=== PATIENT | male | born 1965 | race African-American/Black ===

== ENCOUNTER 2016-10-16 22:40 | Emergency (ER) | payer MEDICAID ==
[~2016-10-16] VITALS: Ht 188 cm; Wt 78.0 kg
[~2016-10-16 22:40] MED LIST: AZITHROMYCIN250 MG ORAL; CHLORPHENIRAMINE4 MG ORAL; CIPRO500 MG PO; IBUPROFEN600 MG ORAL; PHENERGAN6.25 MG/5 ORAL; PRILOSEC20 MG ORAL; TRAMADOL HCL50 MG ORAL
[2016-10-16] MEDS ORDERED: IBUPROFEN600 MG ORAL (23:11)
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
[2016-10-16 23:36] VITALS: BP 139/90
--- NOTE | 2016-10-17 09:22 | Diagnostic Imaging Report ---
Indications: Right knee pain Technique: 2 views right knee. Findings: Comparison: None Patella appears high in position on AP and oblique views but not lateral view. No fracture, additional dislocation, joint space widening or effusion, lytic destruction, periosteal reaction , surrounding soft tissue swelling/foreign body/gas, or other acute changes are identified. No chronic changes demonstrated. IMPRESSION: Apparent patella salomón on 2 of 3 views, likely projectional. Correlate clinically. Otherwise negative right knee series.
== END 2016-10-16 23:37 | disposition home or self-care (01) ==
LOC: EMR 23:15
DX: S80.01XA Contusion of right knee, initial encounter (principal); I10 Essential (primary) hypertension; E11.9 Type 2 diabetes mellitus without complications; G89.29 Other chronic pain; E78.00 Pure hypercholesterolemia, unspecified; Z88.0 Allergy status to penicillin; V03.90XA Pedestrian on foot injured in collision with car, pick-up truck or van, unspecified whether traffic or nontraffic accident, initial encounter; Y92.481 Parking lot as the place of occurrence of the external cause
CPT/HCPCS: 99283

== ENCOUNTER 2017-03-07 23:26 | Emergency (ER) | payer MEDICAID ==
[~2017-03-07] VITALS: Ht 188 cm; Wt 75.7 kg
[2017-03-07] MEDS ORDERED: GLYBURIDE1.25 MG PO (23:35)
[2017-03-07] MEDS ORDERED: SIMVASTATIN40 MG ORAL (23:35)
[2017-03-07] MEDS ORDERED: ASPIR-LOW81 MG ORAL (23:35)
[2017-03-07] MEDS ORDERED: ATENOLOL25 MG ORAL (23:35)
[2017-03-08] MEDS ORDERED: Morphine Sulfate 4mg/ml Inj IVP ONE
[2017-03-08 00:22] LABS: BASOPHILS % (AUTO) 1.1 % (0.0-2.0); LYMPHOCYTES % (AUTO) 45.7 % (20.0-45.0); MEAN CORPUSCULAR HEMOGLOBIN 28.4 PG (27.0-31.0); MEAN CORPUSCULAR HGB CONC 32.8 G/DL (32.0-36.0); MEAN CORPUSCULAR VOLUME 86 FL (80-99); MONOCYTES % (AUTO) 7.3 % (1.0-10.0); NEUTROPHILS % (AUTO) 42.9 % (45.0-75.0); PLATELET COUNT 327 K/UL (150-450); RED BLOOD COUNT 4.85 M/UL (4.70-6.10); RED CELL DISTRIBUTION WIDTH 12.9 % (11.6-14.8); WHITE BLOOD COUNT 8.1 K/UL (4.8-10.8)
[2017-03-08 00:23] VITALS: BP 122/82
[2017-03-08 01:07] LABS: ANION GAP 6 mmol/L (5-15); CALCIUM 9.3 MG/DL (8.5-10.1); CARBON DIOXIDE 30 MMOL/L (21-32); CHLORIDE 104 MMOL/L (98-107); CREATININE 1.2 MG/DL (0.55-1.30); GLOMERULAR FILTRATION RATE > 60 mL/min (>60); POTASSIUM 4.2 MMOL/L (3.5-5.1); SODIUM 140 MMOL/L (136-145)
[2017-03-08 01:12] LABS: ALANINE AMINOTRANSFERASE 17 U/L (12-78); ASPARTATE AMINO TRANSFERASE 9 U/L (15-37); LIPASE 199 U/L (73-393); TOTAL PROTEIN 7.3 G/DL (6.4-8.2)
[2017-03-08] MEDS ORDERED: IBUPROFEN600 MG ORAL (02:17)
[2017-03-08] MEDS ORDERED: ACETAMINOPHEN-1 EAC1 ORAL (02:17)
[2017-03-08] MEDS ORDERED: ZOFRAN ODT4 MG ORAL (02:17)
[2017-03-08 02:30] VITALS: BP 124/89
--- NOTE | 2017-03-08 04:11 | Emergency Room Report ---
History of Present Illness General Chief Complaint: Abdominal Pain Source: Patient Present Illness HPI Patient presents with complaints of headache Left-sided On-and-off for the past several days Patient saw his physician previously and was given neurology referral however that will not happen for another 10 days Patient also complains of the pain involving the left arm and left leg Patient complains of pain to the left side of the abdomen He has been nauseated denies any diarrhea denies any chest pain or shortness of breath Denies any focal weakness at this time Allergies: Coded Allergies: PENICILLINS (Unverified Allergy, Unknown, 04/01/14) Patient History Past Medical History: see triage record Pertinent Family History: none Reviewed Nursing Documentation: PMH: Agreed, PSxH: Agreed Nursing Documentation-PMH Hx Cardiac Problems: Yes - High Cholesterol Hx Hypertension: Yes - high cholesterol Hx Diabetes: Yes Hx Neurological Problems: Yes - Chronic Pain Review of Systems All Other Systems: negative except mentioned in HPI Physical Exam Vital Signs Date Time Temp Pulse Resp B/P (MAP) Pulse Ox O2 Delivery O2 Flow Rate FiO2 03/07/17 23:30 97.9 92 14 138/92 99 Room Air Sp02 EP Interpretation: reviewed, normal General Appearance: well appearing, no apparent distress Head: normocephalic, atraumatic Eyes: bilateral eye PERRL, bilateral eye EOMI ENT: hearing grossly normal, normal pharynx, TMs + canals normal, uvula midline Neck: full range of motion, supple, no meningismus, no bony tend Respiratory: lungs clear, normal breath sounds, no rhonchi, no respiratory distress, no retraction, no accessory muscle use Cardiovascular #1: normal peripheral pulses, regular rate, rhythm, no edema, no gallop, no JVD, no murmur Gastrointestinal: normal bowel sounds, non tender, soft, no mass, no organomegaly, non-distended, no guarding, no hernia, no pulsatile mass, no rebound Genitourinary: no CVA tenderness Musculoskeletal: normal inspection Neurologic: oriented x3, responsive, 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, motor strength/ tone normal, sensory intact Psychiatric: mood/affect normal Skin: normal color, no rash, warm/dry, palpation normal Lymphatic: normal inspection, no adenopathy Medical Decision Making Diagnostic Impression: Primary Impression: Abdominal pain Additional Impression: headache ER Course Patient is a fairly complex patient with multiple differential to consideration including but not limited to cardiac cardiopulmonary and vascular emergencies Intracranial pathology also entertained Patient's blood work is at baseline levels Clinical exam was fairly benign with a soft abdomen no focal deficits appreciated Patient's CT head is also negative for acute pathology Patient feel significantly better and is stable for close followup Labs Test 03/07/17 23:59 White Blood Count 8.1 K/UL (4.8-10.8) Red Blood Count 4.85 M/UL (4.70-6.10) Hemoglobin 13.8 G/DL (14.2-18.0) Hematocrit 41.9 % (42.0-52.0) Mean Corpuscular Volume 86 FL (80-99) Mean Corpuscular Hemoglobin 28.4 PG (27.0-31.0) Mean Corpuscular Hemoglobin Concent 32.8 G/DL (32.0-36.0) Red Cell Distribution Width 12.9 % (11.6-14.8) Platelet Count 327 K/UL (150-450) Mean Platelet Volume 6.0 FL (6.5-10.1) Neutrophils (%) (Auto) 42.9 % (45.0-75.0) Lymphocytes (%) (Auto) 45.7 % (20.0-45.0) Monocytes (%) (Auto) 7.3 % (1.0-10.0) Eosinophils (%) (Auto) 3.0 % (0.0-3.0) Basophils (%) (Auto) 1.1 % (0.0-2.0) Sodium Level 140 MMOL/L (136-145) Potassium Level 4.2 MMOL/L (3.5-5.1) Chloride Level 104 MMOL/L (98-107) Carbon Dioxide Level 30 MMOL/L (21-32) Anion Gap 6 mmol/L (5-15) Blood Urea Nitrogen 16 mg/dL (7-18) Creatinine 1.2 MG/DL (0.55-1.30) Estimat Glomerular Filtration Rate > 60 mL/min (>60) Glucose Level 271 MG/DL (74-106) Calcium Level 9.3 MG/DL (8.5-10.1) Total Bilirubin 0.2 MG/DL (0.2-1.0) Aspartate Amino Transf (AST/SGOT) 9 U/L (15-37) Alanine Aminotransferase (ALT/SGPT) 17 U/L (12-78) Alkaline Phosphatase 89 U/L (46-116) Total Protein 7.3 G/DL (6.4-8.2) Albumin 3.7 G/DL (3.4-5.0) Globulin 3.6 g/dL Albumin/Globulin Ratio 1.0 (1.0-2.7) Lipase 199 U/L (73-393) Rhythm Strip Diag. Results EP Interpretation: yes Rate: 66 Rhythm: NSR, no PVC's, no ectopy CT/MRI/US Diagnostic Results CT/MRI/US Diagnostic Results : Impression CT head: no acute disease Last Vital Signs Date Time Temp Pulse Resp B/P (MAP) Pulse Ox O2 Delivery O2 Flow Rate FiO2 03/08/17 02:30 97.9 75 11 124/89 100 Room Air Status: improved Disposition: HOME, SELF-CARE Condition: Improved Scripts Ondansetron Odt* (ZOFRAN ODT*) 4 Mg Tab.rapdis 4 MG ORAL Q6H Y for Nausea & Vomiting, #10 TAB 0 Refills Prov: RYLAND ORTEGA D.O. 03/08/17 Acetaminophen With Codeine (T#3) (TYLENOL #3 TAB*) Y Tab 1 TAB ORAL Q8H Y for For Pain, #10 TAB Prov: RYLAND ORTEGA D.O. 03/08/17 Ibuprofen* (MOTRIN*) 600 Mg Tablet 600 MG ORAL Q8H Y for For Pain, #20 TAB 0 Refills Prov: RYLAND ORTEGA D.O. 03/08/17 Referrals: [facility] (PCP) Patient Instructions: Abdominal Pain, Adult, General Headache Without Cause, Rplm-er-Tior Additional Instructions: Patient is provided with the discharge instructions notified to follow up with primary doctor in the next 2-3 days otherwise return to the er with any worsening symptoms. Please note that this report is being documented using [employer] technology. This can lead to erroneous entry secondary to incorrect interpretation by the dictating instrument. RYLAND ORTEGA D.O. Mar 08, 2017 04:11
--- NOTE | 2017-03-08 12:23 | Diagnostic Imaging Report ---
Indications: Headache x3 days Technique: Spiral acquisitions obtained through the brain. Angled axial and coronal 5 x 5 mm slices were reconstructed. Total dose length product 1452 mGycm. CTDI vol(s) 70 mGy. Dose reduction achieved using automated exposure control Comparison: None Findings: There is an old lacunar infarct in left basal ganglia. No acute intrarenal hemorrhage or edema. No mass effect or midline shift. There is very mild prominence of the ventricles and extra-axial CSF spaces. There is minimal periventricular deep white matter low-attenuation. Normal hwang-white differentiation otherwise. Intact calvarium. Visualized orbits and sinuses are unremarkable. Impression: Chronic and age-related changes as described, including old left basal ganglia lacunar infarct. Negative for acute intracranial bleed or mass effect This agrees with the preliminary interpretation provided overnight by [facility] teleradiology service. The CT scanner at [facility] is accredited by the [employer] and the scans are performed using protocols designed to limit radiation exposure to as low as reasonably achievable to attain images of sufficient resolution adequate for diagnostic evaluation.
== END 2017-03-08 02:32 | disposition home or self-care (01) ==
LOC: EMR 23:50
DX: R10.9 Unspecified abdominal pain (principal); R51 Headache; G89.29 Other chronic pain; I10 Essential (primary) hypertension; E11.9 Type 2 diabetes mellitus without complications; Z88.0 Allergy status to penicillin
CPT/HCPCS: 36415; 70450; 80053; 83690; 85025; 96361; 96374; 96375; 99284; J2270; J2405

== ENCOUNTER 2017-04-05 22:51 | Emergency (ER) | payer MEDICAID ==
[~2017-04-05] VITALS: Ht 182.9 cm; Wt 77.1 kg
[~2017-04-05 22:51] MED LIST changes: +ACETAMINOPHEN-1 EAC1 ORAL; +ASPIR-LOW81 MG ORAL; +ATENOLOL25 MG ORAL; +GLYBURIDE1.25 MG PO; +SIMVASTATIN40 MG ORAL; +ZOFRAN ODT4 MG ORAL
[2017-04-05 23:05] VITALS: BP 130/86
[2017-04-06 00:05] LABS: BASOPHILS % (AUTO) 1.4 % (0.0-2.0); EOSINOPHILS % (AUTO) 3.2 % (0.0-3.0); LYMPHOCYTES % (AUTO) 51.4 % (20.0-45.0); MEAN CORPUSCULAR HEMOGLOBIN 28.7 PG (27.0-31.0); MEAN CORPUSCULAR HGB CONC 33.6 G/DL (32.0-36.0); MEAN CORPUSCULAR VOLUME 85 FL (80-99); MEAN PLATELET VOLUME 5.8 FL (6.5-10.1); MONOCYTES % (AUTO) 6.5 % (1.0-10.0); NEUTROPHILS % (AUTO) 37.5 % (45.0-75.0); PLATELET COUNT 303 K/UL (150-450); RED BLOOD COUNT 4.61 M/UL (4.70-6.10); RED CELL DISTRIBUTION WIDTH 12.8 % (11.6-14.8); WHITE BLOOD COUNT 6.7 K/UL (4.8-10.8)
--- NOTE | 2017-04-06 00:14 | Emergency Room Report ---
History of Present Illness General Chief Complaint: Pain Source: Patient Present Illness HPI Patient present with several complaints Main complaint was left arm pain Left neck discomfort Patient also complains of left leg pain And left abdominal discomfort denies any fall or trauma denies any chest pressures of breath Denies any headache or visual changes Denies any change with his speech Denies any focal weakness The pain starts in the left shoulder coming down to the fingers Pain in the left leg his anterior into the knee and lower leg Allergies: Coded Allergies: PENICILLINS (Unverified Allergy, Unknown, 04/01/14) Patient History Past Medical History: see triage record Pertinent Family History: none Reviewed Nursing Documentation: PMH: Agreed, PSxH: Agreed Nursing Documentation-PMH Hx Cardiac Problems: Yes - High Cholesterol Hx Hypertension: Yes - high cholesterol Hx Diabetes: Yes Hx Neurological Problems: Yes - Chronic Pain Review of Systems All Other Systems: negative except mentioned in HPI Physical Exam Vital Signs Date Time Temp Pulse Resp B/P (MAP) Pulse Ox O2 Delivery O2 Flow Rate FiO2 04/05/17 22:54 97.9 86 16 122/85 99 Room Air Sp02 EP Interpretation: reviewed, normal General Appearance: well appearing, no apparent distress Head: normocephalic, atraumatic Eyes: bilateral eye PERRL, bilateral eye EOMI ENT: hearing grossly normal, normal pharynx, TMs + canals normal, uvula midline Neck: full range of motion, supple, no meningismus, no bony tend Respiratory: lungs clear, normal breath sounds, no rhonchi, no respiratory distress, no retraction, no accessory muscle use Cardiovascular #1: normal peripheral pulses, regular rate, rhythm, no edema, no gallop, no JVD, no murmur Gastrointestinal: normal bowel sounds, non tender, soft, no mass, no organomegaly, non-distended, no guarding, no hernia, no pulsatile mass, no rebound Genitourinary: no CVA tenderness Musculoskeletal: normal inspection Neurologic: oriented x3, responsive, 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, motor strength/ tone normal, sensory intact Psychiatric: mood/affect normal Skin: normal color, no rash, warm/dry, palpation normal Lymphatic: normal inspection, no adenopathy Medical Decision Making Diagnostic Impression: Primary Impression: Radiculopathy ER Course Patient is a fairly complex patient with multiple differential to consideration including but not limited to cardiac cardiopulmonary and vascular emergencies Patient complains of her appear to be fairly peripheral in nature EKG is negative for acute process Patient's blood work is at baseline levels Patient has rested comfortably and is stable for close followup Labs Test 04/05/17 23:46 White Blood Count 6.7 K/UL (4.8-10.8) Red Blood Count 4.61 M/UL (4.70-6.10) Hemoglobin 13.2 G/DL (14.2-18.0) Hematocrit 39.3 % (42.0-52.0) Mean Corpuscular Volume 85 FL (80-99) Mean Corpuscular Hemoglobin 28.7 PG (27.0-31.0) Mean Corpuscular Hemoglobin Concent 33.6 G/DL (32.0-36.0) Red Cell Distribution Width 12.8 % (11.6-14.8) Platelet Count 303 K/UL (150-450) Mean Platelet Volume 5.8 FL (6.5-10.1) Neutrophils (%) (Auto) 37.5 % (45.0-75.0) Lymphocytes (%) (Auto) 51.4 % (20.0-45.0) Monocytes (%) (Auto) 6.5 % (1.0-10.0) Eosinophils (%) (Auto) 3.2 % (0.0-3.0) Basophils (%) (Auto) 1.4 % (0.0-2.0) Sodium Level 139 MMOL/L (136-145) Potassium Level 3.8 MMOL/L (3.5-5.1) Chloride Level 103 MMOL/L (98-107) Carbon Dioxide Level 29 MMOL/L (21-32) Anion Gap 7 mmol/L (5-15) Blood Urea Nitrogen 13 mg/dL (7-18) Creatinine 1.3 MG/DL (0.55-1.30) Estimat Glomerular Filtration Rate > 60 mL/min (>60) Glucose Level 200 MG/DL (74-106) Calcium Level 8.6 MG/DL (8.5-10.1) Total Bilirubin 0.2 MG/DL (0.2-1.0) Aspartate Amino Transf (AST/SGOT) 13 U/L (15-37) Alanine Aminotransferase (ALT/SGPT) 15 U/L (12-78) Alkaline Phosphatase 87 U/L (46-116) Total Protein 7.2 G/DL (6.4-8.2) Albumin 3.6 G/DL (3.4-5.0) Globulin 3.6 g/dL Albumin/Globulin Ratio 1.0 (1.0-2.7) Lipase 382 U/L (73-393) EKG Diagnostic Results Rate: normal Rhythm: NSR ST Segments: other - Nonspecific ST T-wave changes Rhythm Strip Diag. Results EP Interpretation: yes Rate: 78 Rhythm: NSR, no PVC's, no ectopy Last Vital Signs Date Time Temp Pulse Resp B/P (MAP) Pulse Ox O2 Delivery O2 Flow Rate FiO2 04/05/17 22:54 97.9 86 16 122/85 99 Room Air Status: improved Disposition: HOME, SELF-CARE Condition: Improved Referrals: [facility] (PCP) Additional Instructions: Patient is provided with the discharge instructions notified to follow up with primary doctor in the next 2-3 days otherwise return to the er with any worsening symptoms. Please note that this report is being documented using [employer] technology. This can lead to erroneous entry secondary to incorrect interpretation by the dictating instrument. RYLAND ORTEGA D.O. Apr 06, 2017 00:14
[2017-04-06 00:18] LABS: ANION GAP 7 mmol/L (5-15); CALCIUM 8.6 MG/DL (8.5-10.1); CARBON DIOXIDE 29 MMOL/L (21-32); CHLORIDE 103 MMOL/L (98-107); CREATININE 1.3 MG/DL (0.55-1.30); GLOMERULAR FILTRATION RATE > 60 mL/min (>60); POTASSIUM 3.8 MMOL/L (3.5-5.1); SODIUM 139 MMOL/L (136-145)
[2017-04-06 00:24] LABS: ALANINE AMINOTRANSFERASE 15 U/L (12-78); ASPARTATE AMINO TRANSFERASE 13 U/L (15-37); LIPASE 382 U/L (73-393); TOTAL PROTEIN 7.2 G/DL (6.4-8.2)
[2017-04-06 00:45] VITALS: BP 126/84
[2017-04-06 00:50] VITALS: BP 126/84
== END 2017-04-06 00:50 | disposition home or self-care (01) ==
LOC: EMR 23:11
DX: M79.602 Pain in left arm (principal); M79.605 Pain in left leg; Z88.0 Allergy status to penicillin; I10 Essential (primary) hypertension; E11.9 Type 2 diabetes mellitus without complications; G89.29 Other chronic pain
CPT/HCPCS: 36415; 80053; 83690; 85025; 99283

== ENCOUNTER 2017-04-26 21:43 | Emergency (ER) | payer MEDICAID ==
[~2017-04-26] VITALS: Ht 185.4 cm; Wt 77.1 kg
[2017-04-26 22:26] VITALS: BP 143/85
--- NOTE | 2017-04-26 22:34 | Emergency Room Report ---
History of Present Illness General Chief Complaint: Left side numbness Source: Patient Present Illness HPI Patient 51-year-old male brought in by self after having increased left-sided neck pain. Patient gradual onset of symptoms. Patient reports having symptoms intermittently for the past 3 months. The patient had recently had cardiac evaluation at [facility]. The patient presented intermittent left- sided weakness. He denies recent trauma. Allergies: Coded Allergies: PENICILLINS (Unverified Allergy, Unknown, 04/01/14) Patient History Reviewed Nursing Documentation: PMH: Agreed, PSxH: Agreed Nursing Documentation-PMH Hx Cardiac Problems: Yes - High Cholesterol Hx Hypertension: Yes - high cholesterol Hx Diabetes: Yes Hx Neurological Problems: Yes - Chronic Pain Review of Systems All Other Systems: negative except mentioned in HPI Physical Exam Vital Signs Date Time Temp Pulse Resp B/P (MAP) Pulse Ox O2 Delivery O2 Flow Rate FiO2 04/26/17 22:14 98.2 77 14 143/85 100 Room Air Sp02 EP Interpretation: reviewed, normal General Appearance: normal inspection, well appearing, no apparent distress, alert, GCS 15 Head: atraumatic ENT: normal ENT inspection, hearing grossly normal, normal voice Neck: normal inspection, full range of motion, supple, no bony tend Respiratory: normal inspection, lungs clear, normal breath sounds, no respiratory distress, no retraction, no wheezing Cardiovascular #1: regular rate, rhythm, no edema Gastrointestinal: normal inspection, normal bowel sounds, non tender, soft, no guarding, no hernia Genitourinary: no CVA tenderness Musculoskeletal: normal inspection, back normal, normal range of motion Neurologic: normal inspection, alert, oriented x3, responsive, 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 Differential diagnosis included vertebral artery dissection, myocardial infarction, cervical fracture, arthritis , spondylolithises. Because of complexity of patient's case laboratory testing and imaging studies were ordered. CT the head read by radiology showed old lacunar infarct. Patient showed nonfocal neurologic exam and has downgoing toes bilaterally. At the time of discharge patient is awake alert oriented and able to ambulate without assistance. The patient was advised that he may need MRI and likely needs neurology followup. The patient is advised to follow up with primary care doctor in 1-2 days. Patient is advised to return if any worsening condition or if any changes in status that are concerning. This report is dictated with [employer] director of manufacturing operations software which may occasionally lead to discrepancies related to use of this software. Labs Test 04/27/17 00:15 White Blood Count 6.6 K/UL (4.8-10.8) Red Blood Count 4.99 M/UL (4.70-6.10) Hemoglobin 14.0 G/DL (14.2-18.0) Hematocrit 42.5 % (42.0-52.0) Mean Corpuscular Volume 85 FL (80-99) Mean Corpuscular Hemoglobin 28.0 PG (27.0-31.0) Mean Corpuscular Hemoglobin Concent 32.8 G/DL (32.0-36.0) Red Cell Distribution Width 12.9 % (11.6-14.8) Platelet Count 358 K/UL (150-450) Mean Platelet Volume 5.6 FL (6.5-10.1) Neutrophils (%) (Auto) 43.1 % (45.0-75.0) Lymphocytes (%) (Auto) 48.7 % (20.0-45.0) Monocytes (%) (Auto) 4.3 % (1.0-10.0) Eosinophils (%) (Auto) 2.3 % (0.0-3.0) Basophils (%) (Auto) 1.6 % (0.0-2.0) Prothrombin Time 10.7 SEC (9.30-11.50) Prothromb Time International Ratio 1.0 (0.9-1.1) Activated Partial Thromboplast Time 27 SEC (23-33) Sodium Level 138 MMOL/L (136-145) Potassium Level 3.8 MMOL/L (3.5-5.1) Chloride Level 104 MMOL/L (98-107) Carbon Dioxide Level 24 MMOL/L (21-32) Anion Gap 10 mmol/L (5-15) Blood Urea Nitrogen 12 mg/dL (7-18) Creatinine 1.0 MG/DL (0.55-1.30) Estimat Glomerular Filtration Rate > 60 mL/min (>60) Glucose Level 241 MG/DL (74-106) Calcium Level 8.2 MG/DL (8.5-10.1) Total Bilirubin 0.3 MG/DL (0.2-1.0) Aspartate Amino Transf (AST/SGOT) 15 U/L (15-37) Alanine Aminotransferase (ALT/SGPT) 14 U/L (12-78) Alkaline Phosphatase 89 U/L (46-116) Troponin I 0.000 ng/mL (0.000-0.056) Pro-B-Type Natriuretic Peptide 33 pg/mL (0-125) Total Protein 7.3 G/DL (6.4-8.2) Albumin 3.5 G/DL (3.4-5.0) Globulin 3.8 g/dL Albumin/Globulin Ratio 0.9 (1.0-2.7) Last Vital Signs Date Time Temp Pulse Resp B/P (MAP) Pulse Ox O2 Delivery O2 Flow Rate FiO2 04/26/17 22:26 98.2 76 16 143/85 100 Room Air Status: improved Disposition: HOME, SELF-CARE Condition: Stable Scripts Cyclobenzaprine Hcl* (FLEXERIL*) 10 Mg Tablet 10 MG ORAL TID Y for Muscle Spasm, #20 TAB Prov: Shukri Taylor 04/27/17 Shukri Taylor Apr 26, 2017 22:34
[2017-04-26 23:56] VITALS: BP 146/80
[2017-04-27 00:44] LABS: BASOPHILS % (AUTO) 1.6 % (0.0-2.0); EOSINOPHILS % (AUTO) 2.3 % (0.0-3.0); HEMATOCRIT 42.5 % (42.0-52.0); LYMPHOCYTES % (AUTO) 48.7 % (20.0-45.0); MEAN CORPUSCULAR VOLUME 85 FL (80-99); MONOCYTES % (AUTO) 4.3 % (1.0-10.0); NEUTROPHILS % (AUTO) 43.1 % (45.0-75.0); PLATELET COUNT 358 K/UL (150-450); RED BLOOD COUNT 4.99 M/UL (4.70-6.10); RED CELL DISTRIBUTION WIDTH 12.9 % (11.6-14.8); WHITE BLOOD COUNT 6.6 K/UL (4.8-10.8)
[2017-04-27 00:56] LABS: ANION GAP 10 mmol/L (5-15); BLOOD UREA NITROGEN 12 mg/dL (7-18); CALCIUM 8.2 MG/DL (8.5-10.1); CARBON DIOXIDE 24 MMOL/L (21-32); CHLORIDE 104 MMOL/L (98-107); POTASSIUM 3.8 MMOL/L (3.5-5.1); SODIUM 138 MMOL/L (136-145)
[2017-04-27 01:07] LABS: ALANINE AMINOTRANSFERASE 14 U/L (12-78); ALBUMIN 3.5 G/DL (3.4-5.0); ALBUMIN/GLOBULIN RATIO 0.9 (1.0-2.7); ALKALINE PHOSPHATASE 89 U/L (46-116); ASPARTATE AMINO TRANSFERASE 15 U/L (15-37); BILIRUBIN,TOTAL 0.3 MG/DL (0.2-1.0)
[2017-04-27 01:18] VITALS: BP 150/96
[2017-04-27] MEDS ORDERED: CYCLOBENZAPRINE10 MG ORAL (01:20)
[2017-04-27 01:29] VITALS: BP 150/96
--- NOTE | 2017-04-27 11:12 | Diagnostic Imaging Report ---
Indications: 6 intermittent left-sided weakness, pain Technique: Spiral acquisitions obtained through the brain. Angled axial and coronal 5 x 5 mm slices were reconstructed. Total dose length product 1471.09 mGycm. CTDI vol(s) 70.38 mGy. Dose reduction achieved using automated exposure control Comparison: 03/08/2017 Findings: Again demonstrated is an old lacunar infarct involving the left fuentes radiata and basal ganglia. No acute intracranial hemorrhage or edema. No mass effect nor midline shift. Normal hwang-white differentiation. There is some focal cortical encephalomalacia in the left parasagittal frontal lobe. The visualized orbits and sinuses are unremarkable. The calvarium is intact. Impression: Negative for acute intracranial bleed or mass effect Old left-sided is ganglia and fuentes radiata lacunar infarct. Possible old left parasagittal frontal cortical infarct This agrees with the preliminary interpretation provided overnight by [employer] teleradiology service. The CT scanner at [facility] is accredited by the [employer] and the scans are performed using protocols designed to limit radiation exposure to as low as reasonably achievable to attain images of sufficient resolution adequate for diagnostic evaluation.
--- NOTE | 2017-05-05 16:02 | Cardiology Report ---
APPROVED REPORT EKG Measurement Heart [id number] Normal sinus rhythm Normal ECG
== END 2017-04-27 01:35 | disposition home or self-care (01) ==
LOC: EMR 22:25
DX: M54.12 Radiculopathy, cervical region (principal); I10 Essential (primary) hypertension; E11.9 Type 2 diabetes mellitus without complications; G89.29 Other chronic pain; R51 Headache; Z88.0 Allergy status to penicillin; Z86.73 Personal history of transient ischemic attack (TIA), and cerebral infarction without residual deficits; E78.00 Pure hypercholesterolemia, unspecified
CPT/HCPCS: 36415; 70450; 80053; 83880; 84484; 85025; 85610; 85730; 93005; 96360; 99284

== ENCOUNTER 2017-07-21 21:58 | Emergency (ER) | payer MEDICAID ==
[~2017-07-21] VITALS: Ht 182.9 cm; Wt 76.2 kg
[~2017-07-21 21:58] MED LIST changes: +CYCLOBENZAPRINE10 MG ORAL
[2017-07-21] MEDS ORDERED: Pantoprazole Inj IV ONE (22:45)
[2017-07-21 23:05] LABS: APPEARANCE,URINE SLIGHTLY CLOUDY; BILIRUBIN, URINE NEGATIVE (NEGATIVE); GLUCOSE, URINE (UA) 3+ (NEGATIVE); KETONES,URINE NEGATIVE (NEGATIVE); LEUKOCYTE ESTERASE ,URINE 1+ (NEGATIVE); NITRITE,URINE NEGATIVE (NEGATIVE); PH,URINE 5 (4.5-8.0); PROTEIN,URINE 2+ (NEGATIVE); UROBILINOGEN,URINE 1 MG/DL (0.0-1.0)
--- NOTE | 2017-07-21 23:16 | Emergency Room Report ---
History of Present Illness General Chief Complaint: Abdominal Pain Source: Patient, Medical Record Present Illness HPI This is a 51-year-old male with history of blood pressure and diabetes. He presents with chief complaint of abdominal pain mostly epigastric area. His been ongoing for about 3-4 weeks. He had a recent CAT scan done last week but has not been read yet. His doctor placed him on H2 espinoza and is not helping. Pain is sharp and crampy. Nothing made it better. Nothing made it worse. Pain is 8 out of 10. No radiation. No nausea no vomiting. No fever or chills. Allergies: Coded Allergies: PENICILLINS (Unverified Allergy, Unknown, 04/01/14) Patient History Past Medical History: see triage record, old chart reviewed, DM, HTN Past Surgical History: other Pertinent Family History: none Social History: Denies: smoking Immunizations: other Reviewed Nursing Documentation: PMH: Agreed; PSxH: Agreed Nursing Documentation-PMH Hx Cardiac Problems: Yes - High Cholesterol Hx Hypertension: Yes - high cholesterol Hx Diabetes: Yes Hx Neurological Problems: Yes - Chronic Pain Review of Systems Eye: Denies: eye pain, blurred vision ENT: Denies: ear pain, nose congestion, throat swelling Respiratory: Denies: cough, shortness of breath Cardiovascular: Denies: chest pain, palpitations Gastrointestinal: Reports: abdominal pain; Denies: diarrhea, nausea, vomiting Musculoskeletal: Denies: back pain, joint pain Skin: Denies: rash Neurological: Denies: headache, numbness Endocrine: Denies: increased thirst, increased urine Hematologic/Lymphatic: Denies: easy bruising All Other Systems: negative except mentioned in HPI Physical Exam Vital Signs Date Time Temp Pulse Resp B/P (MAP) Pulse Ox O2 Delivery O2 Flow Rate FiO2 07/21/17 22:03 98.4 96 18 130/91 98 Room Air 98.4 vitals normal Sp02 EP Interpretation: reviewed, normal General Appearance: well appearing, no apparent distress, alert Head: normocephalic, atraumatic Eyes: bilateral eye PERRL, bilateral eye EOMI ENT: hearing grossly normal, normal pharynx Neck: full range of motion, supple, no meningismus Respiratory: chest non-tender, lungs clear, normal breath sounds Cardiovascular #1: regular rate, rhythm, no murmur Gastrointestinal: normal bowel sounds, non tender, no mass, no organomegaly, no bruit, non-distended Musculoskeletal: back normal, gait/station normal, normal range of motion Psychiatric: mood/affect normal Skin: warm/dry Medical Decision Making Diagnostic Impression: Primary Impression: Abdominal pain of unknown etiology Additional Impression: Uncontrolled diabetes mellitus ER Course Patient with abdominal pain. Better with Protonix. He just prescribed protonic at home also. No evidence of an acute abdomen. He had an MRI done already. Still waiting for reading. I see no need for CT scan. If not better he may need endoscopy or colonoscopy. We'll discharge home. Lab Results Impression labs with mild hyperglycemia Last Vital Signs Date Time Temp Pulse Resp B/P (MAP) Pulse Ox O2 Delivery O2 Flow Rate FiO2 07/21/17 22:03 98.4 96 18 130/91 98 Room Air 98.4 Status: improved Disposition: HOME, SELF-CARE Condition: Stable Referrals: [facility] (PCP) Additional Instructions: Follow-up with your doctor in 7 days. Have the MRI read. If not better on your medications, may knee referred to see a fishing hand for endoscopy and/or colonoscopy. OLIVIA PEOPLES M.D. Jul 21, 2017 23:16
[2017-07-21 23:19] LABS: ANION GAP 7 mmol/L (5-15); BLOOD UREA NITROGEN 13 mg/dL (7-18); CALCIUM 9.1 MG/DL (8.5-10.1); CARBON DIOXIDE 30 MMOL/L (21-32); CHLORIDE 104 MMOL/L (98-107); CREATININE 1.3 MG/DL (0.55-1.30); POTASSIUM 4.5 MMOL/L (3.5-5.1); SODIUM 141 MMOL/L (136-145)
[2017-07-21 23:22] LABS: ALANINE AMINOTRANSFERASE 18 U/L (12-78); ALBUMIN 3.9 G/DL (3.4-5.0); ALBUMIN/GLOBULIN RATIO 1.1 (1.0-2.7); ALKALINE PHOSPHATASE 96 U/L (46-116); ASPARTATE AMINO TRANSFERASE 15 U/L (15-37); BILIRUBIN,TOTAL 0.2 MG/DL (0.2-1.0)
[2017-07-21 23:28] LABS: BASOPHILS % (AUTO) 1.5 % (0.0-2.0); EOSINOPHILS % (AUTO) 1.8 % (0.0-3.0); HEMATOCRIT 42.5 % (42.0-52.0); HEMOGLOBIN 14.2 G/DL (14.2-18.0); LYMPHOCYTES % (AUTO) 50.5 % (20.0-45.0); MEAN CORPUSCULAR VOLUME 82 FL (80-99); MONOCYTES % (AUTO) 7.6 % (1.0-10.0); NEUTROPHILS % (AUTO) 38.5 % (45.0-75.0); PLATELET COUNT 315 K/UL (150-450); RED BLOOD COUNT 5.16 M/UL (4.70-6.10); RED CELL DISTRIBUTION WIDTH 11.9 % (11.6-14.8); WHITE BLOOD COUNT 6.7 K/UL (4.8-10.8)
[2017-07-21 23:30] VITALS: BP 109/61
[2017-07-21 23:30] LABS: COLOR,URINE YELLOW
[2017-07-22 00:15] VITALS: BP 109/61
== END 2017-07-22 00:15 | disposition home or self-care (01) ==
LOC: EMR 22:47
DX: R10.9 Unspecified abdominal pain (principal); E11.65 Type 2 diabetes mellitus with hyperglycemia; I10 Essential (primary) hypertension; Z88.0 Allergy status to penicillin
CPT/HCPCS: 36415; 80053; 80307; 81003; 83690; 85025; 96374; 99284; C9113

== ENCOUNTER 2017-07-29 22:03 | Emergency (ER) | payer MEDICAID ==
[~2017-07-29] VITALS: Ht 182.9 cm; Wt 76.2 kg
[2017-07-29] MEDS ORDERED: METFORMIN HCL1000 M1 ORAL (22:17)
[2017-07-29 22:25] VITALS: BP 129/82
[2017-07-29 23:24] LABS: APPEARANCE,URINE CLEAR; BILIRUBIN, URINE NEGATIVE (NEGATIVE); GLUCOSE, URINE (UA) NEGATIVE (NEGATIVE); KETONES,URINE NEGATIVE (NEGATIVE); LEUKOCYTE ESTERASE ,URINE NEGATIVE (NEGATIVE); NITRITE,URINE NEGATIVE (NEGATIVE); PH,URINE 6 (4.5-8.0); PROTEIN,URINE 3+ (NEGATIVE); UROBILINOGEN,URINE 1 MG/DL (0.0-1.0)
[2017-07-29 23:29] LABS: BASOPHILS % (AUTO) 1.9 % (0.0-2.0); EOSINOPHILS % (AUTO) 2.2 % (0.0-3.0); HEMATOCRIT 41.5 % (42.0-52.0); HEMOGLOBIN 13.9 G/DL (14.2-18.0); LYMPHOCYTES % (AUTO) 43.2 % (20.0-45.0); MEAN CORPUSCULAR VOLUME 82 FL (80-99); MONOCYTES % (AUTO) 7.9 % (1.0-10.0); NEUTROPHILS % (AUTO) 44.7 % (45.0-75.0); PLATELET COUNT 319 K/UL (150-450); RED BLOOD COUNT 5.04 M/UL (4.70-6.10); RED CELL DISTRIBUTION WIDTH 12.4 % (11.6-14.8); WHITE BLOOD COUNT 6.8 K/UL (4.8-10.8)
[2017-07-29 23:35] VITALS: BP 126/90
[2017-07-29 23:35] LABS: COLOR,URINE YELLOW
[2017-07-29 23:36] LABS: ANION GAP 8 mmol/L (5-15); BLOOD UREA NITROGEN 12 mg/dL (7-18); CALCIUM 9.4 MG/DL (8.5-10.1); CARBON DIOXIDE 29 MMOL/L (21-32); CHLORIDE 103 MMOL/L (98-107); CREATININE 1.3 MG/DL (0.55-1.30); POTASSIUM 4.3 MMOL/L (3.5-5.1); SODIUM 140 MMOL/L (136-145)
[2017-07-29 23:40] LABS: ALANINE AMINOTRANSFERASE 20 U/L (12-78); ALBUMIN 4.1 G/DL (3.4-5.0); ALBUMIN/GLOBULIN RATIO 1.1 (1.0-2.7); ALKALINE PHOSPHATASE 87 U/L (46-116); ASPARTATE AMINO TRANSFERASE 17 U/L (15-37); BILIRUBIN,TOTAL 0.3 MG/DL (0.2-1.0)
--- NOTE | 2017-07-29 23:59 | Emergency Room Report ---
History of Present Illness General Chief Complaint: Generalized Weakness Source: Patient, Medical Record Present Illness HPI This is a 51-year-old male with history of high blood pressure and diabetes. He presents with chief complaint of left-sided weakness. Onset was about a couple hours ago. He was in the shower when he felt pain and weakness to his left arm and legs. Also some pain to the left facial area. Does not know if involved the forehead are not. He said he had a hard time keeping his balance and next she fell. Denies any trauma. Pain resolved now. Been having intermittent sharp pain to the left side of his head for last week. Denies any focal deficit right now. Denies any slurred speech. Allergies: Coded Allergies: PENICILLINS (Unverified Allergy, Unknown, 04/01/14) Patient History Past Medical History: see triage record, old chart reviewed Past Surgical History: other Pertinent Family History: none Social History: Denies: smoking Immunizations: other Reviewed Nursing Documentation: PMH: Agreed; PSxH: Agreed Nursing Documentation-PMH Past Medical History: No History, Except For Hx Cardiac Problems: Yes - High Cholesterol Hx Hypertension: Yes Hx Diabetes: Yes Hx Neurological Problems: Yes - Chronic Pain left-facial area Review of Systems Eye: Denies: eye pain, blurred vision ENT: Denies: ear pain, nose congestion, throat swelling Respiratory: Denies: cough, shortness of breath Cardiovascular: Denies: chest pain, palpitations Gastrointestinal: Denies: abdominal pain, diarrhea, nausea, vomiting Musculoskeletal: Denies: back pain, joint pain Skin: Denies: rash Neurological: Reports: headache, numbness, focal weakness Endocrine: Denies: increased thirst, increased urine Hematologic/Lymphatic: Denies: easy bruising All Other Systems: negative except mentioned in HPI Physical Exam Vital Signs Date Time Temp Pulse Resp B/P (MAP) Pulse Ox O2 Delivery O2 Flow Rate FiO2 07/29/17 22:09 98.2 92 16 132/85 99 Room Air 98.2 vitals normal Sp02 EP Interpretation: reviewed, normal General Appearance: well appearing, no apparent distress, alert Head: normocephalic, atraumatic Eyes: bilateral eye PERRL, bilateral eye EOMI ENT: hearing grossly normal, normal pharynx Neck: full range of motion, supple, no meningismus Respiratory: chest non-tender, lungs clear, normal breath sounds Cardiovascular #1: regular rate, rhythm, no murmur Gastrointestinal: normal bowel sounds, non tender, no mass, no organomegaly, no bruit, non-distended Musculoskeletal: back normal, gait/station normal, normal range of motion Psychiatric: mood/affect normal Skin: warm/dry Medical Decision Making Diagnostic Impression: Primary Impression: TIA (transient ischemic attack) Qualified Codes: G45.9 - Transient cerebral ischemic attack, unspecified Additional Impression: Proteinuria Qualified Codes: R80.9 - Proteinuria, unspecified ER Course Patient presents with symptom concerning for possible TIA. No bleed or meningitis. No sepsis and pneumonia. Patient will be admitted versus transfer based on his insurance. I spoke with Dr. Botello at [facility]. He accepted patient for transfer to [facility]. Laboratory Tests Test 07/29/17 23:00 07/29/17 23:15 Urine Color Yellow Urine Appearance Clear Urine pH 6 (4.5-8.0) Urine Specific [place] 1.020 (1.005-1.035) Urine Protein 3+ (NEGATIVE) H Urine Glucose (UA) Negative (NEGATIVE) Urine Ketones Negative (NEGATIVE) Urine Occult Blood Negative (NEGATIVE) Urine Nitrite Negative (NEGATIVE) Urine Bilirubin Negative (NEGATIVE) Urine Urobilinogen 1 MG/DL (0.0-1.0) H Urine Leukocyte Esterase Negative (NEGATIVE) Urine RBC 0-2 /HPF (0 - 0) H Urine WBC 0-2 /HPF (0 - 0) Urine Squamous Epithelial Cells None /LPF (NONE/OCC) Urine Bacteria Few /HPF (NONE) Urine Opiates Screen Positive (NEGATIVE) H Urine Barbiturates Screen Negative (NEGATIVE) Phencyclidine (PCP) Screen Negative (NEGATIVE) Urine Amphetamines Screen Negative (NEGATIVE) Urine Benzodiazepines Screen Negative (NEGATIVE) Urine Cocaine Screen Negative (NEGATIVE) Urine Marijuana (THC) Screen Negative (NEGATIVE) White Blood Count 6.8 K/UL (4.8-10.8) Red Blood Count 5.04 M/UL (4.70-6.10) Hemoglobin 13.9 G/DL (14.2-18.0) L Hematocrit 41.5 % (42.0-52.0) L Mean Corpuscular Volume 82 FL (80-99) Mean Corpuscular Hemoglobin 27.5 PG (27.0-31.0) Mean Corpuscular Hemoglobin Concent 33.4 G/DL (32.0-36.0) Red Cell Distribution Width 12.4 % (11.6-14.8) Platelet Count 319 K/UL (150-450) Mean Platelet Volume 6.1 FL (6.5-10.1) L Neutrophils (%) (Auto) 44.7 % (45.0-75.0) L Lymphocytes (%) (Auto) 43.2 % (20.0-45.0) Monocytes (%) (Auto) 7.9 % (1.0-10.0) Eosinophils (%) (Auto) 2.2 % (0.0-3.0) Basophils (%) (Auto) 1.9 % (0.0-2.0) Prothrombin Time 10.4 SEC (9.30-11.50) Prothromb Time International Ratio 1.0 (0.9-1.1) Activated Partial Thromboplast Time 27 SEC (23-33) Sodium Level 140 MMOL/L (136-145) Potassium Level 4.3 MMOL/L (3.5-5.1) Chloride Level 103 MMOL/L (98-107) Carbon Dioxide Level 29 MMOL/L (21-32) Anion Gap 8 mmol/L (5-15) Blood Urea Nitrogen 12 mg/dL (7-18) Creatinine 1.3 MG/DL (0.55-1.30) Estimat Glomerular Filtration Rate > 60 mL/min (>60) Glucose Level 153 MG/DL (74-106) H Calcium Level 9.4 MG/DL (8.5-10.1) Total Bilirubin 0.3 MG/DL (0.2-1.0) Aspartate Amino Transf (AST/SGOT) 17 U/L (15-37) Alanine Aminotransferase (ALT/SGPT) 20 U/L (12-78) Alkaline Phosphatase 87 U/L (46-116) Total Protein 7.9 G/DL (6.4-8.2) Albumin 4.1 G/DL (3.4-5.0) Globulin 3.8 g/dL Albumin/Globulin Ratio 1.1 (1.0-2.7) Lab Results Impression labs unremarkable EKG Diagnostic Results Rate: normal Rhythm: NSR ST Segments: no acute changes ASA given to the pt in ED: Yes Rhythm Strip Diag. Results Rhythm Strip Time: 23:58 EP Interpretation: yes Rate: 80 Rhythm: NSR, no PVC's, no ectopy Chest X-Ray Diagnostic Results Chest X-Ray Diagnostic Results : Chest X-Ray Ordered: Yes # of Views/Limited/Complete: 1 View Indication: Other - TIA EP Interpretation: Yes Interpretation: no consolidation, no effusion, no pneumothorax, no acute cardiopulmonary disease Impression: No acute disease Electronically Signed by: Akhil Kuhn MD CT/MRI/US Diagnostic Results CT/MRI/US Diagnostic Results : Imaging Test Ordered: CT head Impression negative per radiologist Last Vital Signs Date Time Temp Pulse Resp B/P (MAP) Pulse Ox O2 Delivery O2 Flow Rate FiO2 07/29/17 22:09 98.2 92 16 132/85 99 Room Air 98.2 Status: improved Disposition: [facility]FER [facility] Condition: Stable Referrals: [facility] (PCP) AKHIL KUHN M.D. Jul 29, 2017 23:59
[2017-07-30 00:35] VITALS: BP 132/84
[2017-07-30 01:35] VITALS: BP 128/79
[2017-07-30 01:45] VITALS: BP 132/84
--- NOTE | 2017-07-30 09:22 | Diagnostic Imaging Report ---
Indication: Altered mental status Technique: Contiguous 5 mm thick transaxial imaging of the head obtained in a Siemens Sensation [address] scanner. Soft tissue and bone windows generated. Automatic Exposure Control was utilized. Total Dose length Product (DLP): 1375.[address] Dose Index Volume (CTDIvol): 70.38 mGy Comparison: 04/26/2017 Findings: The size and configuration of the cortical sulci, basal cisterns, and ventricles are within normal limits for age. There is a cystic focus in the left fuentes radiata/basal ganglia consistent with an old lacunar infarct. There is no mass effect, midline shift, or edema identified. There is no evidence of acute hemorrhage or abnormal extra-axial fluid collections. The bones and soft tissues are unremarkable. Impression: No mass effect, edema or acute bleed. 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 [facility] has communicated the preliminary results to the Emergency Department. Their findings are largely concordant with this report. The CT scanner at [facility] is accredited by the [employer] and the scans are performed using dose optimization techniques as appropriate to a performed exam including Automatic Exposure control.
--- NOTE | 2017-07-30 09:51 | Diagnostic Imaging Report ---
Indication: Dyspnea Comparison: 05/13/2014 A single view chest radiograph was obtained. Findings: Cardiomediastinal appearance is within normal limits for age. Pulmonary vascularity is appropriate. The diaphragmatic contour is smooth and costophrenic angles are sharp. No pleural effusions are identified. The bones are unremarkable. Impression: No acute findings
== END 2017-07-30 01:45 | disposition short-term general hospital (02) ==
LOC: EMR 22:52
DX: G45.9 Transient cerebral ischemic attack, unspecified (principal); R80.9 Proteinuria, unspecified; E11.9 Type 2 diabetes mellitus without complications; I10 Essential (primary) hypertension; Z88.0 Allergy status to penicillin; G89.29 Other chronic pain; E78.00 Pure hypercholesterolemia, unspecified
CPT/HCPCS: 36415; 70450; 71045; 80053; 80307; 81003; 85025; 85610; 85730; 93005; 99285

== ENCOUNTER 2017-11-01 17:52 | Emergency (ER) | payer MEDICAID ==
[~2017-11-01] VITALS: Ht 182.9 cm; Wt 76.2 kg
[~2017-11-01 17:52] MED LIST changes: +METFORMIN HCL1000 M1 ORAL
[2017-11-01] MEDS ORDERED: LANTUS SOL100 UNIT/1 SUBQ (18:13)
[2017-11-01] MEDS ORDERED: TYLENOL EXTRA500 MG ORAL (18:32)
[2017-11-01] MEDS ORDERED: ROBAXIN-750750 MG PO (18:32)
[2017-11-01 18:39] VITALS: BP 111/71
--- NOTE | 2017-11-03 07:40 | Emergency Room Report ---
History of Present Illness General Chief Complaint: General Complaint Source: Patient Present Illness HPI 52-year-old male presents ED complaining of right foot pain times one week. Denies any recent injury. States there is pain to the bottom of his foot. Sharp, 7 out of 10, radiating through the ankle, worse with walking. States there is no pain if he is resting. No other aggravating relieving factors. Denies any other associated symptoms Allergies: Coded Allergies: PENICILLINS (Unverified Allergy, Unknown, 04/01/14) Patient History Past Medical History: HTN Past Surgical History: none Pertinent Family History: none Social History: Denies: smoking, alcohol use, drug use Immunizations: UTD Reviewed Nursing Documentation: PMH: Agreed; PSxH: Agreed Nursing Documentation-PMH Past Medical History: No History, Except For Hx Cardiac Problems: Yes - High Cholesterol Hx Hypertension: Yes Hx Diabetes: Yes Hx Neurological Problems: Yes - Chronic Pain left-facial area Review of Systems All Other Systems: negative except mentioned in HPI Physical Exam Vital Signs Date Time Temp Pulse Resp B/P (MAP) Pulse Ox O2 Delivery O2 Flow Rate FiO2 11/01/17 18:08 98.1 89 16 122/77 96 Room Air 98.1 Sp02 EP Interpretation: reviewed, normal General Appearance: no apparent distress, alert, GCS 15, non-toxic Head: normocephalic, atraumatic Eyes: bilateral eye normal inspection, bilateral eye PERRL ENT: hearing grossly normal, normal pharynx, no angioedema, normal voice Neck: full range of motion, no bony tend, supple/symm/no masses, tender lateral Respiratory: chest non-tender, lungs clear, normal breath sounds, speaking full sentences Cardiovascular #1: regular rate, rhythm, no edema Cardiovascular #2: 2+ carotid (R), 2+ carotid (L), 2+ radial (R), 2+ radial (L) , 2+ dorsalis pedis (R), 2+ dorsalis pedis (L) Gastrointestinal: normal bowel sounds, non tender, soft, non-distended, no guarding, no rebound Rectal: deferred Genitourinary: normal inspection, no CVA tenderness Musculoskeletal: back normal, gait/station normal, normal range of motion, tender - tenderness to sole of foot. no guarding/no bruising/creptius Neurologic: alert, oriented x3, responsive, motor strength/tone normal, sensory intact, speech normal Psychiatric: judgement/insight normal, memory normal, mood/affect normal, no suicidal/homicidal ideation Reflexes: 3+ bicep (R), 3+ bicep (L), 3+ tricep (R), 3+ tricep (L), 3+ knee (R) , 3+ knee (L) Skin: normal color, no rash, warm/dry, well hydrated Lymphatic: no adenopathy Medical Decision Making Diagnostic Impression: Primary Impression: Neck strain Qualified Codes: S16.1XXA - Strain of muscle, fascia and tendon at neck level , initial encounter Additional Impression: Plantar fasciitis ER Course Hospital Course 52-year-old male presents to ED complaining of R foot pain no trauma Differential diagnoses include: Fracture, dislocation, sprain, contusion, bursitis Clinical course Patient placed on stretcher. After initial history, physical exam reveals an middle-aged male in no acute distress. There is some tenderness to the sole of the foot. No bruising or guarding. No crepitus. Low suspicion for acute bony injury. Symptoms consistent with plantar fasciitis. Patient also complaining of tenderness to the lateral aspect of the neck. No midline cervical tenderness. We'll treat with ice, NSAIDs. I will provide podiatry referral Diagnosis - neck strain, plantar fasciitis stable and discharged to home with prescription for Motrin, Robaxin. Followup with Podiatry. Return to ED if symptoms recur or worsen Last Vital Signs Date Time Temp Pulse Resp B/P (MAP) Pulse Ox O2 Delivery O2 Flow Rate FiO2 11/01/17 18:39 98.0 71 18 111/71 99 Room Air 98.1 Status: improved Disposition: HOME, SELF-CARE Condition: Stable Scripts Methocarbamol* (ROBAXIN-750*) 750 Mg Tablet 750 MG PO TID, #21 TAB 0 Refills Prov: Bautista Hahn MD 11/01/17 Acetaminophen* (TYLENOL EXTRA STRENGTH*) 500 Mg Tablet 500 MG ORAL Q8H PRN for Prn Headache/Temp > 101, #30 TAB 0 Refills Prov: Bautista Hahn MD 11/01/17 Referrals: [facility] ([facility]P) KASSIDY GOLDBERG M.D. Patient Instructions: Plantar Fasciitis With [facility] Bautista Hahn MD 14, 2018 07:40
== END 2017-11-01 18:39 | disposition home or self-care (01) ==
LOC: EMR 18:25
DX: M72.2 Plantar fascial fibromatosis (principal); S16.1XXA Strain of muscle, fascia and tendon at neck level, initial encounter; X58.XXXA Exposure to other specified factors, initial encounter; Y92.9 Unspecified place or not applicable; G89.29 Other chronic pain; E11.9 Type 2 diabetes mellitus without complications; I10 Essential (primary) hypertension; E78.00 Pure hypercholesterolemia, unspecified; Z88.0 Allergy status to penicillin
CPT/HCPCS: 99284

== ENCOUNTER 2017-12-22 17:42 | Emergency (ER) | payer MEDICAID ==
[~2017-12-22] VITALS: Ht 185.4 cm; Wt 76.2 kg
[~2017-12-22 17:42] MED LIST changes: +LANTUS SOL100 UNIT/1 SUBQ; +ROBAXIN-750750 MG PO; +TYLENOL EXTRA500 MG ORAL
[2017-12-22 17:54] VITALS: BP 124/85
[2017-12-22] MEDS ORDERED: Mylanta II UD 30ml ORAL ONE (18:15)
[2017-12-22] MEDS ORDERED: Lidocaine 2% Visc 15ml soln ORAL ONE (18:15)
[2017-12-22] MEDS ORDERED: Sodium Chloride 500ML 500 ML IV ONE (18:15)
[2017-12-22] MEDS ORDERED: Dicyclomine HCl 10mg/5ml oral soln ORAL ONE (18:15)
--- NOTE | 2017-12-22 18:26 | Emergency Room Report ---
History of Present Illness General Chief Complaint: Abdominal Pain Source: Patient Present Illness HPI 52-year-old male presents ED for evaluation. Patient complaining of abdominal pain with nausea times one day. Started this morning. Pain is epigastric, dull , 6 out of 10, nonradiating. Denies chest pain or shortness of breath. Notes nausea, denies vomiting. Denies any diarrhea. Denies sick contacts or recent travel. No other aggravating relieving factors. Denies any other associated symptoms Allergies: Coded Allergies: PENICILLINS (Unverified Allergy, Unknown, 04/01/14) Patient History Past Medical History: DM, HTN Past Surgical History: none Pertinent Family History: none Social History: Denies: smoking, alcohol use, drug use Immunizations: UTD Reviewed Nursing Documentation: PMH: Agreed; PSxH: Agreed Nursing Documentation-PMH Hx Cardiac Problems: Yes - High Cholesterol Hx Hypertension: Yes Hx Diabetes: Yes Hx Neurological Problems: Yes - Chronic Pain left-facial area Review of Systems All Other Systems: negative except mentioned in HPI Physical Exam Vital Signs Date Time Temp Pulse Resp B/P (MAP) Pulse Ox O2 Delivery O2 Flow Rate FiO2 12/22/17 17:49 98.1 88 18 124/85 98 Room Air 98.1 Sp02 EP Interpretation: reviewed, normal General Appearance: no apparent distress, alert, GCS 15, non-toxic Head: normocephalic, atraumatic Eyes: bilateral eye normal inspection, bilateral eye PERRL ENT: hearing grossly normal, normal pharynx, no angioedema, normal voice Neck: full range of motion, supple/symm/no masses Respiratory: chest non-tender, lungs clear, normal breath sounds, speaking full sentences Cardiovascular #1: regular rate, rhythm, no edema Cardiovascular #2: 2+ carotid (R), 2+ carotid (L), 2+ radial (R), 2+ radial (L) , 2+ dorsalis pedis (R), 2+ dorsalis pedis (L) Gastrointestinal: normal bowel sounds, non tender, soft, non-distended, no guarding, no rebound Rectal: deferred Genitourinary: normal inspection, no CVA tenderness Musculoskeletal: back normal, gait/station normal, normal range of motion, non- tender Neurologic: alert, oriented x3, responsive, motor strength/tone normal, sensory intact, speech normal Psychiatric: judgement/insight normal, memory normal, mood/affect normal, no suicidal/homicidal ideation Reflexes: 3+ bicep (R), 3+ bicep (L), 3+ tricep (R), 3+ tricep (L), 3+ knee (R) , 3+ knee (L) Skin: normal color, no rash, warm/dry, well hydrated Lymphatic: no adenopathy Medical Decision Making Diagnostic Impression: Primary Impression: Gastritis Qualified Codes: K29.00 - Acute gastritis without bleeding ER Course Hospital Course 52-year-old M presents to ED with epigastric pain with nausea differential diagnosis: gastritis, SBO, cholecystitis Clinical course Patient placed on stretcher. On monitor tech. After initial history and physical I ordered labs, IV fluids, Zofran and Zantac Labs - no leukocytosis, no electrolyte abnormalities, LFTs normal, trop negative EKG - NSR, no acute ischemic changes interpreted by me Upon reassessment, patient states pain has improved. findings consistent with gastritis. Patient safe for discharge with close outpatient follow-up I feel this is a highly complex case requiring extensive working including EKG/ Rhythm strip, Xray/CT/US, Blood/urine lab work, repeat exams while in ED, and administration of strong opiates/narcotics for pain control, admission to hospital or close patient follow up. Diagnosis - gastritis Stable and discharged to home with prescriptions for Zantac, zofran. Followup with PMD. Return to ED if symptoms recur or worsen Labs Test 12/22/17 18:00 White Blood Count 6.8 K/UL (4.8-10.8) Red Blood Count 4.94 M/UL (4.70-6.10) Hemoglobin 13.8 G/DL (14.2-18.0) Hematocrit 41.0 % (42.0-52.0) Mean Corpuscular Volume 83 FL (80-99) Mean Corpuscular Hemoglobin 27.9 PG (27.0-31.0) Mean Corpuscular Hemoglobin Concent 33.6 G/DL (32.0-36.0) Red Cell Distribution Width 12.2 % (11.6-14.8) Platelet Count 322 K/UL (150-450) Mean Platelet Volume 5.6 FL (6.5-10.1) Neutrophils (%) (Auto) 40.3 % (45.0-75.0) Lymphocytes (%) (Auto) 46.5 % (20.0-45.0) Monocytes (%) (Auto) 7.5 % (1.0-10.0) Eosinophils (%) (Auto) 2.6 % (0.0-3.0) Basophils (%) (Auto) 3.1 % (0.0-2.0) Urine Color Pale yellow Urine Appearance Clear Urine pH 5 (4.5-8.0) Urine Specific [place] 1.015 (1.005-1.035) Urine Protein 1+ (NEGATIVE) Urine Glucose (UA) Negative (NEGATIVE) Urine Ketones Negative (NEGATIVE) Urine Blood Negative (NEGATIVE) Urine Nitrite Negative (NEGATIVE) Urine Bilirubin Negative (NEGATIVE) Urine Urobilinogen Normal MG/DL (0.0-1.0) Urine Leukocyte Esterase Negative (NEGATIVE) Urine RBC 0 /HPF (0 - 0) Urine WBC 5-10 /HPF (0 - 0) Urine Squamous Epithelial Cells Occasional /LPF Urine Bacteria Few /HPF (NONE) Urine Mucus Few /LPF (NONE/OCC) Sodium Level 136 MMOL/L (136-145) Potassium Level 4.3 MMOL/L (3.5-5.1) Chloride Level 100 MMOL/L (98-107) Carbon Dioxide Level 27 MMOL/L (21-32) Anion Gap 10 mmol/L (5-15) Blood Urea Nitrogen 21 mg/dL (7-18) Creatinine 1.5 MG/DL (0.55-1.30) Estimat Glomerular Filtration Rate 59.1 mL/min (>60) Glucose Level 155 MG/DL (74-106) Calcium Level 10.1 MG/DL (8.5-10.1) Total Bilirubin 0.4 MG/DL (0.2-1.0) Aspartate Amino Transf (AST/SGOT) 13 U/L (15-37) Alanine Aminotransferase (ALT/SGPT) 17 U/L (12-78) Alkaline Phosphatase 99 U/L (46-116) Troponin I 0.000 ng/mL (0.000-0.056) Total Protein 8.8 G/DL (6.4-8.2) Albumin 4.4 G/DL (3.4-5.0) Globulin 4.4 g/dL Albumin/Globulin Ratio 1.0 (1.0-2.7) Lipase 317 U/L (73-393) EKG Diagnostic Results Rate: normal Rhythm: NSR ST Segments: no acute changes ASA given to the pt in ED: No Rhythm Strip Diag. Results EP Interpretation: yes Rhythm: NSR, no PVC's, no ectopy Last Vital Signs Date Time Temp Pulse Resp B/P (MAP) Pulse Ox O2 Delivery O2 Flow Rate FiO2 12/22/17 17:54 98.1 87 18 124/85 98 Room Air 98.1 Status: improved Disposition: HOME, SELF-CARE Condition: Stable Scripts Ondansetron Odt* (ZOFRAN ODT*) 4 Mg Tab.rapdis 4 MG BC EVERY 6 HOURS PRN for Nausea & Vomiting, #20 TAB 0 Refills Prov: Bautista Hahn MD 12/22/17 Ranitidine Hcl* (ZANTAC*) 150 Mg Tablet 150 MG ORAL TWICE A DAY, #30 TAB Prov: Bautista Hahn MD 12/22/17 Bautista Hahn MD Dec 22, 2017 18:26
[2017-12-22 18:32] LABS: APPEARANCE,URINE CLEAR; BILIRUBIN, URINE NEGATIVE (NEGATIVE); COLOR,URINE PALE YELLOW; GLUCOSE, URINE (UA) NEGATIVE (NEGATIVE); KETONES,URINE NEGATIVE (NEGATIVE); LEUKOCYTE ESTERASE ,URINE NEGATIVE (NEGATIVE); NITRITE,URINE NEGATIVE (NEGATIVE); PH,URINE 5 (4.5-8.0); PROTEIN,URINE 1+ (NEGATIVE); UROBILINOGEN,URINE NORMAL MG/DL (0.0-1.0)
[2017-12-22 18:33] LABS: BASOPHILS % (AUTO) 3.1 % (0.0-2.0); EOSINOPHILS % (AUTO) 2.6 % (0.0-3.0); HEMOGLOBIN 13.8 G/DL (14.2-18.0); LYMPHOCYTES % (AUTO) 46.5 % (20.0-45.0); MEAN CORPUSCULAR VOLUME 83 FL (80-99); MONOCYTES % (AUTO) 7.5 % (1.0-10.0); NEUTROPHILS % (AUTO) 40.3 % (45.0-75.0); PLATELET COUNT 322 K/UL (150-450); RED BLOOD COUNT 4.94 M/UL (4.70-6.10); RED CELL DISTRIBUTION WIDTH 12.2 % (11.6-14.8); WHITE BLOOD COUNT 6.8 K/UL (4.8-10.8)
[2017-12-22 18:41] LABS: ANION GAP 10 mmol/L (5-15); BLOOD UREA NITROGEN 21 mg/dL (7-18); CALCIUM 10.1 MG/DL (8.5-10.1); CARBON DIOXIDE 27 MMOL/L (21-32); CHLORIDE 100 MMOL/L (98-107); CREATININE 1.5 MG/DL (0.55-1.30); POTASSIUM 4.3 MMOL/L (3.5-5.1); SODIUM 136 MMOL/L (136-145)
[2017-12-22 18:45] LABS: ALANINE AMINOTRANSFERASE 17 U/L (12-78); ALBUMIN 4.4 G/DL (3.4-5.0); ALKALINE PHOSPHATASE 99 U/L (46-116); ASPARTATE AMINO TRANSFERASE 13 U/L (15-37); BILIRUBIN,TOTAL 0.4 MG/DL (0.2-1.0)
[2017-12-22] MEDS ORDERED: ONDANSETRON ODT4 MG BC (19:12)
[2017-12-22] MEDS ORDERED: RANITIDINE HCL150 MG ORAL (19:12)
[2017-12-22 19:17] VITALS: BP 101/69
--- NOTE | 2017-12-25 17:34 | Cardiology Report ---
APPROVED REPORT EKG Measurement Heart [id number] Normal sinus rhythm Normal ECG
== END 2017-12-22 19:15 | disposition home or self-care (01) ==
LOC: EMR 18:13
DX: K29.00 Acute gastritis without bleeding (principal); E11.9 Type 2 diabetes mellitus without complications; I10 Essential (primary) hypertension; E78.00 Pure hypercholesterolemia, unspecified; G89.29 Other chronic pain; R51 Headache
CPT/HCPCS: 36415; 80053; 81003; 83690; 84484; 85025; 93005; 96374; 96375; 99284; J2405; S0028

== ENCOUNTER 2018-03-17 20:08 | Emergency (ER) | payer MEDICAID ==
[~2018-03-17] VITALS: Ht 185.4 cm; Wt 77.1 kg
[~2018-03-17 20:08] MED LIST changes: +ONDANSETRON ODT4 MG BC; +RANITIDINE HCL150 MG ORAL
[2018-03-17 20:36] VITALS: BP 128/78
[2018-03-17] MEDS ORDERED: Acetaminophen 500mg (ES) tab ORAL ONE (20:45)
[2018-03-17] MEDS ORDERED: Isovue-300 100ml vial INJ PRN (20:45)
[2018-03-17] MEDS ORDERED: Morphine Sulfate 4mg/ml Inj (IV/IM USE ONLY) IVP ONE (20:45)
[2018-03-17 21:46] LABS: APPEARANCE,URINE CLEAR; BILIRUBIN, URINE NEGATIVE (NEGATIVE); COLOR,URINE AMBER; GLUCOSE, URINE (UA) NEGATIVE (NEGATIVE); KETONES,URINE NEGATIVE (NEGATIVE); LEUKOCYTE ESTERASE ,URINE NEGATIVE (NEGATIVE); NITRITE,URINE NEGATIVE (NEGATIVE); PH,URINE 5 (4.5-8.0); PROTEIN,URINE 2+ (NEGATIVE); UROBILINOGEN,URINE 4 MG/DL (0.0-1.0)
--- NOTE | 2018-03-17 21:47 | Emergency Room Report ---
History of Present Illness General Chief Complaint: Abdominal Pain Source: Patient Present Illness HPI Patient with several days of LLQ pain. Mostly constant. Able to move bowels. "Hot" occasionally, but no fever. No dysuria or hematuria. No vomiting. Some constipation. Denies prior colonoscopy. Never has had this pain in the past. Pain rated 7/10, aching pressure. No meds taken at home. Not radiating. Diabetic on both insulin and oral meds. States glucose has been well controlled. Allergies: Coded Allergies: PENICILLINS (Unverified Allergy, Unknown, 04/01/14) Patient History Past Medical History: see triage record Social History: Reports: smoking Social History Narrative drove himself here Reviewed Nursing Documentation: PMH: Agreed; PSxH: Agreed Nursing Documentation-PMH Hx Cardiac Problems: Yes - High Cholesterol Hx Hypertension: Yes Hx Diabetes: Yes Hx Neurological Problems: Yes - Chronic Pain left-facial area Review of Systems All Other Systems: negative except mentioned in HPI Physical Exam Vital Signs Date Time Temp Pulse Resp B/P (MAP) Pulse Ox O2 Delivery O2 Flow Rate FiO2 03/17/18 20:32 98.6 87 16 120/83 98 Room Air Sp02 EP Interpretation: reviewed, normal General Appearance: well appearing, no apparent distress, GCS 15 Head: normocephalic Eyes: bilateral eye normal inspection ENT: moist mucus membranes Neck: supple Respiratory: lungs clear, normal breath sounds Cardiovascular #1: regular rate, rhythm Cardiovascular #2: 2+ radial (R) Gastrointestinal: normal inspection, normal bowel sounds, no mass, non- distended, guarding - LLQ, tenderness Musculoskeletal: back normal, gait/station normal, normal range of motion Neurologic: alert, oriented x3, grossly normal Psychiatric: mood/affect normal Skin: normal inspection, warm/dry, other - pale nail beds Medical Decision Making Diagnostic Impression: Primary Impression: Abdominal pain Qualified Codes: R10.32 - Left lower quadrant pain Additional Impression: Hyperglycemia ER Course Diabetic patient presents with left lower quadrant pain 3 days. Differential includes muscle strain, UTI, renal stone, diverticulitis amongst others. Evaluation will be with EKG, labs and CT abdomen and pelvis. Patient retreated with IV hydration and analgesia. EKG with normal sinus rhythm rate 81 normal EKG. Labs with normal white count H &H. Blood sugar is elevated at 195. CT the abdomen is unremarkable. These findings were discussed with the patient. He was improved with treatment. The patient was stable for outpatient observation and treatment with close follow-up with his own physician. The patient understood this. Laboratory Tests Test 03/17/18 21:34 White Blood Count 6.5 K/UL (4.8-10.8) Red Blood Count 4.95 M/UL (4.70-6.10) Hemoglobin 13.4 G/DL (14.2-18.0) L Hematocrit 40.5 % (42.0-52.0) L Mean Corpuscular Volume 82 FL (80-99) Mean Corpuscular Hemoglobin 27.1 PG (27.0-31.0) Mean Corpuscular Hemoglobin Concent 33.1 G/DL (32.0-36.0) Red Cell Distribution Width 12.4 % (11.6-14.8) Platelet Count 338 K/UL (150-450) Mean Platelet Volume 5.8 FL (6.5-10.1) L Neutrophils (%) (Auto) 47.0 % (45.0-75.0) Lymphocytes (%) (Auto) 40.9 % (20.0-45.0) Monocytes (%) (Auto) 8.1 % (1.0-10.0) Eosinophils (%) (Auto) 2.8 % (0.0-3.0) Basophils (%) (Auto) 1.3 % (0.0-2.0) Prothrombin Time 10.9 SEC (9.30-11.50) Prothrombin Time INR 1.0 (0.9-1.1) PTT 29 SEC (23-33) Urine Color Liza Urine Appearance Clear Urine pH 5 (4.5-8.0) Urine Specific [place] 1.020 (1.005-1.035) Urine Protein 2+ (NEGATIVE) H Urine Glucose (UA) Negative (NEGATIVE) Urine Ketones Negative (NEGATIVE) Urine Blood Negative (NEGATIVE) Urine Nitrite Negative (NEGATIVE) Urine Bilirubin Negative (NEGATIVE) Urine Ictotest Negative (NEGATIVE) Urine Urobilinogen 4 MG/DL (0.0-1.0) H Urine Leukocyte Esterase Negative (NEGATIVE) Urine RBC 0-2 /HPF (0 - 0) H Urine WBC 0 /HPF (0 - 0) Urine Squamous Epithelial Cells Occasional /LPF Urine Bacteria None /HPF (NONE) Urine Mucus Moderate /LPF (NONE/OCC) H Sodium Level 138 MMOL/L (136-145) Potassium Level 4.3 MMOL/L (3.5-5.1) Chloride Level 101 MMOL/L (98-107) Carbon Dioxide Level 30 MMOL/L (21-32) Anion Gap 7 mmol/L (5-15) Blood Urea Nitrogen 15 mg/dL (7-18) Creatinine 1.3 MG/DL (0.55-1.30) Estimate Glomerular Filtration Rate > 60 mL/min (>60) Glucose Level 195 MG/DL (74-106) H Calcium Level 9.3 MG/DL (8.5-10.1) Total Bilirubin 0.3 MG/DL (0.2-1.0) Aspartate Amino Transferase (AST) 13 U/L (15-37) L Alanine Aminotransferase (ALT) 14 U/L (12-78) Alkaline Phosphatase 96 U/L (46-116) Troponin I 0.000 ng/mL (0.000-0.056) Total Protein 8.2 G/DL (6.4-8.2) Albumin 3.6 G/DL (3.4-5.0) Globulin 4.6 g/dL Albumin/Globulin Ratio 0.8 (1.0-2.7) L Lipase 229 U/L (73-393) Urine Opiates Screen Negative (NEGATIVE) Urine Barbiturates Screen Negative (NEGATIVE) Phencyclidine (PCP) Screen Negative (NEGATIVE) Urine Amphetamines Screen Negative (NEGATIVE) Urine Benzodiazepines Screen Negative (NEGATIVE) Urine Cocaine Screen Negative (NEGATIVE) Urine Marijuana (THC) Screen Negative (NEGATIVE) EKG Diagnostic Results Rate: normal Rhythm: NSR ST Segments: no acute changes Rhythm Strip Diag. Results Rhythm: NSR, no PVC's, no ectopy CT/MRI/US Diagnostic Results CT/MRI/US Diagnostic Results : Imaging Test Ordered: abd Impression neg Last Vital Signs Date Time Temp Pulse Resp B/P (MAP) Pulse Ox O2 Delivery O2 Flow Rate FiO2 03/18/18 01:21 98.6 82 17 125/73 98 Room Air Status: improved Disposition: HOME, SELF-CARE Condition: Improved Scripts Acetaminophen (Tylenol) 325 Mg Tablet 650 MG ORAL Q6H PRN for Prn Pain/Headache/Temp > 101, #20 TAB 0 Refills Prov: Mathieu Duran MD 03/18/18 Tramadol Hcl* (ULTRAM*) 50 Mg Tablet 50 MG ORAL Q6H PRN for For Pain, #8 TAB 0 Refills Prov: Mathieu Duran MD 03/18/18 Referrals: [facility] (PCP) Mathieu Duran MD Mar 17, 2018 21:47
[2018-03-17 21:48] LABS: BASOPHILS % (AUTO) 1.3 % (0.0-2.0); EOSINOPHILS % (AUTO) 2.8 % (0.0-3.0); HEMATOCRIT 40.5 % (42.0-52.0); HEMOGLOBIN 13.4 G/DL (14.2-18.0); LYMPHOCYTES % (AUTO) 40.9 % (20.0-45.0); MEAN CORPUSCULAR VOLUME 82 FL (80-99); MONOCYTES % (AUTO) 8.1 % (1.0-10.0); PLATELET COUNT 338 K/UL (150-450); RED BLOOD COUNT 4.95 M/UL (4.70-6.10); RED CELL DISTRIBUTION WIDTH 12.4 % (11.6-14.8); WHITE BLOOD COUNT 6.5 K/UL (4.8-10.8)
[2018-03-17 21:55] LABS: ANION GAP 7 mmol/L (5-15); BLOOD UREA NITROGEN 15 mg/dL (7-18); CALCIUM 9.3 MG/DL (8.5-10.1); CARBON DIOXIDE 30 MMOL/L (21-32); CHLORIDE 101 MMOL/L (98-107); CREATININE 1.3 MG/DL (0.55-1.30); POTASSIUM 4.3 MMOL/L (3.5-5.1); SODIUM 138 MMOL/L (136-145)
[2018-03-17 22:01] LABS: ALANINE AMINOTRANSFERASE 14 U/L (12-78); ALBUMIN 3.6 G/DL (3.4-5.0); ALBUMIN/GLOBULIN RATIO 0.8 (1.0-2.7); ALKALINE PHOSPHATASE 96 U/L (46-116); ASPARTATE AMINO TRANSFERASE 13 U/L (15-37); BILIRUBIN,TOTAL 0.3 MG/DL (0.2-1.0)
[2018-03-17] MEDS ORDERED: Omnipaque-300 100ml vial INJ ONE ×2 (22:34→22:57)
[2018-03-18] MEDS ORDERED: oxyCODONE HCL/Acetaminophen 5/325mg ORAL ONE (01:15)
[2018-03-18] MEDS ORDERED: TYLENOL325 MG ORAL (01:17)
[2018-03-18] MEDS ORDERED: TRAMADOL HCL50 MG ORAL (01:17)
[2018-03-18 01:21] VITALS: BP 125/73
--- NOTE | 2018-03-18 09:03 | Diagnostic Imaging Report ---
Clinical Indication: Abdominal pain Technique: Patient given oral contrast. IV administration nonionic contrast. Venous phase spiral acquisition obtained through the abdomen and pelvis. Multiplanar reconstructions were generated. Total dose length product 730.08 mGycm. CTDIvol(s) 13.21 mGy. Dose reduction achieved using automated exposure control Comparison: none Findings: The appendix is normal. No evidence of diverticulosis or diverticulitis. No small bowel distention. No free or loculated intraperitoneal gas or fluid is evident. The distal esophagus is unremarkable. The stomach contains a fair amount of residual food. The liver, gallbladder, bile ducts, pancreas, spleen, adrenals, left kidney are unremarkable. The right kidney demonstrates an upper pole cyst. No renal or ureteral calculi, hydronephrosis, or hydroureter. Unremarkable bladder. No pelvic mass or adenopathy. No retroperitoneal or mesenteric mass or adenopathy The lung bases demonstrate posterior dependent atelectatic changes. The bones are unremarkable. Impression: No acute or significant abnormality Posterior dependent pulmonary atelectatic changes Incidental finding small right renal cyst This agrees with the preliminary interpretation provided overnight by [facility]erad[facility] service. The CT scanner at [facility] is accredited by the [employer] and the scans are performed using protocols designed to limit radiation exposure to as low as reasonably achievable to attain images of sufficient resolution adequate for diagnostic evaluation.
--- NOTE | 2018-03-18 14:15 | Cardiology Report ---
APPROVED REPORT EKG Measurement Heart [id number] Normal sinus rhythm Normal ECG
== END 2018-03-18 01:21 | disposition home or self-care (01) ==
LOC: EMR 21:03
DX: E11.65 Type 2 diabetes mellitus with hyperglycemia (principal); R10.32 Left lower quadrant pain; I10 Essential (primary) hypertension; Z72.0 Tobacco use; Z79.4 Long term (current) use of insulin; Z79.84 Long term (current) use of oral hypoglycemic drugs; Z88.0 Allergy status to penicillin
CPT/HCPCS: 36415; 74177; 80053; 80307; 81003; 83690; 84484; 85025; 85610; 85730; 93005; 96361; 96374; 96375; 99284; J2270; J2405; Q9965; Q9966; Q9967

== ENCOUNTER 2018-06-02 19:33 | Emergency (ER) | payer MEDICAID ==
[~2018-06-02] VITALS: Ht 188 cm; Wt 79.4 kg
[~2018-06-02 19:33] MED LIST changes: +TYLENOL325 MG ORAL
--- NOTE | 2018-06-02 19:42 | Emergency Room Report ---
History of Present Illness General Chief Complaint: Abdominal Pain Source: Patient Present Illness HPI Patient present with complaints of left lower abdominal pain Reports of the started earlier today After eating oatmeal and after eating a meal later he felt of the area worsened There are some radiation to the left flank region Denies any dysuria frequency denies any vomiting or diarrhea Denies any chest pain denies any fall or trauma Allergies: Coded Allergies: PENICILLINS (Unverified Allergy, Unknown, 04/01/14) Patient History Past Medical History: see triage record Pertinent Family History: none Reviewed Nursing Documentation: PMH: Agreed; PSxH: Agreed Nursing Documentation-PMH Past Medical History: No History, Except For Hx Cardiac Problems: Yes - High Cholesterol Hx Hypertension: Yes Hx Diabetes: Yes Hx Neurological Problems: Yes - Chronic Pain left-facial area Review of Systems All Other Systems: negative except mentioned in HPI Physical Exam Vital Signs Date Time Temp Pulse Resp B/P (MAP) Pulse Ox O2 Delivery O2 Flow Rate FiO2 06/02/18 19:34 99.0 96 18 144/90 98 Room Air Sp02 EP Interpretation: reviewed, normal General Appearance: well appearing, no apparent distress Head: normocephalic, atraumatic Eyes: bilateral eye PERRL, bilateral eye EOMI ENT: hearing grossly normal, normal pharynx, TMs + canals normal, uvula midline Neck: full range of motion, supple, no meningismus, no bony tend Respiratory: lungs clear, normal breath sounds, no rhonchi, no respiratory distress, no retraction, no accessory muscle use Cardiovascular #1: normal peripheral pulses, regular rate, rhythm, no edema, no gallop, no JVD, no murmur Gastrointestinal: normal bowel sounds, non tender, soft, no mass, no organomegaly, non-distended, no guarding, no hernia, no pulsatile mass, no rebound Genitourinary: no CVA tenderness Musculoskeletal: normal inspection Neurologic: oriented x3, responsive, 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, motor strength/ tone normal, sensory intact Psychiatric: mood/affect normal Skin: normal color, no rash, warm/dry, palpation normal Lymphatic: normal inspection, no adenopathy Medical Decision Making Diagnostic Impression: Primary Impression: Abdominal pain ER Course With the history exam and presentation, multiple differentials considered, including but not limited to appendicitis, gastritis, cholecystitis, diverticulitis Patient's abdominal exam is soft and benign Patient has had fairly recent extensive workup with blood work and imaging Urine sample does not show any acute pathology He also reports that he has follow-up with upper endoscopy coming soon After intervention and reevaluation patient also feels significantly improved and will have initial conservative outpatient follow-up Labs Test 06/02/18 19:40 Urine Color Pale yellow Urine Appearance Clear Urine pH 5 (4.5-8.0) Urine Specific [place] 1.015 (1.005-1.035) Urine Protein 2+ (NEGATIVE) Urine Glucose (UA) Negative (NEGATIVE) Urine Ketones Negative (NEGATIVE) Urine Blood Negative (NEGATIVE) Urine Nitrite Negative (NEGATIVE) Urine Bilirubin Negative (NEGATIVE) Urine Urobilinogen Normal MG/DL (0.0-1.0) Urine Leukocyte Esterase Negative (NEGATIVE) Urine RBC 0-2 /HPF (0 - 0) Urine WBC 0-2 /HPF (0 - 0) Urine Squamous Epithelial Cells Occasional /LPF Urine Bacteria None /HPF (NONE) CT/MRI/US Diagnostic Results CT/MRI/US Diagnostic Results : Impression CT abdomen pelvis from February 2018Impression: No acute or significant abnormality Posterior dependent pulmonary atelectatic changes Incidental finding small right renal cyst Last Vital Signs Date Time Temp Pulse Resp B/P (MAP) Pulse Ox O2 Delivery O2 Flow Rate FiO2 06/02/18 19:34 99.0 96 18 144/90 98 Room Air Status: improved Disposition: HOME, SELF-CARE Condition: Improved Scripts Metoclopramide Hcl* (REGLAN*) 5 Mg Tablet 5 MG ORAL EVERY 12 HOURS, #12 TAB Prov: Channing Ivan DO 06/02/18 Additional Instructions: Patient is provided with the discharge instructions notified to follow up with primary doctor in the next 2-3 days otherwise return to the er with any worsening symptoms. Please note that this report is being documented using [employer] technology. This can lead to erroneous entry secondary to incorrect interpretation by the dictating instrument. Channing Ivan DO Jun 02, 2018 19:42
[2018-06-02 19:45] VITALS: BP 144/90
[2018-06-02] MEDS ORDERED: Dicyclomine HCl 10mg/5ml oral soln ORAL ONE (19:45)
--- NOTE | 2018-06-02 19:45 | NUR ---
ED Nurse Note: Patient walked into ED c/o of left lower abdominal pain that radiates to the upper abdomen 7/10 aching pain
[2018-06-02 19:59] LABS: BILIRUBIN, URINE NEGATIVE (NEGATIVE); COLOR,URINE PALE YELLOW; GLUCOSE, URINE (UA) NEGATIVE (NEGATIVE); KETONES,URINE NEGATIVE (NEGATIVE); LEUKOCYTE ESTERASE ,URINE NEGATIVE (NEGATIVE); NITRITE,URINE NEGATIVE (NEGATIVE); PH,URINE 5 (4.5-8.0); PROTEIN,URINE 2+ (NEGATIVE); UROBILINOGEN,URINE NORMAL MG/DL (0.0-1.0)
[2018-06-02 20:00] LABS: APPEARANCE,URINE CLEAR
[2018-06-02] MEDS ORDERED: REGLAN5 MG ORAL (20:50)
[2018-06-02 20:57] VITALS: BP 128/80
--- NOTE | 2018-06-02 20:57 | NUR ---
ED Nurse Note: pt is d/c per ermd order, pt is aox4, on room air, with stable vital signs. pt was given dc and prescription instructions, pt was able to verbalize understanding, pt id band. pt is able to ambulate with steady gait. pt took all belongings.
== END 2018-06-02 20:57 | disposition home or self-care (01) ==
LOC: EMR 20:05
DX: R10.32 Left lower quadrant pain (principal); I10 Essential (primary) hypertension; E11.9 Type 2 diabetes mellitus without complications; Z88.0 Allergy status to penicillin
CPT/HCPCS: 81003; 99283

== ENCOUNTER 2018-08-14 23:31 | Emergency (ER) | payer MEDICAID ==
[~2018-08-14] VITALS: Ht 185.4 cm; Wt 80.7 kg
[~2018-08-14 23:31] MED LIST changes: +REGLAN5 MG ORAL
--- NOTE | 2018-08-14 23:59 | Emergency Room Report ---
History of Present Illness General Chief Complaint: Dizziness Source: Patient Present Illness HPI Patient 52-year-old male presented after increased generalized weakness and dizziness. Patient reports having prior history of CVA and states that he been feeling weak and dizzy since Sunday. He reports having increased dizziness with movement and standing. He states he takes medications for diabetes as well as for hypertension. He reports having prior history of heart attack in the past. He states he has had previous small stroke.Reports current smoking. Allergies: Coded Allergies: CODEINE (Verified Allergy, Unknown, 08/14/18) PENICILLINS (Unverified Allergy, Unknown, 04/01/14) Patient History Past Medical History: see triage record Reviewed Nursing Documentation: PMH: Agreed; PSxH: Agreed Nursing Documentation-PMH Past Medical History: No History, Except For Hx Cardiac Problems: Yes - High Cholesterol Hx Hypertension: Yes Hx Diabetes: Yes Hx Neurological Problems: Yes - Chronic Pain left-facial area Review of Systems All Other Systems: negative except mentioned in HPI Physical Exam Vital Signs Date Time Temp Pulse Resp B/P (MAP) Pulse Ox O2 Delivery O2 Flow Rate FiO2 08/14/18 23:34 97.9 92 16 145/89 99 Room Air Sp02 EP Interpretation: reviewed, normal General Appearance: normal inspection, well appearing, no apparent distress, alert, GCS 15, non-toxic Head: atraumatic ENT: normal ENT inspection, hearing grossly normal, normal voice Neck: normal inspection, full range of motion, supple, no bony tend Respiratory: normal inspection, lungs clear, normal breath sounds, no respiratory distress, no retraction, no wheezing Cardiovascular #1: regular rate, rhythm, no edema Gastrointestinal: normal inspection, normal bowel sounds, non tender, soft, no guarding, no hernia Genitourinary: no CVA tenderness Musculoskeletal: normal inspection, back normal, normal range of motion Neurologic: normal inspection, alert, oriented x3, responsive, 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 Differential diagnosis included was not limited to anemia, urinary tract infection, electrolyte abnormality, hypothyroidism, myocardial infarction, myasthenia gravis, dehydration, among others. Laboratory testing was unremarkable. CT the head read by radiology showed no evidence of acute stroke. Patient was noted to have normal mental status without evident neurologic deficit. Patient was given IV fluids laboratory testing was unremarkable other than elevated blood sugar and mild elevation of the patient's creatinine compared to baseline. Patient appears to be stable for outpatient evaluation. He was advised to follow-up with his primary care physician for reevaluation. Labs Test 08/14/18 23:45 08/15/18 00:11 Urine Color Yellow Urine Appearance Clear Urine pH 6 (4.5-8.0) Urine Specific [place] 1.015 (1.005-1.035) Urine Protein Negative (NEGATIVE) Urine Glucose (UA) 3+ (NEGATIVE) Urine Ketones Negative (NEGATIVE) Urine Blood Negative (NEGATIVE) Urine Nitrite Negative (NEGATIVE) Urine Bilirubin Negative (NEGATIVE) Urine Ictotest Negative (NEGATIVE) Urine Urobilinogen 1 MG/DL (0.0-1.0) Urine Leukocyte Esterase Negative (NEGATIVE) Urine RBC 0-2 /HPF (0 - 0) Urine WBC 0-2 /HPF (0 - 0) Urine Squamous Epithelial Cells None /LPF (NONE/OCC) Urine Bacteria None /HPF (NONE) White Blood Count 7.0 K/UL (4.8-10.8) Red Blood Count 4.67 M/UL (4.70-6.10) Hemoglobin 13.1 G/DL (14.2-18.0) Hematocrit 38.0 % (42.0-52.0) Mean Corpuscular Volume 81 FL (80-99) Mean Corpuscular Hemoglobin 28.0 PG (27.0-31.0) Mean Corpuscular Hemoglobin Concent 34.3 G/DL (32.0-36.0) Red Cell Distribution Width 12.4 % (11.6-14.8) Platelet Count 323 K/UL (150-450) Mean Platelet Volume 6.2 FL (6.5-10.1) Neutrophils (%) (Auto) 39.6 % (45.0-75.0) Lymphocytes (%) (Auto) 50.7 % (20.0-45.0) Monocytes (%) (Auto) 5.3 % (1.0-10.0) Eosinophils (%) (Auto) 2.4 % (0.0-3.0) Basophils (%) (Auto) 2.0 % (0.0-2.0) Prothrombin Time 10.7 SEC (9.30-11.50) Prothromb Time International Ratio 1.0 (0.9-1.1) Activated Partial Thromboplast Time 27 SEC (23-33) Sodium Level 137 MMOL/L (136-145) Potassium Level 4.8 MMOL/L (3.5-5.1) Chloride Level 102 MMOL/L (98-107) Carbon Dioxide Level 26 MMOL/L (21-32) Anion Gap 9 mmol/L (5-15) Blood Urea Nitrogen 17 mg/dL (7-18) Creatinine 1.5 MG/DL (0.55-1.30) Estimat Glomerular Filtration Rate 59.1 mL/min (>60) Glucose Level 236 MG/DL (74-106) Calcium Level 8.9 MG/DL (8.5-10.1) Total Bilirubin 0.3 MG/DL (0.2-1.0) Aspartate Amino Transf (AST/SGOT) 22 U/L (15-37) Alanine Aminotransferase (ALT/SGPT) 20 U/L (12-78) Alkaline Phosphatase 92 U/L (46-116) Troponin I 0.000 ng/mL (0.000-0.056) Total Protein 7.4 G/DL (6.4-8.2) Albumin 3.6 G/DL (3.4-5.0) Globulin 3.8 g/dL Albumin/Globulin Ratio 0.9 (1.0-2.7) Thyroid Stimulating Hormone (TSH) 3.144 uiU/mL (0.358-3.740) EKG Diagnostic Results Rate: normal - 84 Rhythm: NSR ST Segments: no acute changes Last Vital Signs Date Time Temp Pulse Resp B/P (MAP) Pulse Ox O2 Delivery O2 Flow Rate FiO2 08/14/18 23:34 97.9 92 16 145/89 99 Room Air Status: improved Disposition: HOME, SELF-CARE Condition: Stable [facility]errals: [facility] (PCP) Shukri Taylor MD Aug 14, 2018 23:59
[2018-08-15 00:25] VITALS: BP 144/79
[2018-08-15 00:33] LABS: APPEARANCE,URINE CLEAR; BILIRUBIN, URINE NEGATIVE (NEGATIVE); GLUCOSE, URINE (UA) 3+ (NEGATIVE); KETONES,URINE NEGATIVE (NEGATIVE); LEUKOCYTE ESTERASE ,URINE NEGATIVE (NEGATIVE); NITRITE,URINE NEGATIVE (NEGATIVE); PH,URINE 6 (4.5-8.0); UROBILINOGEN,URINE 1 MG/DL (0.0-1.0)
[2018-08-15 00:35] LABS: EOSINOPHILS % (AUTO) 2.4 % (0.0-3.0); HEMOGLOBIN 13.1 G/DL (14.2-18.0); LYMPHOCYTES % (AUTO) 50.7 % (20.0-45.0); MEAN CORPUSCULAR VOLUME 81 FL (80-99); MONOCYTES % (AUTO) 5.3 % (1.0-10.0); NEUTROPHILS % (AUTO) 39.6 % (45.0-75.0); PLATELET COUNT 323 K/UL (150-450); RED BLOOD COUNT 4.67 M/UL (4.70-6.10); RED CELL DISTRIBUTION WIDTH 12.4 % (11.6-14.8)
[2018-08-15 00:47] LABS: ANION GAP 9 mmol/L (5-15); BLOOD UREA NITROGEN 17 mg/dL (7-18); CALCIUM 8.9 MG/DL (8.5-10.1); CARBON DIOXIDE 26 MMOL/L (21-32); CHLORIDE 102 MMOL/L (98-107); CREATININE 1.5 MG/DL (0.55-1.30); POTASSIUM 4.8 MMOL/L (3.5-5.1); SODIUM 137 MMOL/L (136-145)
[2018-08-15 00:50] LABS: PROTEIN,URINE NEGATIVE (NEGATIVE)
[2018-08-15 00:52] LABS: COLOR,URINE YELLOW
[2018-08-15 01:00] LABS: ALANINE AMINOTRANSFERASE 20 U/L (12-78); ALBUMIN 3.6 G/DL (3.4-5.0); ALBUMIN/GLOBULIN RATIO 0.9 (1.0-2.7); ALKALINE PHOSPHATASE 92 U/L (46-116); ASPARTATE AMINO TRANSFERASE 22 U/L (15-37); BILIRUBIN,TOTAL 0.3 MG/DL (0.2-1.0)
[2018-08-15 01:48] VITALS: BP 132/75
--- NOTE | 2018-08-15 09:47 | Diagnostic Imaging Report ---
Indications: Headache and dizziness for 2 days Technique: Spiral acquisitions obtained through the brain. Angled axial and coronal 5 x 5 mm slices were reconstructed. Total dose length product 1481.65 mGycm. CTDI vol(s) 70.38 mGy. Dose reduction achieved using automated exposure control Comparison: 07/29/2017 Findings: Again demonstrated is a sizable left anterior basal ganglia lacunar infarct with resultant ex vacuo dilatation of anterior body of the left lateral ventricle. There is minimal age-related enlargement of the ventricles and extra-axial CSF spaces, and mild periventricular deep white matter low-attenuation, consistent with chronic microvascular ischemic change. Normal hwang-white differentiation otherwise. No acute intracranial hemorrhage or edema, mass effect, nor midline shift. The calvarium is intact. The mastoids are clear. Visualized orbits and sinuses are unremarkable. Impression: Negative for acute intracranial bleed or mass effect Chronic and age-related changes, old left basal ganglia lacunar infarct, as described This agrees with the preliminary interpretation provided overnight by [facility] service. The CT scanner at [facility] is accredited by the [employer] and the scans are performed using protocols designed to limit radiation exposure to as low as reasonably achievable to attain images of sufficient resolution adequate for diagnostic evaluation.
--- NOTE | 2018-08-16 22:00 | Cardiology Report ---
APPROVED REPORT EKG Measurement Heart [id number] Normal sinus rhythm Normal ECG
== END 2018-08-15 01:49 | disposition home or self-care (01) ==
LOC: EMR 23:46
DX: E86.0 Dehydration (principal); R42 Dizziness and giddiness; R53.1 Weakness; I10 Essential (primary) hypertension; E11.9 Type 2 diabetes mellitus without complications; Z88.0 Allergy status to penicillin; Z88.5 Allergy status to narcotic agent; G89.29 Other chronic pain
CPT/HCPCS: 36415; 70450; 80053; 81001; 84443; 84484; 85025; 85610; 85730; 93005; 99284

== ENCOUNTER 2018-09-08 21:49 | Emergency (ER) | payer MEDICAID ==
[~2018-09-08] VITALS: Ht 182.9 cm; Wt 76.2 kg
--- NOTE | 2018-09-08 22:10 | Emergency Room Report ---
History of Present Illness General Chief Complaint: Abdominal Pain Source: Patient Present Illness [facility] This is a 52-year-old male with history of high blood pressure and diabetes. He presents with chief complaint of abdominal pain. Has been on and off for the last couple days. Denies any fever. Worse with eating. No vomiting or diarrhea. No trauma. Pain is sharp and crampy in nature. 8 out of 10. Also complaining of unexplained weight loss for the last month. Said he lost about 10 pounds. This because he get full very quickly. Allergies: Coded Allergies: CODEINE (Verified Allergy, Unknown, 08/14/18) PENICILLINS (Unverified Allergy, Unknown, 04/01/14) Patient History Past Medical History: see triage record, old chart reviewed, DM, HTN Past Surgical History: other Pertinent Family History: none Social History: Denies: smoking Immunizations: other Reviewed Nursing Documentation: PMH: Agreed; PSxH: Agreed Nursing Documentation-PMH Past Medical History: No History, Except For Hx Cardiac Problems: Yes - High Cholesterol Hx Hypertension: Yes Hx Diabetes: Yes Hx Neurological Problems: Yes - Chronic Pain left-facial area Review of Systems Eye: Denies: eye pain, blurred vision ENT: Denies: ear pain, nose congestion, throat swelling Respiratory: Denies: cough, shortness of breath Cardiovascular: Denies: chest pain, palpitations Gastrointestinal: Reports: abdominal pain; Denies: diarrhea, nausea, vomiting Musculoskeletal: Denies: back pain, joint pain Skin: Denies: rash Neurological: Denies: headache, numbness Endocrine: Denies: increased thirst, increased urine Hematologic/Lymphatic: Denies: easy bruising All Other Systems: negative except mentioned in HPI Physical Exam Vital Signs Date Time Temp Pulse Resp B/P (MAP) Pulse Ox O2 Delivery O2 Flow Rate FiO2 09/08/18 21:56 98.2 88 16 99 Room Air Sp02 EP Interpretation: reviewed, normal General Appearance: well appearing, no apparent distress, alert Head: normocephalic, atraumatic Eyes: bilateral eye PERRL, bilateral eye EOMI ENT: hearing grossly normal, normal pharynx Neck: full range of motion, supple, no meningismus Respiratory: chest non-tender, lungs clear, normal breath sounds Cardiovascular #1: regular rate, rhythm, no murmur Gastrointestinal: normal bowel sounds, no mass, no organomegaly, no bruit, non- distended, tenderness - epigastric Musculoskeletal: back normal, gait/station normal, normal range of motion Psychiatric: mood/affect normal Skin: warm/dry Medical Decision Making Diagnostic Impression: Primary Impression: Abdominal pain Qualified Codes: R10.13 - Epigastric pain ER Course Patient with epigastric pain. No evidence of any acute abdomen or obstruction. Most likely gastritis. Recommend continuing endoscopy and/or colonoscopy. Lab Results Impression labs unremarkable CT/MRI/US Diagnostic Results CT/MRI/US Diagnostic Results : Imaging Test Ordered: CT abdomen and pelvis Impression negative per radiologist Last Vital Signs Date Time Temp Pulse Resp B/P (MAP) Pulse Ox O2 Delivery O2 Flow Rate FiO2 09/08/18 21:56 98.2 88 16 99 Room Air Status: improved Disposition: HOME, SELF-CARE Condition: Stable Scripts Omeprazole Magnesium (PRILOSEC OTC) 20 Mg Tablet. 20 MG ORAL DAILY, #30 TAB Prov: Akhil Kuhn MD 09/08/18 Patient Instructions: Abdominal Pain, Adult Additional Instructions: Follow-up your doctor in 7 days. Recommend outpatient endoscopy and/or colonoscopy. Return if worse. Akhil Kuhn MD September 08, 2018 22:10
[2018-09-08] MEDS ORDERED: Mylanta II UD 30ml ORAL ONE (22:15)
[2018-09-08] MEDS ORDERED: Lidocaine 2% Visc 15ml soln ORAL ONE (22:15)
[2018-09-08] MEDS ORDERED: Pantoprazole Inj IV ONE (22:15)
[2018-09-08 22:20] VITALS: BP 139/87
--- NOTE | 2018-09-08 22:20 | NUR ---
ER Nurse Note: Pt came from home c/o abd pain for one week. Pt stated 6/10 sharp pain in generilized abd. Per pt, pt stated he lost about 10 pounds in the past month without trying. No trauma to the abd, no abnormal ingestion. Pt denies n/v/d. ERMD at pt side; will continue to [facility].
[2018-09-08 22:35] LABS: APPEARANCE,URINE CLEAR; BILIRUBIN, URINE NEGATIVE (NEGATIVE); COLOR,URINE PALE YELLOW; GLUCOSE, URINE (UA) 3+ (NEGATIVE); KETONES,URINE NEGATIVE (NEGATIVE); LEUKOCYTE ESTERASE ,URINE NEGATIVE (NEGATIVE); NITRITE,URINE NEGATIVE (NEGATIVE); PH,URINE 5 (4.5-8.0); PROTEIN,URINE 2+ (NEGATIVE); UROBILINOGEN,URINE NORMAL MG/DL (0.0-1.0)
[2018-09-08 22:35] LABS: BASOPHILS % (AUTO) 1.4 % (0.0-2.0); EOSINOPHILS % (AUTO) 2.3 % (0.0-3.0); HEMATOCRIT 35.5 % (42.0-52.0); HEMOGLOBIN 12.2 G/DL (14.2-18.0); LYMPHOCYTES % (AUTO) 46.6 % (20.0-45.0); MEAN CORPUSCULAR VOLUME 79 FL (80-99); MONOCYTES % (AUTO) 9.2 % (1.0-10.0); NEUTROPHILS % (AUTO) 40.5 % (45.0-75.0); PLATELET COUNT 317 K/UL (150-450); RED BLOOD COUNT 4.47 M/UL (4.70-6.10); RED CELL DISTRIBUTION WIDTH 12.3 % (11.6-14.8); WHITE BLOOD COUNT 7.1 K/UL (4.8-10.8)
--- NOTE | 2018-09-08 22:46 | NUR ---
ER Nurse Note: All orders completed per ERMD orders. Pt at radiology; awaiting scan and results.
[2018-09-08 22:48] LABS: ANION GAP 11 mmol/L (5-15); BLOOD UREA NITROGEN 19 mg/dL (7-18); CALCIUM 9.8 MG/DL (8.5-10.1); CARBON DIOXIDE 24 MMOL/L (21-32); CHLORIDE 103 MMOL/L (98-107); CREATININE 1.4 MG/DL (0.55-1.30); POTASSIUM 4.1 MMOL/L (3.5-5.1); SODIUM 138 MMOL/L (136-145)
[2018-09-08 22:52] LABS: ALANINE AMINOTRANSFERASE 18 U/L (12-78); ALBUMIN/GLOBULIN RATIO 1.1 (1.0-2.7); ALKALINE PHOSPHATASE 86 U/L (46-116); ASPARTATE AMINO TRANSFERASE 13 U/L (15-37); BILIRUBIN,TOTAL 0.2 MG/DL (0.2-1.0)
[2018-09-08] MEDS ORDERED: PRILOSEC OTC20 MG ORAL (23:42)
[2018-09-08 23:50] VITALS: BP 134/84
--- NOTE | 2018-09-08 23:52 | NUR ---
ER Nurse Note: All orders completed per ERMD orders. Pt seen, treated, medically cleared for discharge by ERMD. Discharge instructions and prescriptions given with repeat verbazliaion by pt. Instructed pt to follow up with primary care provider within one week. Pt a&ox4, VSS, no signs of distress. ID band removed. IV removed; site clean and bandaged. Pt left with all belongings with steady gait via own transportation.
--- NOTE | 2018-09-09 09:56 | Diagnostic Imaging Report ---
Indication: Abdominal pain Technique: Continuous helical transaxial imaging of the abdomen and pelvis was obtained from the lung bases to the pubic symphysis. No intravenous contrast was administered. Coronal 2-D reformats were also obtained. Automatic Exposure Control was utilized. Total Dose length Product (DLP): 669.[address] Dose Index Volume (CTDIvol): 12 mGy Comparison: none Findings: Minimal reticular densities at the lung bases posteriorly likely atelectasis. Small hypodensity in the upper pole the right kidney is probably cystic but not adequately evaluated. The appendix is normal with intraluminal air. Bowel gas pattern is nonobstructive. There may be mild thickening of the wall the urinary bladder. Correlate for cystitis. There is no free fluid or free air. Minimal calcification of aorta noted. No nephrolithiasis identified. IMPRESSION: Mild thickening of the urinary bladder wall suspected. Correlate for cystitis. Mild atherosclerotic vascular disease. Mild posterior basal atelectasis. [facility] has communicated the preliminary results to the Emergency Department. Their findings are largely concordant with this report. The CT scanner at [facility] is accredited by the [employer] and the scans are performed using dose optimization techniques as appropriate to a performed exam including Automatic Exposure control.
== END 2018-09-08 23:50 | disposition home or self-care (01) ==
LOC: EMR 22:22
DX: R10.13 Epigastric pain (principal); E11.9 Type 2 diabetes mellitus without complications; I10 Essential (primary) hypertension; Z88.6 Allergy status to analgesic agent; Z88.0 Allergy status to penicillin; E78.00 Pure hypercholesterolemia, unspecified; R63.4 Abnormal weight loss; Z68.22 Body mass index [BMI] 22.0-22.9, adult
CPT/HCPCS: 36415; 74176; 80053; 81003; 83690; 85025; 96361; 96374; 99284; C9113

== ENCOUNTER 2018-10-15 03:55 | Emergency (ER) | payer MEDICAID ==
[~2018-10-15] VITALS: Ht 185.4 cm; Wt 76.2 kg
[~2018-10-15 03:55] MED LIST changes: +PRILOSEC OTC20 MG ORAL
--- NOTE | 2018-10-15 04:08 | NUR ---
ED Nurse Note: Pt ambulated to ED from home c/o chest pain 5/10 radiating to left arm starting around 0200 this morning. Pt is A&Ox4
[2018-10-15 04:18] VITALS: BP 143/96
[2018-10-15] MEDS ORDERED: Aspirin Baby 81mg ORAL ONE (04:30)
--- NOTE | 2018-10-15 04:30 | Emergency Room Report ---
History of Present Illness General Chief Complaint: Chest Pain Source: Patient Present Illness [facility] This is a 53-year-old male with history diabetes high blood pressure. He resents with chief complaint of chest pain. He said he was sleeping he woke up with diffuse pain on his chest and left side. Radiates to his neck and down his leg. Denies any fever chills but denies any nausea or vomiting. Similar pain last week but went away after couple hours. He still having pain now. Now is been going on for 2 hours. Initially was sharp. But now achy. No fever chills. No diaphoresis. No exertional component. No shortness of breath. Allergies: Coded Allergies: CODEINE (Verified Allergy, Unknown, 08/14/18) PENICILLINS (Unverified Allergy, Unknown, 04/01/14) Patient History Past Medical History: see triage record, old chart reviewed, DM, HTN Past Surgical History: none Pertinent Family History: none Social History: Reports: smoking Immunizations: other Reviewed Nursing Documentation: PMH: Agreed; PSxH: Agreed Nursing Documentation-PMH Hx Cardiac Problems: Yes - H/O OF HEART ATTACK Hx Hypertension: Yes Hx Diabetes: Yes Hx Neurological Problems: Yes - Chronic Pain left-facial area Review of Systems Eye: Denies: eye pain, blurred vision ENT: Denies: ear pain, nose congestion, throat swelling Respiratory: Denies: cough, shortness of breath Cardiovascular: Reports: chest pain; Denies: palpitations Gastrointestinal: Denies: abdominal pain, diarrhea, nausea, vomiting Musculoskeletal: Denies: back pain, joint pain Skin: Denies: rash Neurological: Denies: headache, numbness Endocrine: Denies: increased thirst, increased urine Hematologic/Lymphatic: Denies: easy bruising All Other Systems: negative except mentioned in HPI Physical Exam Vital Signs Date Time Temp Pulse Resp B/P (MAP) Pulse Ox O2 Delivery O2 Flow Rate FiO2 10/15/18 03:56 97.9 91 16 143/96 (112) 97 Room Air Vitals with high blood pressure Sp02 EP Interpretation: reviewed, normal General Appearance: well appearing, no apparent distress, alert Head: normocephalic, atraumatic Eyes: bilateral eye PERRL, bilateral eye EOMI ENT: hearing grossly normal, normal pharynx Neck: full range of motion, supple, no meningismus Respiratory: chest non-tender, lungs clear, normal breath sounds Cardiovascular #1: regular rate, rhythm, no murmur Gastrointestinal: normal bowel sounds, non tender, no mass, no organomegaly, no bruit, non-distended Musculoskeletal: back normal, gait/station normal, normal range of motion Psychiatric: mood/affect normal Skin: warm/dry Medical Decision Making Diagnostic Impression: Primary Impression: Chest pain Qualified Codes: R07.9 - Chest pain, unspecified ER Course Patient presents with chest pain. He does have risk factor of hypertension, diabetes, family history and smoker. Because of this, will admit versus transfer for further work-up and chest pain rule out. I discussed the case with Dr. Lebron who accepted pt for transfer to [facility]. EKG Diagnostic Results Rate: normal Rhythm: NSR ST Segments: no acute changes ASA given to the pt in ED: Yes Rhythm Strip Diag. Results EP Interpretation: yes Rate: 79 Rhythm: NSR, no PVC's, no ectopy Chest X-Ray Diagnostic Results Chest X-Ray Diagnostic Results : Chest X-Ray Ordered: Yes # of Views/Limited/Complete: 1 View Indication: Chest Pain EP Interpretation: Yes Interpretation: no consolidation, no effusion, no pneumothorax, no acute cardiopulmonary disease Impression: No acute disease Electronically Signed by: Akhil Kuhn MD Last Vital Signs Date Time Temp Pulse Resp B/P (MAP) Pulse Ox O2 Delivery O2 Flow Rate FiO2 10/15/18 04:18 91 16 Room Air 10/15/18 04:18 97.9 143/96 97 Status: improved Disposition: XFER [facility] Condition: Stable Akhil Kuhn MD Oct 15, 2018 04:30
[2018-10-15 04:51] LABS: APPEARANCE,URINE CLEAR; BILIRUBIN, URINE NEGATIVE (NEGATIVE); COLOR,URINE PALE YELLOW; EOSINOPHILS % (AUTO) 2.4 % (0.0-3.0); GLUCOSE, URINE (UA) NEGATIVE (NEGATIVE); HEMATOCRIT 36.6 % (42.0-52.0); HEMOGLOBIN 12.3 G/DL (14.2-18.0); KETONES,URINE NEGATIVE (NEGATIVE); LEUKOCYTE ESTERASE ,URINE NEGATIVE (NEGATIVE); LYMPHOCYTES % (AUTO) 42.3 % (20.0-45.0); MEAN CORPUSCULAR VOLUME 82 FL (80-99); NEUTROPHILS % (AUTO) 44.3 % (45.0-75.0); NITRITE,URINE NEGATIVE (NEGATIVE); PH,URINE 5 (4.5-8.0); PLATELET COUNT 300 K/UL (150-450); RED BLOOD COUNT 4.46 M/UL (4.70-6.10); RED CELL DISTRIBUTION WIDTH 12.8 % (11.6-14.8); UROBILINOGEN,URINE NORMAL MG/DL (0.0-1.0); WHITE BLOOD COUNT 6.7 K/UL (4.8-10.8)
[2018-10-15 04:55] LABS: PROTEIN,URINE NEGATIVE (NEGATIVE)
[2018-10-15 05:02] LABS: ANION GAP 10 mmol/L (5-15); BLOOD UREA NITROGEN 21 mg/dL (7-18); CALCIUM 9.3 MG/DL (8.5-10.1); CARBON DIOXIDE 26 MMOL/L (21-32); CHLORIDE 105 MMOL/L (98-107); CREATININE 1.5 MG/DL (0.55-1.30); POTASSIUM 4.2 MMOL/L (3.5-5.1); SODIUM 141 MMOL/L (136-145)
[2018-10-15 05:17] LABS: ALANINE AMINOTRANSFERASE 19 U/L (12-78); ALBUMIN 3.6 G/DL (3.4-5.0); ALBUMIN/GLOBULIN RATIO 0.9 (1.0-2.7); ALKALINE PHOSPHATASE 97 U/L (46-116); ASPARTATE AMINO TRANSFERASE 10 U/L (15-37); BILIRUBIN,TOTAL 0.2 MG/DL (0.2-1.0); CKMB 1.1 NG/ML (0.0-3.6); CREATINE KINASE 175 U/L (26-308)
[2018-10-15 06:00] VITALS: BP 135/92
--- NOTE | 2018-10-15 06:00 | NUR ---
ED Nurse Note: Pt resting in bed semi fowlers with eyes closed, non-labored breathing. PT awakens to name. No further orders at this time, awaiting transport to [facility] [place] [id number]
--- NOTE | 2018-10-15 07:10 | NUR ---
HAND-OFF: Report given to Arnav.
--- NOTE | 2018-10-15 07:15 | NUR ---
ED Nurse Note: PT RESTING ON BED WITH NO ACUTE DISTRESS AT THIS TIME. VSS. WAITING FOR TRANSPORT TEAM.
--- NOTE | 2018-10-15 07:23 | NUR ---
Manda guillermo in EDM - 10/15/18 at 0725 by ROSHAN ED Note: REPOR GIVEN TO KOBY LAZO OF [facility].
--- NOTE | 2018-10-15 07:24 | NUR ---
ED Nurse Note: REPORT GIVEN TO KOBY LAZO OF [facility].
[2018-10-15 07:54] VITALS: BP 136/89
--- NOTE | 2018-10-15 07:54 | NUR ---
ED Nurse Note: REPORT GIVEN TO [id number] AND PT TRANSFERRED SELMA GOMEZ. VSS. ALL BELONGINGS SENT WITH PT.
--- NOTE | 2018-10-15 12:31 | Diagnostic Imaging Report ---
Indication: Chest pain Comparison: 07/29/2017 A single view chest radiograph was obtained. Findings: Cardiomediastinal appearance is within normal limits for age. The lungs are clear. Pulmonary vascularity is appropriate. The diaphragmatic contour is smooth and costophrenic angles are sharp. No pleural effusions are identified. The bones are unremarkable. Impression: No acute findings
== END 2018-10-15 07:54 | disposition short-term general hospital (02) ==
LOC: EMR 04:28 → EDBEDREQ 05:17 → EMR 07:54
DX: R07.9 Chest pain, unspecified (principal); Z88.0 Allergy status to penicillin; Z88.6 Allergy status to analgesic agent; I25.2 Old myocardial infarction; I10 Essential (primary) hypertension; E11.9 Type 2 diabetes mellitus without complications; F17.200 Nicotine dependence, unspecified, uncomplicated
CPT/HCPCS: 36415; 71045; 80053; 80307; 81003; 82550; 82553; 84484; 85025; 93005; 96360; 99284

== ENCOUNTER 2018-10-23 17:18 | Emergency (ER) | payer MEDICAID ==
[~2018-10-23] VITALS: Ht 185.4 cm; Wt 74.8 kg
--- NOTE | 2018-10-23 17:36 | NUR ---
ED Nurse Note: PT FROM HOME CAME IN DUE TO LEFT SIDE ABD PAIN AND FEELING OF FULLNESS X 2 DAYS. PER PT, HE WAS SEEN HERE AT [facility] LAST WEEK FOR THE SAME SYMPTOM AND WAS PRESCRIBED WITH A MUSCLE RELAXER AND STATES IT DID NOT HELP. AAO X4, AMBULATORY WITH NON LABORED BREATHING. VSS.
[2018-10-23 18:03] VITALS: BP 136/91
--- NOTE | 2018-10-23 18:27 | NUR ---
ED Nurse Note: BLOOD SPECIMEN SENT.
[2018-10-23 18:36] LABS: BASOPHILS % (AUTO) 1.9 % (0.0-2.0); EOSINOPHILS % (AUTO) 4.6 % (0.0-3.0); HEMATOCRIT 39.1 % (42.0-52.0); HEMOGLOBIN 12.5 G/DL (14.2-18.0); LYMPHOCYTES % (AUTO) 43.3 % (20.0-45.0); MEAN CORPUSCULAR VOLUME 84 FL (80-99); MONOCYTES % (AUTO) 10.5 % (1.0-10.0); NEUTROPHILS % (AUTO) 39.7 % (45.0-75.0); PLATELET COUNT 304 K/UL (150-450); RED BLOOD COUNT 4.64 M/UL (4.70-6.10); WHITE BLOOD COUNT 5.8 K/UL (4.8-10.8)
--- NOTE | 2018-10-23 18:53 | Diagnostic Imaging Report ---
EXAM: XR Abdomen, 2 Views CLINICAL HISTORY: CP TECHNIQUE: Frontal view of the abdomen/pelvis with upright view of the abdomen. COMPARISON: Chest radiograph same date same time. FINDINGS: Intraperitoneal space: No free air. Gastrointestinal tract: Nonobstructive bowel gas pattern. Large colonic stool burden, which could be a cause for pain. Bones/joints: Unremarkable. IMPRESSION: 1. Nonobstructive bowel gas pattern. 2. No clearly acute abnormality. 3. Large colonic stool burden, which could be a cause for pain. 4. If there is continued concern, recommend CT.
--- NOTE | 2018-10-23 18:54 | Diagnostic Imaging Report ---
EXAM: XR Chest, 1 View CLINICAL HISTORY: CP TECHNIQUE: Frontal view of the chest. COMPARISON: 10/15/18 FINDINGS: Lungs: Unremarkable. No consolidation. Pleural space: Unremarkable. No pneumothorax. Heart: Unremarkable. No cardiomegaly. Mediastinum: Unremarkable. Bones/joints: Unremarkable. IMPRESSION: 1. No acute cardio pulmonary disease. 2. If there is continued concern, recommend PA and lateral chest radiographs.
[2018-10-23 19:01] LABS: ANION GAP 10 mmol/L (5-15); BLOOD UREA NITROGEN 12 mg/dL (7-18); CALCIUM 9.8 MG/DL (8.5-10.1); CARBON DIOXIDE 26 MMOL/L (21-32); CHLORIDE 104 MMOL/L (98-107); CREATININE 1.4 MG/DL (0.55-1.30); POTASSIUM 4.2 MMOL/L (3.5-5.1); SODIUM 140 MMOL/L (136-145)
--- NOTE | 2018-10-23 19:06 | NUR ---
HAND-OFF: Report given to hayden chapa.
[2018-10-23 19:17] LABS: ALANINE AMINOTRANSFERASE 20 U/L (12-78); ALBUMIN 3.9 G/DL (3.4-5.0); ALKALINE PHOSPHATASE 99 U/L (46-116); ASPARTATE AMINO TRANSFERASE 14 U/L (15-37); BILIRUBIN,TOTAL 0.3 MG/DL (0.2-1.0); CKMB 1.2 NG/ML (0.0-3.6); CREATINE KINASE 195 U/L (26-308)
[2018-10-23] MEDS ORDERED: MAGNESIUM CITR296 M1 PO (19:28)
[2018-10-23] MEDS ORDERED: RANITIDINE HCL150 MG ORAL (19:28)
[2018-10-23] MEDS ORDERED: COLACE100 MG ORAL (19:28)
[2018-10-23 19:40] VITALS: BP 120/84
--- NOTE | 2018-10-23 21:44 | Emergency Room Report ---
History of Present Illness General Chief Complaint: Abdominal Pain Source: Patient Present Illness HPI 53-year-old male presents ED for evaluation. Patient is here complaining of left-sided abdominal pain which radiates to his chest. Started 2 days ago. States whenever he eats he feels full. Pain is dull, 6 out of 10. Denies shortness of breath. States he was seen here in August for abdominal pain and in September for chest pain. States he is scheduled to see a GI next week but was having symptoms today so he came to the ED. No other aggravating or relieving factors. Denies any other associated symptoms Allergies: Coded Allergies: CODEINE (Verified Allergy, Unknown, 08/14/18) PENICILLINS (Unverified Allergy, Unknown, 04/01/14) Patient History Past Medical History: DM, HTN Past Surgical History: none Pertinent Family History: none Social History: Denies: smoking, alcohol use, drug use Immunizations: UTD Reviewed Nursing Documentation: PMH: Agreed; PSxH: Agreed Nursing Documentation-PMH Hx Cardiac Problems: Yes - H/O OF HEART ATTACK Hx Hypertension: Yes Hx Diabetes: Yes Hx Neurological Problems: Yes - Chronic Pain left-facial area Review of Systems All Other Systems: negative except mentioned in HPI Physical Exam Vital Signs Date Time Temp Pulse Resp B/P (MAP) Pulse Ox O2 Delivery O2 Flow Rate FiO2 10/23/18 17:26 98.4 89 16 132/93 (106) 100 Room Air Sp02 EP Interpretation: reviewed, normal General Appearance: no apparent distress, alert, GCS 15, non-toxic Head: normocephalic, atraumatic Eyes: bilateral eye normal inspection, bilateral eye PERRL ENT: hearing grossly normal, normal pharynx, no angioedema, normal voice Neck: full range of motion, supple/symm/no masses Respiratory: chest non-tender, lungs clear, normal breath sounds, speaking full sentences Cardiovascular #1: regular rate, rhythm, no edema Cardiovascular #2: 2+ carotid (R), 2+ carotid (L), 2+ radial (R), 2+ radial (L) , 2+ dorsalis pedis (R), 2+ dorsalis pedis (L) Gastrointestinal: normal bowel sounds, soft, non-distended, no guarding, no rebound, tenderness - L sided Rectal: deferred Genitourinary: normal inspection, no CVA tenderness Musculoskeletal: back normal, gait/station normal, normal range of motion, non- tender Neurologic: alert, oriented x3, responsive, motor strength/tone normal, sensory intact, speech normal Psychiatric: judgement/insight normal, memory normal, mood/affect normal, no suicidal/homicidal ideation Reflexes: 3+ bicep (R), 3+ bicep (L), 3+ tricep (R), 3+ tricep (L), 3+ knee (R) , 3+ knee (L) Lymphatic: no adenopathy Medical Decision Making Diagnostic Impression: Primary Impression: Constipation Qualified Codes: K59.00 - Constipation, unspecified ER Course Hospital Course 53-year-old M presents to ED with abdominal pain + chest pain Differential diagnosis includes-appendicitis, cholecystitis, small bowel obstruction, gastritis, Clinical course Patient placed on stretcher. After initial history and physical I ordered labs , EKG, CXR and KUB I reviewed EMR. Patient was seen here in August for abdominal pain. Had CT which was noted to be negative. Was seen here in September for chest pain. Was subsequently admitted for chest pain and transferred to another hospital. Patient was kept overnight and subsequently discharged Labs - no leukocytosis, electrolytes ok, LFTs normal, trop negative EKG - NSR, no acute ischemic changes interpreted by me CXR - no acute process KUB - copious stool noted I reviewed CT from August visit. Read as negative by radiology however there appears to be significant fecal impaction on that CT. Similar to fecal impaction on KUB today. I believe this is patient's because of pain. I discussed this with the patient. We will discharge with stool softeners and Zantac. Patient states he has appointment with GI next week I feel this is a highly complex case requiring extensive working including EKG/ Rhythm strip, Xray/CT/US, Blood/urine lab work, repeat exams while in ED, and administration of strong opiates/narcotics for pain control, admission to hospital or close patient follow up. Diagnosis - constipation Stable and discharged to home with Rx Mag citrate, Colace, zantac. instructed on high-fiber diet. Followup with PMD/GI. Return to ED if symptoms recur or worsen Labs Test 10/23/18 18:20 White Blood Count 5.8 K/UL (4.8-10.8) Red Blood Count 4.64 M/UL (4.70-6.10) Hemoglobin 12.5 G/DL (14.2-18.0) Hematocrit 39.1 % (42.0-52.0) Mean Corpuscular Volume 84 FL (80-99) Mean Corpuscular Hemoglobin 27.0 PG (27.0-31.0) Mean Corpuscular Hemoglobin Concent 32.0 G/DL (32.0-36.0) Red Cell Distribution Width 12.0 % (11.6-14.8) Platelet Count 304 K/UL (150-450) Mean Platelet Volume 5.3 FL (6.5-10.1) Neutrophils (%) (Auto) 39.7 % (45.0-75.0) Lymphocytes (%) (Auto) 43.3 % (20.0-45.0) Monocytes (%) (Auto) 10.5 % (1.0-10.0) Eosinophils (%) (Auto) 4.6 % (0.0-3.0) Basophils (%) (Auto) 1.9 % (0.0-2.0) Sodium Level 140 MMOL/L (136-145) Potassium Level 4.2 MMOL/L (3.5-5.1) Chloride Level 104 MMOL/L (98-107) Carbon Dioxide Level 26 MMOL/L (21-32) Anion Gap 10 mmol/L (5-15) Blood Urea Nitrogen 12 mg/dL (7-18) Creatinine 1.4 MG/DL (0.55-1.30) Estimat Glomerular Filtration Rate > 60 mL/min (>60) Glucose Level 78 MG/DL (74-106) Calcium Level 9.8 MG/DL (8.5-10.1) Total Bilirubin 0.3 MG/DL (0.2-1.0) Aspartate Amino Transf (AST/SGOT) 14 U/L (15-37) Alanine Aminotransferase (ALT/SGPT) 20 U/L (12-78) Alkaline Phosphatase 99 U/L (46-116) Total Creatine Kinase 195 U/L (26-308) Creatine Kinase MB 1.2 NG/ML (0.0-3.6) Creatine Kinase MB Relative Index 0.6 Troponin I 0.000 ng/mL (0.000-0.056) Total Protein 7.8 G/DL (6.4-8.2) Albumin 3.9 G/DL (3.4-5.0) Globulin 3.9 g/dL Albumin/Globulin Ratio 1.0 (1.0-2.7) EKG Diagnostic Results Rate: normal Rhythm: NSR ST Segments: no acute changes ASA given to the pt in ED: No Rhythm Strip Diag. Results EP Interpretation: yes Rhythm: NSR, no PVC's, no ectopy Chest X-Ray Diagnostic Results Chest X-Ray Diagnostic Results : Chest X-Ray Ordered: Yes # of Views/Limited/Complete: 1 View Indication: Chest Pain EP Interpretation: Yes Interpretation: no consolidation, no effusion, no pneumothorax, no acute cardiopulmonary disease Impression: No acute disease Electronically Signed by: Electronically signed by Bautista Hahn MD Other X-Ray Diagnostic Results Other X-Ray Diagnostic Results : X-Ray ordered: KUB # of Views/Limited Vs Complete: 1 View Indication: Pain Interpretation: nonspecific bowel gas, no sbo, other - signficiant fecal impaction Impression: Other - constipation Electronically Signed by: Electronically signed by Bautista Hahn MD Last Vital Signs Date Time Temp Pulse Resp B/P (MAP) Pulse Ox O2 Delivery O2 Flow Rate FiO2 10/23/18 19:40 98.4 84 18 120/84 100 Room Air Status: improved Disposition: HOME, SELF-CARE Condition: Stable Scripts Docusate Sodium* (COLACE*) 100 Mg Capsule 100 MG ORAL THREE TIMES A DAY, #30 CAP Prov: Bautista Hahn MD 10/23/18 Magnesium Citrate (MAGNESIUM CITRATE) 296 Ml Solution 150 ML PO DAILY for 2 Days, #296 ML Prov: Bautista Hahn MD 10/23/18 Ranitidine Hcl* (ZANTAC*) 150 Mg Tablet 150 MG ORAL TWICE A DAY, #30 TAB Prov: Bautista Hahn MD 10/23/18 Referrals: [facility],REFERRING (PCP) Willie Ontiveros MD Patient Instructions: Constipation, Adult, [id number] Bautista Hahn MD Oct 23, 2018 21:44
--- NOTE | 2018-10-24 21:45 | Cardiology Report ---
APPROVED REPORT EKG Measurement Heart [id number] Normal sinus rhythm Normal ECG
== END 2018-10-23 19:40 | disposition home or self-care (01) ==
LOC: EMR 18:08
DX: K59.00 Constipation, unspecified (principal); R07.9 Chest pain, unspecified; Z88.0 Allergy status to penicillin; Z88.6 Allergy status to analgesic agent; E11.9 Type 2 diabetes mellitus without complications; I10 Essential (primary) hypertension; I25.2 Old myocardial infarction
CPT/HCPCS: 36415; 71045; 74018; 80053; 82550; 82553; 84484; 85025; 93005; 99284

== ENCOUNTER 2018-12-29 19:19 | Emergency (ER) | payer MEDICAID ==
[~2018-12-29] VITALS: Ht 188 cm; Wt 80.7 kg
[~2018-12-29 19:19] MED LIST changes: +COLACE100 MG ORAL; +MAGNESIUM CITR296 M1 PO
[2018-12-29 19:33] VITALS: BP 119/80
--- NOTE | 2018-12-29 19:36 | NUR ---
ED Nurse Note: Patient walked in to ER c/o left upper abdominal pain 8/10, and nose congestion. AAO x4, VSS at this time, skin is dry warm to touch.
[2018-12-29] MEDS ORDERED: traMADol 50mg tab ORAL ONE (20:00)
[2018-12-29] MEDS ORDERED: IBUPROFEN600 MG ORAL (20:32)
[2018-12-29] MEDS ORDERED: TRAMADOL HCL50 MG ORAL (20:32)
[2018-12-29 20:40] VITALS: BP 119/80
--- NOTE | 2018-12-29 20:40 | NUR ---
ER Nurse Note: Pt seen, treated, medically cleared for discharge by ERMD. Discharge instuctions and prescriptions given with repeat verbalization by pt. Emphasized to follow up with primay care provider; take whole course of medication. Explained each medication. All orders completed per ERMD orders. Pt a&ox4, VSS, no signs of distress. ID band removed. All questions answered per pt's questions. Pt left with all belongings, left with own transportation.
--- NOTE | 2018-12-29 22:25 | Emergency Room Report ---
History of Present Illness General Chief Complaint: Pain Source: Patient Present Illness HPI Patient is a 53-year-old male presenting for left-sided rib pain which began 2 days prior. He denies any known injury. Pain is a 7 out of 10 dull ache and worse with movement. He has tried Tylenol which is only minimally helped. Pain does not radiate. He denies other symptoms including nausea, vomiting, fever, chills, cough, hemoptysis, shortness of breath, chest pain, palpitations , numbness or tingling Allergies: Coded Allergies: CODEINE (Verified Allergy, Unknown, 08/14/18) PENICILLINS (Unverified Allergy, Unknown, 04/01/14) Patient History Past Medical History: see triage record Pertinent Family History: none Reviewed Nursing Documentation: PMH: Agreed; PSxH: Agreed Nursing Documentation-PMH Hx Cardiac Problems: Yes - H/O OF HEART ATTACK Hx Hypertension: Yes Hx Diabetes: Yes Hx Neurological Problems: Yes - Chronic Pain left-facial area Review of Systems All Other Systems: negative except mentioned in HPI Physical Exam Vital Signs Date Time Temp Pulse Resp B/P (MAP) Pulse Ox O2 Delivery O2 Flow Rate FiO2 12/29/18 19:27 98.2 89 16 119/80 (93) 98 Room Air Sp02 EP Interpretation: reviewed, normal General Appearance: no apparent distress, alert, GCS 15, non-toxic Head: normocephalic, atraumatic Respiratory: lungs clear, normal breath sounds, no wheezing, speaking full sentences, other - TTP over the L mid lateral intercostal space Cardiovascular #1: regular rate, rhythm, no edema Gastrointestinal: normal bowel sounds, non tender, soft, non-distended, no guarding, no rebound Musculoskeletal: back normal, gait/station normal, normal range of motion Skin: no rash Medical Decision Making PA Attestation Dr. Flynn is my supervising physician. Patient management was discussed with my supervising physician Diagnostic Impression: Primary Impression: Intercostal muscle pain ER Course Patient is a 53-year-old male presenting for left-sided rib pain which began 2 days prior. DDx considered but not limited to: PNA, bronchitis, fracture, sprain, among others PE: Vitals stable. NAD Lungs CTA bilat. RRR No deformity or flail chest TTP over L intercostal region. No bony tenderness CXR unremarkable. Patient is given pain medication in the emergency department and feels significantly better. He is discharged home with pain medication and is told to follow-up with primary doctor as soon as possible. ER precautions given Chest X-Ray Diagnostic Results Chest X-Ray Diagnostic Results : Chest X-Ray Ordered: Yes # of Views/Limited/Complete: 1 View, Limited Indication: Other - pain PA Xray: Interpretation reviewed, by supervising MD, and agrees with findings. Interpretation: no consolidation, no effusion, no pneumothorax, no acute cardiopulmonary disease Impression: No acute disease Electronically Signed by: Jose Raul Guzman PA-C Last Vital Signs Date Time Temp Pulse Resp B/P (MAP) Pulse Ox O2 Delivery O2 Flow Rate FiO2 12/29/18 20:49 98.2 12/29/18 20:40 16 119/80 98 Room Air 12/29/18 19:27 89 Status: improved Disposition: HOME, SELF-CARE Condition: Improved Scripts Ibuprofen* (MOTRIN*) 600 Mg Tablet 600 MG ORAL Q8H PRN for For Pain, #30 TAB 0 Refills Prov: JOSE RAUL GUZMAN 12/29/18 Tramadol Hcl* (ULTRAM*) 50 Mg Tablet 50 MG ORAL Q6H PRN for For Pain, #10 TAB 0 Refills Prov: JOSE RAUL GUZMANA. 12/29/18 Patient Instructions: Chest Wall Pain Additional Instructions: I discussed my findings with the patient. All questions and concerns have been answered. Treatment and medication compliance have been addressed. I advised the patient that they need to follow up with primary doctor within three days. Return to ER if symptoms worsen, new symptoms arise, or if needed for any reason. Patient verbalized understanding of discharge instructions. JOSE RAUL GUZMAN Dec 29, 2018 22:25
== END 2018-12-29 20:40 | disposition home or self-care (01) ==
LOC: EMR 19:45
DX: R07.82 Intercostal pain (principal); I10 Essential (primary) hypertension; E11.9 Type 2 diabetes mellitus without complications; I25.2 Old myocardial infarction; G89.29 Other chronic pain; R51 Headache; Z88.0 Allergy status to penicillin; Z88.6 Allergy status to analgesic agent
CPT/HCPCS: 71045; 99283

== ENCOUNTER 2019-01-16 21:05 | Emergency (ER) | payer MEDICAID ==
[~2019-01-16] VITALS: Ht 188 cm; Wt 74.8 kg
[2019-01-16 21:18] VITALS: BP 126/84
--- NOTE | 2019-01-16 21:22 | NUR ---
ED Nurse Note: Patient walked in to ER c/o left upper abdoinal pain 12/31, deny N/V/D. Stated that was here couple time for the same reason. AAO x4, VSS at this time, skin is warm to touch.
[2019-01-16] MEDS ORDERED: Dicyclomine HCl 10mg/5ml oral soln ORAL ONE (21:45)
[2019-01-16] MEDS ORDERED: Lidocaine 2% Visc 15ml soln ORAL ONE (21:45)
[2019-01-16] MEDS ORDERED: Mylanta II UD 30ml ORAL ONE (21:45)
--- NOTE | 2019-01-16 21:53 | Emergency Room Report ---
History of Present Illness General Chief Complaint: Abdominal Pain Source: Patient Present Illness HPI Patient presents with complaints of left-sided abdominal pain reports mainly in the left upper quadrant also, discomfort to the left lower quadrant Onset several days ago denies any vomiting or diarrhea Denies any fevers or chills denies any chest pain or shortness of breath denies any dysuria frequency patient has been seen several times for this pain and reports that it is Similar to previous presentations Denies any recent trauma Pain is 5 out of 10 burning and sharp Allergies: Coded Allergies: CODEINE (Verified Allergy, Unknown, 08/14/18) PENICILLINS (Unverified Allergy, Unknown, 04/01/14) Patient History Past Medical History: see triage record Reviewed Nursing Documentation: PMH: Agreed; PSxH: Agreed Nursing Documentation-PMH Hx Cardiac Problems: Yes - H/O OF HEART ATTACK Hx Hypertension: Yes Hx Diabetes: Yes Hx Neurological Problems: Yes - Chronic Pain left-facial area Review of Systems All Other Systems: negative except mentioned in HPI Physical Exam Vital Signs Date Time Temp Pulse Resp B/P (MAP) Pulse Ox O2 Delivery O2 Flow Rate FiO2 01/16/19 21:07 98.1 74 16 126/84 (98) 100 Room Air Sp02 EP Interpretation: reviewed, normal General Appearance: well appearing, no apparent distress Head: normocephalic, atraumatic Eyes: bilateral eye PERRL, bilateral eye EOMI ENT: hearing grossly normal, normal pharynx, TMs + canals normal, uvula midline Neck: full range of motion, supple, no meningismus, no bony tend Respiratory: lungs clear, normal breath sounds, no rhonchi, no respiratory distress, no retraction, no accessory muscle use Cardiovascular #1: normal peripheral pulses, regular rate, rhythm, no edema, no gallop, no JVD, no murmur Gastrointestinal: normal bowel sounds, non tender - On palpation however subjectively points to the left lower quadrant on exam, soft, no mass, no organomegaly, non-distended, no guarding, no hernia, no pulsatile mass, no rebound Genitourinary: no CVA tenderness Musculoskeletal: normal inspection Neurologic: oriented x3, responsive, sensory intact Psychiatric: mood/affect normal Skin: no rash Lymphatic: normal inspection, no adenopathy Medical Decision Making Diagnostic Impression: Primary Impression: Abdominal pain ER Course With the history exam and presentation, multiple differentials considered, including but not limited to appendicitis, gastritis, cholecystitis, diverticulitis Patient's blood work are at baseline levels Patient treated here in the ER and resting comfortably throughout his stay patient was here with family who at this time Reports that the patient also appears significantly improved and is stable for close outpatient follow-up Labs Test 01/16/19 21:55 White Blood Count 6.7 K/UL (4.8-10.8) Red Blood Count 4.20 M/UL (4.70-6.10) Hemoglobin 11.8 G/DL (14.2-18.0) Hematocrit 35.9 % (42.0-52.0) Mean Corpuscular Volume 85 FL (80-99) Mean Corpuscular Hemoglobin 28.1 PG (27.0-31.0) Mean Corpuscular Hemoglobin Concent 32.8 G/DL (32.0-36.0) Red Cell Distribution Width 11.8 % (11.6-14.8) Platelet Count 294 K/UL (150-450) Mean Platelet Volume 5.9 FL (6.5-10.1) Neutrophils (%) (Auto) 43.0 % (45.0-75.0) Lymphocytes (%) (Auto) 44.8 % (20.0-45.0) Monocytes (%) (Auto) 8.5 % (1.0-10.0) Eosinophils (%) (Auto) 2.3 % (0.0-3.0) Basophils (%) (Auto) 1.4 % (0.0-2.0) Sodium Level 141 MMOL/L (136-145) Potassium Level 4.5 MMOL/L (3.5-5.1) Chloride Level 104 MMOL/L (98-107) Carbon Dioxide Level 27 MMOL/L (21-32) Anion Gap 10 mmol/L (5-15) Blood Urea Nitrogen 16 mg/dL (7-18) Creatinine 1.7 MG/DL (0.55-1.30) Estimat Glomerular Filtration Rate 51.0 mL/min (>60) Glucose Level 234 MG/DL (74-106) Calcium Level 9.0 MG/DL (8.5-10.1) Total Bilirubin 0.2 MG/DL (0.2-1.0) Aspartate Amino Transf (AST/SGOT) 11 U/L (15-37) Alanine Aminotransferase (ALT/SGPT) 13 U/L (12-78) Alkaline Phosphatase 98 U/L (46-116) Total Protein 7.0 G/DL (6.4-8.2) Albumin 3.5 G/DL (3.4-5.0) Globulin 3.5 g/dL Albumin/Globulin Ratio 1.0 (1.0-2.7) Lipase 269 U/L (73-393) Last Vital Signs Date Time Temp Pulse Resp B/P (MAP) Pulse Ox O2 Delivery O2 Flow Rate FiO2 01/16/19 21:18 98.1 16 126/84 100 Room Air 01/16/19 21:18 74 Status: improved Disposition: HOME, SELF-CARE Condition: Improved Scripts Famotidine (PEPCID AC) 20 Mg Tablet 20 MG PO DAILY for 10 Days, TAB Prov: Channing Ivan DO 01/17/19 Mag Hydrox/Al Hydrox/Simeth (MAALOX MAXIMUM STRENGTH SUSP) 355 Ml Oral.susp 10 ML PO DAILY for 7 Days, ML Prov: Channing Ivan DO 01/17/19 Additional Instructions: Patient is provided with the discharge instructions notified to follow up with primary doctor in the next 2-3 days otherwise return to the er with any worsening symptoms. Please note that this report is being documented using [employer] technology. This can lead to erroneous entry secondary to incorrect interpretation by the dictating instrument. Channing Ivan DO Jan 16, 2019 21:53
[2019-01-16 22:14] LABS: ANION GAP 10 mmol/L (5-15); BLOOD UREA NITROGEN 16 mg/dL (7-18); CARBON DIOXIDE 27 MMOL/L (21-32); CHLORIDE 104 MMOL/L (98-107); CREATININE 1.7 MG/DL (0.55-1.30); POTASSIUM 4.5 MMOL/L (3.5-5.1); SODIUM 141 MMOL/L (136-145)
[2019-01-16 22:15] LABS: BASOPHILS % (AUTO) 1.4 % (0.0-2.0); EOSINOPHILS % (AUTO) 2.3 % (0.0-3.0); HEMATOCRIT 35.9 % (42.0-52.0); HEMOGLOBIN 11.8 G/DL (14.2-18.0); LYMPHOCYTES % (AUTO) 44.8 % (20.0-45.0); MEAN CORPUSCULAR VOLUME 85 FL (80-99); MONOCYTES % (AUTO) 8.5 % (1.0-10.0); PLATELET COUNT 294 K/UL (150-450); RED CELL DISTRIBUTION WIDTH 11.8 % (11.6-14.8); WHITE BLOOD COUNT 6.7 K/UL (4.8-10.8)
[2019-01-16 22:18] LABS: ALANINE AMINOTRANSFERASE 13 U/L (12-78); ALBUMIN 3.5 G/DL (3.4-5.0); ALKALINE PHOSPHATASE 98 U/L (46-116); ASPARTATE AMINO TRANSFERASE 11 U/L (15-37); BILIRUBIN,TOTAL 0.2 MG/DL (0.2-1.0)
[2019-01-17] MEDS ORDERED: PEPCID AC20 M2 PO (00:34)
[2019-01-17] MEDS ORDERED: MAALOX MAXIMUM355 M1 PO (00:34)
[2019-01-17 00:41] VITALS: BP 126/84
--- NOTE | 2019-01-17 00:41 | NUR ---
ER DISCHARGE NOTE: Patient is cleared to be discharged per ERMD, pt is aox4, on room air, with stable vital signs. pt was given dc and prescription instructions, pt was able to verbalize understanding, pt id band and iv site removed without complications. pt is able to ambulate with steady gait. pt took all belongings.
== END 2019-01-17 00:42 | disposition home or self-care (01) ==
LOC: EMR 21:44
DX: R10.9 Unspecified abdominal pain (principal); I10 Essential (primary) hypertension; E11.9 Type 2 diabetes mellitus without complications; G89.29 Other chronic pain; I25.2 Old myocardial infarction; Z88.0 Allergy status to penicillin; Z88.6 Allergy status to analgesic agent
CPT/HCPCS: 36415; 80053; 83690; 85025; Z7502; 99283

== ENCOUNTER 2019-05-27 16:26 | Emergency (ER) | payer MEDICAID ==
[~2019-05-27] VITALS: Ht 185.4 cm; Wt 78.0 kg
[~2019-05-27 16:26] MED LIST changes: +MAALOX MAXIMUM355 M1 PO; +PEPCID AC20 M2 PO
--- NOTE | 2019-05-27 16:28 | NUR ---
ED Nurse Note: PT NOT FOUND IN THE WAITING ROOM.
[2019-05-27 16:46] VITALS: BP 153/97
--- NOTE | 2019-05-27 16:46 | NUR ---
ED Nurse Note: PT AMBULATED TO ED C/O LEFT UPPER AND LOWER QUADRANT PAIN. PT DENIES N/V/D. PT REPORTS NASAL CONGESTION. PT STATES ON 05/10/2019 HE WAS AT [facility] AND THEY SAID HE NEEDED TO GET GALL BLADDER REMOVED.
[2019-05-27] MEDS ORDERED: Omnipaque-300 100ml vial INJ PRN (17:00)
[2019-05-27 17:14] LABS: APPEARANCE,URINE CLEAR; BILIRUBIN, URINE NEGATIVE (NEGATIVE); COLOR,URINE PALE YELLOW; GLUCOSE, URINE (UA) NEGATIVE (NEGATIVE); KETONES,URINE 1+ (NEGATIVE); LEUKOCYTE ESTERASE ,URINE NEGATIVE (NEGATIVE); NITRITE,URINE NEGATIVE (NEGATIVE); PH,URINE 6 (4.5-8.0); PROTEIN,URINE 3+ (NEGATIVE); UROBILINOGEN,URINE NORMAL MG/DL (0.0-1.0)
[2019-05-27 17:16] LABS: BASOPHILS % (AUTO) 2.3 % (0.0-2.0); EOSINOPHILS % (AUTO) 1.9 % (0.0-3.0); HEMATOCRIT 43.2 % (42.0-52.0); HEMOGLOBIN 13.3 G/DL (14.2-18.0); LYMPHOCYTES % (AUTO) 38.4 % (20.0-45.0); MEAN CORPUSCULAR VOLUME 88 FL (80-99); MONOCYTES % (AUTO) 6.9 % (1.0-10.0); NEUTROPHILS % (AUTO) 50.6 % (45.0-75.0); PLATELET COUNT 326 K/UL (150-450); RED CELL DISTRIBUTION WIDTH 13.7 % (11.6-14.8); WHITE BLOOD COUNT 5.8 K/UL (4.8-10.8)
[2019-05-27 17:22] LABS: ANION GAP 10 mmol/L (5-15); BLOOD UREA NITROGEN 15 mg/dL (7-18); CALCIUM 9.6 MG/DL (8.5-10.1); CARBON DIOXIDE 28 MMOL/L (21-32); CHLORIDE 103 MMOL/L (98-107); CREATININE 1.3 MG/DL (0.55-1.30); POTASSIUM 4.2 MMOL/L (3.5-5.1); SODIUM 141 MMOL/L (136-145)
[2019-05-27 17:26] LABS: ALANINE AMINOTRANSFERASE 23 U/L (12-78); ALBUMIN/GLOBULIN RATIO 0.9 (1.0-2.7); ALKALINE PHOSPHATASE 98 U/L (46-116); ASPARTATE AMINO TRANSFERASE 15 U/L (15-37); BILIRUBIN,TOTAL 0.2 MG/DL (0.2-1.0)
--- NOTE | 2019-05-27 17:50 | NUR ---
ED Nurse Note: CT compeleted
--- NOTE | 2019-05-27 17:53 | NUR ---
ED Nurse Note: US at bedside
[2019-05-27 18:25] VITALS: BP 144/91
--- NOTE | 2019-05-27 18:31 | Diagnostic Imaging Report ---
INDICATION: Abdominal pain TECHNIQUE: Continuous helical transaxial imaging of the abdomen and pelvis was obtained from the lung bases to the pubic symphysis during intravenous contrast administration. Coronal 2-D reformats were also obtained. Study obtained in a Siemens sensation [address] Automatic Exposure Control was utilized. Total Dose length Product (DLP): 994.[address] Dose Index Volume (CTDIvol): 16.8 mGy COMPARISON: 03/17/2018 FINDINGS: Lungs: Mild posterior dependent atelectasis demonstrated.. Liver: There is a curvilinear low-density focus in the left lobe of the liver extending to the dome. The significance of this is not known. This may be a focal scar, a focus of biliary ductal dilatation involving a small branch of the left lobe of the liver. This is a curiosity but may not be significant clinically. Ultrasound could be helpful to further elucidate. Gallbladder/biliary system: Gallbladder is contracted. There is no biliary ductal dilatation. Portal vein enhances normally.. Spleen: Unremarkable Pancreas: Unremarkable Kidneys: There is a 1.6 cm cyst in the upper pole the right kidney. There is no hydronephrosis. Both kidneys enhance normally.. Adrenal glands: Unremarkable Aorta/IVC: Mild calcification of aorta iliac arteries demonstrated. Bowel: Appendix is normal. Bowel gas pattern is nonobstructive. Few diverticula demonstrated within the colon. No evidence of acute diverticulitis. Bladder: Mild thickening of the wall the urinary bladder is noted. Correlate for cystitis Peritoneum: There is no free fluid. Bones: There is transitional lumbosacral anatomy with left unilateral pseudoarthrosis noted. IMPRESSION: No acute findings. 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 Contracted gallbladder not evaluated well. Linear cleft of low density in the left lobe of the liver. Significance is not known. [facility] has communicated the preliminary results to the Emergency Department. Their findings are largely concordant with this report. The CT scanner at [facility] is accredited by the [employer] and the scans are performed using dose optimization techniques as appropriate to a performed exam including Automatic Exposure control.
--- NOTE | 2019-05-27 19:00 | Emergency Room Report ---
History of Present Illness General Chief Complaint: Abdominal Pain Source: Patient Present Illness HPI This patient states that for the past 3 days or so he has had intermittent left- sided abdominal pain. He states that sometimes the entire left side of his body hurts. He has had this previously and was diagnosed with gallstones at another hospital. He does have a referral to a general surgeon for elective removal of his gallbladder. He denies recent illness. He denies nausea or vomiting. He denies fever or chills. He denies dysuria or hematuria. Denies cough or congestion. He denies shortness of breath. He denies chest pain. He has no other complaints. Allergies: Coded Allergies: CODEINE (Verified Allergy, Unknown, 08/14/18) PENICILLINS (Unverified Allergy, Unknown, 04/01/14) Patient History Past Medical History: see triage record, DM, HTN, CVA/TIA Social History: Denies: smoking, alcohol use, drug use Reviewed Nursing Documentation: PMH: Agreed; PSxH: Agreed Nursing Documentation-PMH Past Medical History: No History, Except For Hx Cardiac Problems: Yes - H/O OF HEART ATTACK Hx Hypertension: Yes Hx Diabetes: Yes Hx Neurological Problems: Yes - Chronic Pain left-facial area Review of Systems All Other Systems: negative except mentioned in HPI Physical Exam Vital Signs Date Time Temp Pulse Resp B/P (MAP) Pulse Ox O2 Delivery O2 Flow Rate FiO2 05/27/19 16:34 97.5 87 18 153/97 (115) 99 Room Air Sp02 EP Interpretation: reviewed, normal General Appearance: no apparent distress, alert, GCS 15, non-toxic Head: normocephalic, atraumatic Eyes: bilateral eye normal inspection, bilateral eye PERRL ENT: hearing grossly normal, normal pharynx, no angioedema, normal voice Neck: full range of motion, supple/symm/no masses Respiratory: chest non-tender, lungs clear, normal breath sounds, no respiratory distress, no retraction, no accessory muscle use, speaking full sentences Cardiovascular #1: regular rate, rhythm, no edema Gastrointestinal: normal bowel sounds, non tender, soft, non-distended, no guarding, no rebound Rectal: deferred Musculoskeletal: back normal, normal range of motion, gait/station normal, non- tender Neurologic: alert, motor strength/tone normal, oriented x3, sensory intact, responsive, speech normal Psychiatric: judgement/insight normal, memory normal, mood/affect normal, no suicidal/homicidal ideation Skin: no rash, normal color Medical Decision Making Diagnostic Impression: Primary Impression: Abdominal pain Additional Impression: Gallstones ER Course This patient had entire left-sided pain to include left-sided abdominal pain. He underwent CT of the abdomen pelvis which was unremarkable. Ultrasound of the abdomen which only cholelithiasis. Laboratory work-up was also unremarkable. EKG without any concerning findings. Overall, this patient's evaluation is benign. Patient was instructed to follow-up closely with his primary care physician and the planned follow-up with the general surgeon. The patient is given close return precautions and follow-up instructions. Laboratory Tests Test 05/27/19 16:44 White Blood Count 5.8 K/UL (4.8-10.8) Red Blood Count 4.90 M/UL (4.70-6.10) Hemoglobin 13.3 G/DL (14.2-18.0) L Hematocrit 43.2 % (42.0-52.0) Mean Corpuscular Volume 88 FL (80-99) Mean Corpuscular Hemoglobin 27.1 PG (27.0-31.0) Mean Corpuscular Hemoglobin Concent 30.8 G/DL (32.0-36.0) L Red Cell Distribution Width 13.7 % (11.6-14.8) Platelet Count 326 K/UL (150-450) Mean Platelet Volume 6.2 FL (6.5-10.1) L Neutrophils (%) (Auto) 50.6 % (45.0-75.0) Lymphocytes (%) (Auto) 38.4 % (20.0-45.0) Monocytes (%) (Auto) 6.9 % (1.0-10.0) Eosinophils (%) (Auto) 1.9 % (0.0-3.0) Basophils (%) (Auto) 2.3 % (0.0-2.0) H Urine Color Pale yellow Urine Appearance Clear Urine pH 6 (4.5-8.0) Urine Specific [place] 1.015 (1.005-1.035) Urine Protein 3+ (NEGATIVE) H Urine Glucose (UA) Negative (NEGATIVE) Urine Ketones 1+ (NEGATIVE) H Urine Blood Negative (NEGATIVE) Urine Nitrite Negative (NEGATIVE) Urine Bilirubin Negative (NEGATIVE) Urine Urobilinogen Normal MG/DL (0.0-1.0) Urine Leukocyte Esterase Negative (NEGATIVE) Urine RBC 0 /HPF (0 - 0) Urine WBC 0 /HPF (0 - 0) Urine Squamous Epithelial Cells None /LPF (NONE/OCC) Urine Bacteria None /HPF (NONE) Sodium Level 141 MMOL/L (136-145) Potassium Level 4.2 MMOL/L (3.5-5.1) Chloride Level 103 MMOL/L (98-107) Carbon Dioxide Level 28 MMOL/L (21-32) Anion Gap 10 mmol/L (5-15) Blood Urea Nitrogen 15 mg/dL (7-18) Creatinine 1.3 MG/DL (0.55-1.30) Estimate Glomerular Filtration Rate > 60 mL/min (>60) Glucose Level 122 MG/DL (74-106) H Calcium Level 9.6 MG/DL (8.5-10.1) Total Bilirubin 0.2 MG/DL (0.2-1.0) Aspartate Amino Transferase (AST) 15 U/L (15-37) Alanine Aminotransferase (ALT) 23 U/L (12-78) Alkaline Phosphatase 98 U/L (46-116) Total Protein 8.3 G/DL (6.4-8.2) H Albumin 4.0 G/DL (3.4-5.0) Globulin 4.3 g/dL Albumin/Globulin Ratio 0.9 (1.0-2.7) L Lipase 272 U/L (73-393) Urine Opiates Screen Negative (NEGATIVE) Urine Barbiturates Screen Negative (NEGATIVE) Phencyclidine (PCP) Screen Negative (NEGATIVE) Urine Amphetamines Screen Negative (NEGATIVE) Urine Benzodiazepines Screen Negative (NEGATIVE) Urine Cocaine Screen Negative (NEGATIVE) Urine Marijuana (THC) Screen Negative (NEGATIVE) EKG Diagnostic Results Other Impression RBBB CT/MRI/US Diagnostic Results CT/MRI/US Diagnostic Results : Imaging Test Ordered: CT abd/pelvis Impression No acute findings. See official report in the electronic medical record. Ultrasound abdomen: Multiple small gallstones. Otherwise within normal limits. Last Vital Signs Date Time Temp Pulse Resp B/P (MAP) Pulse Ox O2 Delivery O2 Flow Rate FiO2 05/27/19 18:25 97.7 91 15 144/91 100 Room Air Status: improved Disposition: HOME, SELF-CARE Condition: Improved Referrals: NON PHYSICIAN (PCP) Patient Instructions: Abdominal Pain, Adult Nahed Carver DO May 27, 2019 18:59
--- NOTE | 2019-05-27 19:06 | NUR ---
HAND-OFF: Report given to sammi sullivan.
[2019-05-27 19:34] VITALS: BP 144/91
--- NOTE | 2019-05-28 11:58 | Diagnostic Imaging Report ---
Indication: Abdominal pain Technique: Grayscale and duplex Doppler imaging of the abdomen performed. Comparison: None Findings: The liver is unremarkable. Doppler interrogation of the main portal vein shows patency with hepatopedal, monophasic flow. There is no biliary ductal dilatation identified. Gallbladder stones noted within a contracted gallbladder. Sonographic Connell's negative per technologist. There is no gallbladder wall thickening or pericholecystic fluid. CBD is 2 mm in diameter. There demonstrated part of the pancreas, aorta and IVC show no definite abnormalities. Nonobstructive stones suspected within the left kidney with multiple shadowing foci. Even in retrospect, the finding is not seen or appreciated on the recent CT. There is no hydronephrosis. IMPRESSION: Cholelithiasis. Nonobstructive stones suspected in the left kidney.
== END 2019-05-27 19:35 | disposition home or self-care (01) ==
LOC: EMR 17:00
DX: R10.9 Unspecified abdominal pain (principal); K80.80 Other cholelithiasis without obstruction; E11.9 Type 2 diabetes mellitus without complications; I10 Essential (primary) hypertension; I25.2 Old myocardial infarction; Z86.73 Personal history of transient ischemic attack (TIA), and cerebral infarction without residual deficits; Z88.6 Allergy status to analgesic agent; Z88.0 Allergy status to penicillin
CPT/HCPCS: 36415; 74177; 76700; 80053; 80307; 81003; 83690; 85025; 96360; 96361; Q9967; Z7502; 99284

== ENCOUNTER 2019-06-11 18:40 | Emergency (ER) | payer MEDICAID ==
[~2019-06-11] VITALS: Ht 188 cm; Wt 76.2 kg
[2019-06-11 19:10] VITALS: BP 142/94
--- NOTE | 2019-06-11 19:10 | NUR ---
ED Nurse Note: Pt walked in to ED c/o left side back pain radiating to upper abdomen x3 days ago. Denies nausea, vomiting and diarrhea. No fall / injury. Afebrile. Not in any distress. VSS. Family member at bedside.
--- NOTE | 2019-06-11 20:00 | NUR ---
ED Nurse Note: ERMD at bedside.
--- NOTE | 2019-06-11 20:05 | NUR ---
ED Nurse Note: IV line establsihed. Blood and urine specimen collected and sent to lab.
[2019-06-11 20:28] LABS: APPEARANCE,URINE CLEAR; BILIRUBIN, URINE NEGATIVE (NEGATIVE); GLUCOSE, URINE (UA) 2+ (NEGATIVE); KETONES,URINE 1+ (NEGATIVE); LEUKOCYTE ESTERASE ,URINE 1+ (NEGATIVE); NITRITE,URINE NEGATIVE (NEGATIVE); PH,URINE 5 (4.5-8.0); PROTEIN,URINE 3+ (NEGATIVE); UROBILINOGEN,URINE 4 MG/DL (0.0-1.0)
--- NOTE | 2019-06-11 20:34 | Emergency Room Report ---
History of Present Illness General Chief Complaint: Abdominal Pain Source: Patient Present Illness HPI Patient is a 53-year-old male presents for increased left-sided flank pain. Patient reports having initial pain to the left lower abdomen which had gradually migrated upward. Had prior history of type 2 diabetes as well as hypertension. Reports having waxing and waning pain to the left side of his abdomen. Had recent CT imaging and ultrasound performed at this hospital. This showed some ultrasound showed some evidence of nonobstructing renal stones Allergies: Coded Allergies: CODEINE (Verified Allergy, Unknown, 08/14/18) PENICILLINS (Unverified Allergy, Unknown, 04/01/14) Patient History Past Medical History: see triage record, DM, HTN Reviewed Nursing Documentation: PMH: Agreed; PSxH: Agreed Nursing Documentation-PMH Past Medical History: No History, Except For Hx Cardiac Problems: Yes - H/O OF HEART ATTACK Hx Hypertension: Yes Hx Diabetes: Yes Hx Neurological Problems: Yes - Chronic Pain left-facial area Review of Systems All Other Systems: negative except mentioned in HPI Physical Exam Vital Signs Date Time Temp Pulse Resp B/P (MAP) Pulse Ox O2 Delivery O2 Flow Rate FiO2 06/11/19 18:46 97.5 93 15 142/94 (110) 99 Room Air Sp02 EP Interpretation: reviewed, normal General Appearance: normal inspection, well appearing, no apparent distress, alert, GCS 15 Head: atraumatic ENT: normal ENT inspection, hearing grossly normal, normal voice Neck: normal inspection, full range of motion, supple, no bony tend Respiratory: normal inspection, lungs clear, normal breath sounds, no respiratory distress, no retraction, no wheezing Cardiovascular #1: regular rate, rhythm, no edema Gastrointestinal: normal inspection, normal bowel sounds, soft, no guarding, no hernia, tenderness - Left lower quadrant tenderness no guarding no rebound Genitourinary: no CVA tenderness Musculoskeletal: normal inspection, back normal, normal range of motion Neurologic: alert, responsive, speech normal, normal inspection Psychiatric: normal inspection, judgement/insight normal, mood/affect normal Medical Decision Making Diagnostic Impression: Primary Impression: Abdominal pain Additional Impression: Renal colic on left side ER Course Patient presented for left-sided flank pain. Differential diagnosis includes not limited to diverticulitis, colitis, urinary tract infection, stone among others. Patient has a benign exam and does not appear to require any imaging or laboratory testing at this time. Patient recent ER visit with similar symptoms. Imaging that time did show some evidence of some small nonobstructing stones. Patient was given prescription for medication for discomfort as well as for antibiotics due to minimal urinary infection. Patient advised to follow-up with his primary care physician as well as urology. He was advised to return if he began having fever persistent vomiting or worsening pain. The patient is advised to follow up with primary care doctor in 1-2 days. Patient is advised to return if any worsening condition or if any changes in status that are concerning. This report is dictated with Independent IP research test engine operator software which may occasionally lead to discrepancies related to use of this software. Labs Test 06/11/19 19:00 06/11/19 20:11 Urine Color Yellow Urine Appearance Clear Urine pH 5 (4.5-8.0) Urine Specific [place] 1.030 (1.005-1.035) Urine Protein 3+ (NEGATIVE) Urine Glucose (UA) 2+ (NEGATIVE) Urine Ketones 1+ (NEGATIVE) Urine Blood Negative (NEGATIVE) Urine Nitrite Negative (NEGATIVE) Urine Bilirubin Negative (NEGATIVE) Urine Urobilinogen 4 MG/DL (0.0-1.0) Urine Leukocyte Esterase 1+ (NEGATIVE) Urine RBC 0-2 /HPF (0 - 0) Urine WBC 2-4 /HPF (0 - 0) Urine Squamous Epithelial Cells None /LPF (NONE/OCC) Urine Bacteria Occasional /HPF (NONE) White Blood Count 5.4 K/UL (4.8-10.8) Red Blood Count 4.61 M/UL (4.70-6.10) Hemoglobin 12.9 G/DL (14.2-18.0) Hematocrit 38.3 % (42.0-52.0) Mean Corpuscular Volume 83 FL (80-99) Mean Corpuscular Hemoglobin 28.0 PG (27.0-31.0) Mean Corpuscular Hemoglobin Concent 33.6 G/DL (32.0-36.0) Red Cell Distribution Width 12.9 % (11.6-14.8) Platelet Count 306 K/UL (150-450) Mean Platelet Volume 5.5 FL (6.5-10.1) Neutrophils (%) (Auto) 43.8 % (45.0-75.0) Lymphocytes (%) (Auto) 43.6 % (20.0-45.0) Monocytes (%) (Auto) 7.4 % (1.0-10.0) Eosinophils (%) (Auto) 3.1 % (0.0-3.0) Basophils (%) (Auto) 2.0 % (0.0-2.0) Prothrombin Time 10.5 SEC (9.30-11.50) Prothromb Time International Ratio 1.0 (0.9-1.1) Activated Partial Thromboplast Time 27 SEC (23-33) Sodium Level 142 MMOL/L (136-145) Potassium Level 3.7 MMOL/L (3.5-5.1) Chloride Level 103 MMOL/L (98-107) Carbon Dioxide Level 26 MMOL/L (21-32) Anion Gap 13 mmol/L (5-15) Blood Urea Nitrogen 15 mg/dL (7-18) Creatinine 0.9 MG/DL (0.55-1.30) Estimat Glomerular Filtration Rate > 60 mL/min (>60) Glucose Level 136 MG/DL (74-106) Calcium Level 10.0 MG/DL (8.5-10.1) Total Bilirubin 0.2 MG/DL (0.2-1.0) Aspartate Amino Transf (AST/SGOT) 18 U/L (15-37) Alanine Aminotransferase (ALT/SGPT) 27 U/L (12-78) Alkaline Phosphatase 90 U/L (46-116) Total Protein 9.1 G/DL (6.4-8.2) Albumin 4.4 G/DL (3.4-5.0) Globulin 4.7 g/dL Albumin/Globulin Ratio 0.9 (1.0-2.7) Last Vital Signs Date Time Temp Pulse Resp B/P (MAP) Pulse Ox O2 Delivery O2 Flow Rate FiO2 06/11/19 18:46 97.5 93 15 142/94 (110) 99 Room Air Status: improved Disposition: HOME, SELF-CARE Condition: Stable Scripts Levofloxacin (LEVOFLOXACIN*) 500 Mg Tablet 500 MG ORAL DAILY, #7 TAB Prov: Shukri Taylor MD 06/11/19 Hydrocodone Bit/Acetaminophen 5-325* (NORCO 5-325*) 1 Each Tablet 1 TAB ORAL Q6H PRN for For Pain, #20 TAB 0 Refills Prov: Shukri Taylor MD 06/11/19 Shukri Taylor MD Jun 11, 2019 20:34
[2019-06-11 20:35] LABS: COLOR,URINE YELLOW
[2019-06-11] MEDS ORDERED: Ketorolac 30mg Inj IV ONE (20:45)
[2019-06-11 20:53] LABS: EOSINOPHILS % (AUTO) 3.1 % (0.0-3.0); HEMATOCRIT 38.3 % (42.0-52.0); HEMOGLOBIN 12.9 G/DL (14.2-18.0); LYMPHOCYTES % (AUTO) 43.6 % (20.0-45.0); MEAN CORPUSCULAR VOLUME 83 FL (80-99); MONOCYTES % (AUTO) 7.4 % (1.0-10.0); NEUTROPHILS % (AUTO) 43.8 % (45.0-75.0); PLATELET COUNT 306 K/UL (150-450); RED BLOOD COUNT 4.61 M/UL (4.70-6.10); RED CELL DISTRIBUTION WIDTH 12.9 % (11.6-14.8); WHITE BLOOD COUNT 5.4 K/UL (4.8-10.8)
[2019-06-11 20:57] LABS: ANION GAP 13 mmol/L (5-15); BLOOD UREA NITROGEN 15 mg/dL (7-18); CARBON DIOXIDE 26 MMOL/L (21-32); CHLORIDE 103 MMOL/L (98-107); CREATININE 0.9 MG/DL (0.55-1.30); POTASSIUM 3.7 MMOL/L (3.5-5.1); SODIUM 142 MMOL/L (136-145)
[2019-06-11 21:01] LABS: ALANINE AMINOTRANSFERASE 27 U/L (12-78); ALBUMIN 4.4 G/DL (3.4-5.0); ALBUMIN/GLOBULIN RATIO 0.9 (1.0-2.7); ALKALINE PHOSPHATASE 90 U/L (46-116); ASPARTATE AMINO TRANSFERASE 18 U/L (15-37); BILIRUBIN,TOTAL 0.2 MG/DL (0.2-1.0)
[2019-06-11] MEDS ORDERED: NORCO 5-325 TA1 EACH ORAL (21:15)
[2019-06-11] MEDS ORDERED: LEVOFLOXACIN500 MG ORAL (21:16)
[2019-06-11 21:36] VITALS: BP 146/91
--- NOTE | 2019-06-11 21:36 | NUR ---
ED Nurse Note: Pt cleared by ERMD for discharge. DC instructions/prescription was given and explained to pt and verbalized understanding of teachings. All medical deviecs such as ID band and IV line removed. Pt is AAO x4, ambulatory and left with all personal belongings. Accompanied by his son.
== END 2019-06-11 21:36 | disposition home or self-care (01) ==
LOC: EMR 19:20
DX: N23 Unspecified renal colic (principal); I10 Essential (primary) hypertension; E11.9 Type 2 diabetes mellitus without complications; Z86.79 Personal history of other diseases of the circulatory system; Z88.5 Allergy status to narcotic agent; Z88.0 Allergy status to penicillin
CPT/HCPCS: 36415; 80053; 81001; 85025; 85610; 85730; 96374; J1885; J7040; Z7502; 99284

== ENCOUNTER 2019-09-03 01:31 | Emergency (ER) | payer MEDICAID ==
[~2019-09-03] VITALS: Ht 188 cm; Wt 80.7 kg
[~2019-09-03 01:31] MED LIST changes: +LEVOFLOXACIN500 MG ORAL; +NORCO 5-325 TA1 EACH ORAL
[2019-09-03 01:52] VITALS: BP 156/97
--- NOTE | 2019-09-03 01:53 | Emergency Room Report ---
History of Present Illness General Chief Complaint: Abdominal Pain Source: Patient Present Illness HPI This is a 53-year-old male with history of high blood pressure and diabetes. He presents with triply abdominal pain. Onset for about a week now. Pain is mostly epigastric and left upper quadrant. Worse with eating. Occasional nausea and vomiting. No diarrhea. Pain is sharp in nature. Worse with eating. Worse with palpation. Better with rest. Pain is 8 out of 10. Similar symptom in the past. He is scheduled to have his gallbladder removed for gallstone but because of the COVID pandemic, that been put on hold. Patient denies any other complaint. Not take anything for pain at home. Allergies: Coded Allergies: CODEINE (Verified Allergy, Unknown, 08/14/18) PENICILLINS (Unverified Allergy, Unknown, 04/01/14) COVID-19 Screening Contact w/high risk pt: No Recent Travel to affected area: No Experienced COVID-19 symptoms?: No Patient History Past Medical History: see triage record, old chart reviewed, DM, HTN Past Surgical History: none Pertinent Family History: none Social History: Denies: smoking Immunizations: other Reviewed Nursing Documentation: PMH: Agreed; PSxH: Agreed Nursing Documentation-PMH Hx Cardiac Problems: Yes - H/O OF HEART ATTACK Hx Hypertension: Yes Hx Diabetes: Yes Hx Neurological Problems: Yes - Chronic Pain left-facial area Review of Systems Eye: Denies: eye pain, blurred vision ENT: Denies: ear pain, nose congestion, throat swelling Respiratory: Denies: cough, shortness of breath Cardiovascular: Denies: chest pain, palpitations Gastrointestinal: Reports: abdominal pain, nausea, vomiting; Denies: diarrhea Musculoskeletal: Denies: back pain, joint pain Skin: Denies: rash Neurological: Denies: headache, numbness Endocrine: Denies: increased thirst, increased urine Hematologic/Lymphatic: Denies: easy bruising All Other Systems: negative except mentioned in HPI Physical Exam Vital Signs Date Time Temp Pulse Resp B/P (MAP) Pulse Ox O2 Delivery O2 Flow Rate FiO2 09/03/19 01:35 98.2 95 20 156/97 (116) 98 Room Air Vitals with high blood pressure Sp02 EP Interpretation: reviewed, normal General Appearance: well appearing, no apparent distress, alert Head: normocephalic, atraumatic Eyes: bilateral eye PERRL, bilateral eye EOMI ENT: hearing grossly normal, normal pharynx Neck: full range of motion, supple, no meningismus Respiratory: chest non-tender, lungs clear, normal breath sounds Cardiovascular #1: regular rate, rhythm, no murmur Gastrointestinal: normal bowel sounds, no mass, no organomegaly, no bruit, non- distended, tenderness - Epigastric and left upper quadrant Musculoskeletal: back normal, normal range of motion, gait/station normal Psychiatric: mood/affect normal Medical Decision Making Diagnostic Impression: Primary Impression: Abdominal pain of unknown etiology Additional Impression: Constipation Qualified Codes: K59.00 - Constipation, unspecified ER Course Patient presents with abdominal pain. No evidence any obstruction or acute abdomen. No infection. Will discharge home. CT/MRI/US Diagnostic Results CT/MRI/US Diagnostic Results : Imaging Test Ordered: CT abdomen pelvis Impression Negative per radiologist Last Vital Signs Date Time Temp Pulse Resp B/P (MAP) Pulse Ox O2 Delivery O2 Flow Rate FiO2 09/03/19 01:35 98.2 95 20 156/97 (116) 98 Room Air Status: improved Disposition: HOME, SELF-CARE Condition: Stable Scripts Hydrocodone Bit/Acetaminophen 5-325* (NORCO 5-325 TABLET*) 1 Each Tablet 1 TAB ORAL Q6H PRN for FOR PAIN, #10 TAB 0 Refills Prov: Akhil Kuhn MD 09/03/19 Polyethylene Glycol* (MIRALAX*) 17 Gm Powd.pack 17 GM ORAL DAILY, #30 PACKET Prov: Akhil Kuhn MD 09/03/19 Patient Instructions: Abdominal Pain, Adult Additional Instructions: Follow-up with your doctor in 7 days. Return if symptoms worsen. Akhil Kuhn MD September 03, 2019 01:53
[2019-09-03] MEDS ORDERED: Pantoprazole Inj IV ONE (02:00)
[2019-09-03] MEDS ORDERED: Ketorolac 30mg Inj IV ONE (02:00)
[2019-09-03 02:10] LABS: APPEARANCE,URINE CLEAR; BILIRUBIN, URINE NEGATIVE (NEGATIVE); GLUCOSE, URINE (UA) NEGATIVE (NEGATIVE); KETONES,URINE NEGATIVE (NEGATIVE); LEUKOCYTE ESTERASE ,URINE 1+ (NEGATIVE); NITRITE,URINE NEGATIVE (NEGATIVE); PH,URINE 8 (4.5-8.0); PROTEIN,URINE 3+ (NEGATIVE); UROBILINOGEN,URINE 1 MG/DL (0.0-1.0)
[2019-09-03 02:14] LABS: COLOR,URINE YELLOW
[2019-09-03 02:16] LABS: BASOPHILS % (AUTO) 1.7 % (0.0-2.0); HEMATOCRIT 42.8 % (42.0-52.0); HEMOGLOBIN 14.7 G/DL (14.2-18.0); LYMPHOCYTES % (AUTO) 39.9 % (20.0-45.0); MEAN CORPUSCULAR VOLUME 80 FL (80-99); MONOCYTES % (AUTO) 5.9 % (1.0-10.0); NEUTROPHILS % (AUTO) 50.6 % (45.0-75.0); PLATELET COUNT 335 K/UL (150-450); RED BLOOD COUNT 5.35 M/UL (4.70-6.10); RED CELL DISTRIBUTION WIDTH 12.1 % (11.6-14.8); WHITE BLOOD COUNT 8.1 K/UL (4.8-10.8)
[2019-09-03 02:20] LABS: ANION GAP 11 mmol/L (5-15); BLOOD UREA NITROGEN 15 mg/dL (7-18); CALCIUM 9.8 MG/DL (8.5-10.1); CARBON DIOXIDE 29 MMOL/L (21-32); CHLORIDE 101 MMOL/L (98-107); CREATININE 1.3 MG/DL (0.55-1.30); POTASSIUM 3.8 MMOL/L (3.5-5.1); SODIUM 141 MMOL/L (136-145)
[2019-09-03 02:25] LABS: ALANINE AMINOTRANSFERASE 15 U/L (12-78); ALBUMIN 4.1 G/DL (3.4-5.0); ALBUMIN/GLOBULIN RATIO 0.9 (1.0-2.7); ALKALINE PHOSPHATASE 112 U/L (46-116); ASPARTATE AMINO TRANSFERASE 13 U/L (15-37); BILIRUBIN,TOTAL 0.3 MG/DL (0.2-1.0)
--- NOTE | 2019-09-03 03:26 | Diagnostic Imaging Report ---
EXAM: CT Abdomen and Pelvis Without Intravenous Contrast CLINICAL HISTORY: ABD PAIN TECHNIQUE: Axial computed tomography images of the abdomen and pelvis without intravenous contrast. CTDI is 4.3 mGy and DLP is 235.1 mGy-cm. One or more of the following dose reduction techniques were used: automated exposure control, adjustment of the mA and/or kV according to patient size, use of iterative reconstruction technique. COMPARISON: None. FINDINGS: Lung bases: Unremarkable. No mass. No consolidation. ABDOMEN: Liver: Unremarkable. Gallbladder and bile ducts: Unremarkable. No calcified stones. No ductal dilation. Pancreas: Unremarkable. No ductal dilation. Spleen: Unremarkable. No splenomegaly. Adrenals: Unremarkable. No mass. Kidneys and ureters: Unremarkable. No obstructing stones. No hydronephrosis. Stomach and bowel: Increased fecal debris within the colon consistent with constipation. No obstruction. No mucosal thickening. PELVIS: Appendix: Normal appendix. Bladder: Urinary bladder is decompressed otherwise unremarkable. No stones. Reproductive: Normal size of prostate gland. ABDOMEN and PELVIS: Intraperitoneal space: Unremarkable. No free air. No significant fluid collection. Bones/joints: Unremarkable bony structures. No acute fracture. No dislocation. Soft tissues: Unremarkable. Vasculature: Mild atherosclerotic disease of the right common iliac artery otherwise unremarkable aorta and retroperitoneum. No abdominal aortic aneurysm. Lymph nodes: Unremarkable. No enlarged lymph nodes. IMPRESSION: 1. Constipation. No acute appendicitis or bowel obstruction. 2. Unremarkable abdominal viscera. Specifically, no distinct intrarenal stone or hydronephrosis. Unremarkable gallbladder.
[2019-09-03] MEDS ORDERED: MIRALAX17 GM ORAL (03:33)
[2019-09-03] MEDS ORDERED: NORCO 5-325 TA1 EAC1 ORAL (03:33)
[2019-09-03 03:35] VITALS: BP 156/97
== END 2019-09-03 03:35 | disposition home or self-care (01) ==
LOC: EMR 02:34
DX: R10.13 Epigastric pain (principal); K59.00 Constipation, unspecified; K80.80 Other cholelithiasis without obstruction; I10 Essential (primary) hypertension; E11.9 Type 2 diabetes mellitus without complications; Z86.79 Personal history of other diseases of the circulatory system; Z88.0 Allergy status to penicillin; Z88.5 Allergy status to narcotic agent
CPT/HCPCS: 36415; 74176; 80053; 81003; 83690; 85025; 96361; 96374; 96375; J1885; J2405; J7030; S0164; Z7502; 99284

== ENCOUNTER 2019-10-02 21:40 | Emergency (ER) | payer MEDICAID ==
[~2019-10-02] VITALS: Ht 188 cm; Wt 80.7 kg
[~2019-10-02 21:40] MED LIST changes: +MIRALAX17 GM ORAL; +NORCO 5-325 TA1 EAC1 ORAL
[2019-10-02] MEDS ORDERED: LOTENSIN20 MG ORAL (21:48)
[2019-10-02] MEDS ORDERED: DICYCLOMINE HCL10 MG ORAL (22:12)
--- NOTE | 2019-10-02 22:12 | Emergency Room Report ---
History of Present Illness General Chief Complaint: Abdominal Pain Source: Patient Present Illness HPI This is a 54-year-old male with history of high blood pressure. He has a history of chronic abdominal pain. He has been here several times with it. CT scan always been negative. He said he has colonoscopy and endoscopy done 6 months ago and everything was normal. He presents with epigastric pain been ongoing for 2 weeks. He was here about 3 to 4 weeks ago for the same thing. CT scan was negative other than for constipation. Pain is mostly epigastric area. Sharp in nature. On and off. Nothing made it better. Nothing made it worse. Pain is 8 out of 10. No radiation. 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 COVID-19 Screening: Negative COVID-19 COVID-19 Testing Source: 3 MONTHS AGO @ [facility] Patient History Past Medical History: see triage record, old chart reviewed, HTN Past Surgical History: other Pertinent Family History: none Social History: Denies: smoking Immunizations: other Reviewed Nursing Documentation: PMH: Agreed; PSxH: Agreed Nursing Documentation-PMH Hx Cardiac Problems: Yes - H/O OF HEART ATTACK Hx Hypertension: Yes Hx Diabetes: Yes Hx Neurological Problems: Yes - Chronic Pain left-facial area Review of Systems Eye: Denies: eye pain, blurred vision ENT: Denies: ear pain, nose congestion, throat swelling Respiratory: Denies: cough, shortness of breath Cardiovascular: Denies: chest pain, palpitations Gastrointestinal: Reports: abdominal pain; Denies: diarrhea, nausea, vomiting Musculoskeletal: Denies: back pain, joint pain Skin: Denies: rash Neurological: Denies: headache, numbness Endocrine: Denies: increased thirst, increased urine Hematologic/Lymphatic: Denies: easy bruising All Other Systems: negative except mentioned in HPI Physical Exam Vital Signs Date Time Temp Pulse Resp B/P (MAP) Pulse Ox O2 Delivery O2 Flow Rate FiO2 10/02/19 21:43 98.8 106 20 144/90 (108) 98 Room Air Sp02 EP Interpretation: reviewed, normal General Appearance: well appearing, no apparent distress, alert Head: normocephalic, atraumatic Eyes: bilateral eye PERRL, bilateral eye EOMI ENT: hearing grossly normal, normal pharynx Neck: full range of motion, supple, no meningismus Respiratory: chest non-tender, lungs clear, normal breath sounds Cardiovascular #1: regular rate, rhythm, no murmur Gastrointestinal: normal bowel sounds, no mass, no organomegaly, no bruit, non- distended, tenderness - Mild epigastric Musculoskeletal: back normal, normal range of motion, gait/station normal Psychiatric: mood/affect normal Medical Decision Making Diagnostic Impression: Primary Impression: Abdominal pain of unknown etiology ER Course Patient presents with exacerbation of chronic abdominal pain. Abdominal exam is benign. Soft. No evidence of obstruction or acute abdomen. Will discharge home. Last Vital Signs Date Time Temp Pulse Resp B/P (MAP) Pulse Ox O2 Delivery O2 Flow Rate FiO2 10/02/19 21:43 98.8 106 20 144/90 (108) 98 Room Air Status: improved Disposition: HOME, SELF-CARE Condition: Stable Scripts Dicyclomine Hcl* (DICYCLOMINE HCL*) 10 Mg Capsule 10 MG ORAL TID, #30 CAP Prov: Akhil Kuhn MD 10/02/19 Patient Instructions: Abdominal Pain, Adult Additional Instructions: Follow-up with your doctor in 7 days. Return if symptoms worsen. Akhil Kuhn MD Oct 02, 2019 22:12
[2019-10-02] MEDS ORDERED: Morphine Sulfate 4mg/ml Inj (IV USE ONLY) IVP ONE (22:15)
[2019-10-02 22:40] VITALS: BP 136/88
[2019-10-02 22:45] VITALS: BP 144/90
== END 2019-10-02 22:45 | disposition home or self-care (01) ==
LOC: EMR 22:14
DX: R10.13 Epigastric pain (principal); I10 Essential (primary) hypertension; E11.9 Type 2 diabetes mellitus without complications; Z86.79 Personal history of other diseases of the circulatory system
CPT/HCPCS: 96374; 96375; J2270; J2405; Z7502; 99284

== ENCOUNTER 2019-11-10 17:23 | Emergency (ER) | payer MEDICAID ==
[~2019-11-10] VITALS: Ht 188 cm; Wt 76.2 kg
[~2019-11-10 17:23] MED LIST changes: +DICYCLOMINE HCL10 MG ORAL; +LOTENSIN20 MG ORAL
--- NOTE | 2019-11-10 17:43 | Emergency Room Report ---
History of Present Illness General Chief Complaint: Chest Pain Source: Patient Present Illness HPI Disclaimer: Please note that this report is being documented using DRAGON technology. This can lead to erroneous entry secondary to incorrect interpretation by the dictating instrument. HPI: 54-year-old male presents for evaluation of abdominal pain. Originally, the patient was triaged as complaining of "chest pain" however during my history and exam he now states it is more in the epigastrium and left upper quadrant. Pain began this morning though this is an ongoing issue for the patient having been seen here multiple times. He has had an EGD and colonoscopy and states he was scheduled for a cholecystectomy for biliary colic but this was postponed due to the COVID-19 pandemic. He reports a pressure in the epigastrium and lower chest that does not radiate. He did have some left shoulder and arm pain late last night and throughout the day today but now has resolved. Denies shortness of breath but complained that he had some mild nasal congestion earlier today that is now resolved. He denies sore throat, fever, cough, chills, diarrhea, diaphoresis. Patient states he intermittently vomits and this is an ongoing issue related to his chronic abdominal pain. Patient smokes cigarettes regularly. Has a history of diabetes and cardiovascular disease. States he has had a prior ME but denies stent placement. PMH: CAD, hypertension, regular smoker, diabetic PSH: Reviewed Allergies: Codeine, penicillin Social Hx: Daily tobacco use Allergies: Coded Allergies: CODEINE (Verified Allergy, Unknown, 08/14/18) PENICILLINS (Unverified Allergy, Unknown, 04/01/14) COVID-19 Screening Contact w/high risk pt: No Recent Travel to affected area: No Experienced COVID-19 symptoms?: No COVID-19 Testing performed SHRIMP PICKER: No Nursing Documentation-PMH Hx Cardiac Problems: Yes - H/O OF HEART ATTACK Hx Hypertension: Yes Hx Diabetes: Yes Hx Neurological Problems: Yes - Chronic Pain left-facial area Review of Systems All Other Systems: negative except mentioned in HPI Physical Exam Vital Signs Date Time Temp Pulse Resp B/P (MAP) Pulse Ox O2 Delivery O2 Flow Rate FiO2 11/10/19 17:33 98.4 100 20 99 Room Air General: Awake and alert, no acute distress HEENT: NC/AT. EOMI. Cardiovascular: RRR. S1 and S2 normal. No murmur appreciated Resp: Normal work of breathing. No cough, wheezing or crackles appreciated Abdomen: Abdomen is soft, nondistended. Mild tenderness palpation in the epigastrium and left upper quadrant without guarding. Negative Connell's. No tenderness in the lower quadrants or suprapubic region. No rebound. No masses appreciated. Skin: Intact. No abrasions, laceration or rash over the exposed skin MSK: Normal tone and bulk. Moving all extremities. No obvious deformity. Neuro: Awake and alert. Mentating appropriately. Medical Decision Making Diagnostic Impression: Primary Impression: Abdominal pain of unknown etiology Additional Impression: Chest pain ER Course 54-year-old male presents for evaluation of epigastric abdominal pain beginning this morning. This appears to be a chronic issue for the patient however differential also includes hepatitis, cholecystitis, pancreatitis, ACS, arrhythmia, pneumonia, pneumothorax among others. Review of chart shows patient has had multiple CT scans all of which have been interpreted as negative most recent on 09/03/19. Arrives with stable vital signs and does not appear to be any distress at this time. EKG shows sinus rhythm with no ischemic changes. 1900: Labs including cardiac enzymes and lipase and liver function studies are within normal limits. Chest x-ray unremarkable. Vital signs remained stable throughout the patient's emergency department stay. I discussed these lab findings with the patient he felt very reassured. I did offer him admission for chest pain work-up however the patient declined. 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 He was recently seen by his cash posting clerk and PMD as well and will call his PMD in the morning. Given the patient's close follow-up and that today 's presentation does appear more consistent with his prior visits for abdominal pain rather than new chest pain feel he is stable for outpatient follow-up but again I did offer him admission for monitoring overnight and ACS rule out given his risk factors but he again declined. We discussed strict return precautions and the need to follow-up with his social media marketing manager, PMD and clinical account specialist. He verbalized understanding with and agreement with this treatment plan. Laboratory Tests Test 11/10/19 17:40 11/10/19 18:30 White Blood Count 7.5 K/UL (4.8-10.8) Red Blood Count 4.58 M/UL (4.70-6.10) L Hemoglobin 12.5 G/DL (14.2-18.0) L Hematocrit 38.4 % (42.0-52.0) L Mean Corpuscular Volume 84 FL (80-99) Mean Corpuscular Hemoglobin 27.3 PG (27.0-31.0) Mean Corpuscular Hemoglobin Concent 32.6 G/DL (32.0-36.0) Red Cell Distribution Width 14.0 % (11.6-14.8) Platelet Count 322 K/UL (150-450) Mean Platelet Volume 6.3 FL (6.5-10.1) L Neutrophils (%) (Auto) 51.2 % (45.0-75.0) Lymphocytes (%) (Auto) 35.0 % (20.0-45.0) Monocytes (%) (Auto) 8.4 % (1.0-10.0) Eosinophils (%) (Auto) 4.3 % (0.0-3.0) H Basophils (%) (Auto) 1.1 % (0.0-2.0) Sodium Level 136 MMOL/L (136-145) Potassium Level 4.0 MMOL/L (3.5-5.1) Chloride Level 102 MMOL/L (98-107) Carbon Dioxide Level 24 MMOL/L (21-32) Anion Gap 10 mmol/L (5-15) Blood Urea Nitrogen 13 mg/dL (7-18) Creatinine 1.3 MG/DL (0.55-1.30) Estimated Glomerular Filtration Rate > 60 mL/min (>60) Glucose Level 153 MG/DL (74-106) H Calcium Level 9.1 MG/DL (8.5-10.1) Total Bilirubin 0.2 MG/DL (0.2-1.0) Aspartate Amino Transferase (AST) 13 U/L (15-37) L Alanine Aminotransferase (ALT) 15 U/L (12-78) Alkaline Phosphatase 91 U/L (46-116) Troponin I 0.000 ng/mL (0.000-0.056) Pro-B-Type Natriuretic Peptide 50 pg/mL (0-125) Total Protein 7.5 G/DL (6.4-8.2) Albumin 3.7 G/DL (3.4-5.0) Globulin 3.8 g/dL Albumin/Globulin Ratio 1.0 (1.0-2.7) Lipase 350 U/L (73-393) Urine Opiates Screen Negative (NEGATIVE) Urine Barbiturates Screen Negative (NEGATIVE) Phencyclidine (PCP) Screen Negative (NEGATIVE) Urine Amphetamines Screen Negative (NEGATIVE) Urine Benzodiazepines Screen Negative (NEGATIVE) Urine Cocaine Screen Negative (NEGATIVE) Urine Marijuana (THC) Screen Negative (NEGATIVE) EKG Diagnostic Results EKG Time: 17:29 Rate: normal Rhythm: NSR ST Segments: no acute changes Other Impression Sinus rhythm, normal axis, normal intervals, no ST segment changes. Rhythm Strip Diag. Results Rhythm Strip Time: 17:29 EP Interpretation: yes Rate: 88 Rhythm: NSR, no PVC's, no ectopy Chest X-Ray Diagnostic Results Chest X-Ray Diagnostic Results : Chest X-Ray Ordered: Yes # of Views/Limited/Complete: 1 View Indication: Chest Pain EP Interpretation: Yes Interpretation: no consolidation, no effusion, no pneumothorax, no acute cardiopulmonary disease Impression: No acute disease Electronically Signed by: Electronically signed by Dr. Jesus Flynn Last Vital Signs Date Time Temp Pulse Resp B/P (MAP) Pulse Ox O2 Delivery O2 Flow Rate FiO2 11/10/19 17:33 98.4 100 20 99 Room Air Disposition: HOME, SELF-CARE Condition: Stable Referrals: [facility],REFERRING (PCP) Jesus Flynn MD Nov 10, 2019 17:42
[2019-11-10 17:51] VITALS: BP 141/94
[2019-11-10 17:59] LABS: BASOPHILS % (AUTO) 1.1 % (0.0-2.0); EOSINOPHILS % (AUTO) 4.3 % (0.0-3.0); HEMATOCRIT 38.4 % (42.0-52.0); HEMOGLOBIN 12.5 G/DL (14.2-18.0); MEAN CORPUSCULAR VOLUME 84 FL (80-99); MONOCYTES % (AUTO) 8.4 % (1.0-10.0); NEUTROPHILS % (AUTO) 51.2 % (45.0-75.0); PLATELET COUNT 322 K/UL (150-450); RED BLOOD COUNT 4.58 M/UL (4.70-6.10); WHITE BLOOD COUNT 7.5 K/UL (4.8-10.8)
[2019-11-10 18:29] LABS: ANION GAP 10 mmol/L (5-15); BLOOD UREA NITROGEN 13 mg/dL (7-18); CALCIUM 9.1 MG/DL (8.5-10.1); CARBON DIOXIDE 24 MMOL/L (21-32); CHLORIDE 102 MMOL/L (98-107); CREATININE 1.3 MG/DL (0.55-1.30); SODIUM 136 MMOL/L (136-145)
[2019-11-10 18:42] LABS: ALANINE AMINOTRANSFERASE 15 U/L (12-78); ALBUMIN 3.7 G/DL (3.4-5.0); ALKALINE PHOSPHATASE 91 U/L (46-116); ASPARTATE AMINO TRANSFERASE 13 U/L (15-37); BILIRUBIN,TOTAL 0.2 MG/DL (0.2-1.0)
[2019-11-10 19:18] VITALS: BP 139/89
[2019-11-10 19:25] VITALS: BP 139/89
--- NOTE | 2019-11-11 09:07 | Diagnostic Imaging Report ---
Indication: Chest pain Technique: One view of the chest Comparison: 12/29/2018 Findings: Lungs and pleural spaces are clear. Heart size is normal. No significant change Impression: No acute process
== END 2019-11-10 19:25 | disposition home or self-care (01) ==
LOC: EMR 17:36
DX: R07.9 Chest pain, unspecified (principal); R10.9 Unspecified abdominal pain; E11.9 Type 2 diabetes mellitus without complications; I10 Essential (primary) hypertension; Z88.0 Allergy status to penicillin; Z88.6 Allergy status to analgesic agent; I25.10 Atherosclerotic heart disease of native coronary artery without angina pectoris; I11.9 Hypertensive heart disease without heart failure; F17.200 Nicotine dependence, unspecified, uncomplicated; I25.2 Old myocardial infarction
CPT/HCPCS: 36415; 71045; 80053; 80307; 83690; 83880; 84484; 85025; 93005; Z7502; 99284

== ENCOUNTER → 2020-01-09 | Emergency (ER) | payer MEDICAID ==
[~2020-01-09] VITALS: Ht 188 cm; Wt 72.6 kg
[~2020-01-09] MED LIST changes: +Aspirin Baby 81mg ORAL ONE; +IBUPROFEN600 M1 ORAL; +LIDOCAINE700 M1 TP; +Morphine Sulfate 4mg/ml Inj (IV USE ONLY) IVP ONE
[2020-01-09 20:07] VITALS: BP 129/60
[2020-01-09 20:42] LABS: BASOPHILS % (AUTO) 2.3 % (0.0-2.0); EOSINOPHILS % (AUTO) 4.9 % (0.0-3.0); HEMATOCRIT 42.1 % (42.0-52.0); HEMOGLOBIN 13.5 G/DL (14.2-18.0); LYMPHOCYTES % (AUTO) 45.4 % (20.0-45.0); MEAN CORPUSCULAR VOLUME 85 FL (80-99); MONOCYTES % (AUTO) 5.7 % (1.0-10.0); NEUTROPHILS % (AUTO) 41.7 % (45.0-75.0); PLATELET COUNT 372 K/UL (150-450); RED BLOOD COUNT 4.92 M/UL (4.70-6.10); RED CELL DISTRIBUTION WIDTH 14.3 % (11.6-14.8); WHITE BLOOD COUNT 6.9 K/UL (4.8-10.8)
[2020-01-09 20:54] LABS: APPEARANCE,URINE CLEAR; BILIRUBIN, URINE NEGATIVE (NEGATIVE); COLOR,URINE YELLOW; GLUCOSE, URINE (UA) NEGATIVE (NEGATIVE); KETONES,URINE 1+ (NEGATIVE); LEUKOCYTE ESTERASE ,URINE 1+ (NEGATIVE); NITRITE,URINE NEGATIVE (NEGATIVE); PH,URINE 5 (4.5-8.0); PROTEIN,URINE 3+ (NEGATIVE); UROBILINOGEN,URINE 1 MG/DL (0.0-1.0)
--- NOTE | 2020-01-09 20:55 | Emergency Room Report ---
History of Present Illness General Chief Complaint: Pain Source: Patient Present Illness HPI 54-year-old male with a history of hyperlipidemia, diabetes, CAD here with left- sided chest pain. Patient says that for the past 3 days he has been having crushing left-sided and substernal chest pain that radiates down his left arm and up into his neck. Patient says that he feels it all time and it is slightly worse on exertion. Not worse with deep inspiration. Patient says that he had an OH several years ago and believes that he had stents placed at [facility]. However he is unsure. Patient is also scheduled to get a cholecystectomy in about 2 weeks from today. No headaches, vision change, diaphoresis, shortness of breath, palpitations, back pain, abdominal pain, nausea, vomiting, diarrhea, dysuria. 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 Nursing Documentation-PMH Hx Cardiac Problems: Yes - H/O OF HEART ATTACK Hx Hypertension: Yes Hx Diabetes: Yes Hx Neurological Problems: Yes - Chronic Pain left-facial area Review of Systems All Other Systems: negative except mentioned in HPI Physical Exam Vital Signs Date Time Temp Pulse Resp B/P (MAP) Pulse Ox O2 Delivery O2 Flow Rate FiO2 01/09/20 19:56 98.2 98 18 129/60 (83) 97 Room Air Sp02 EP Interpretation: reviewed, normal General Appearance: no apparent distress, alert, non-toxic Head: normocephalic, atraumatic Eyes: bilateral eye normal inspection, bilateral eye PERRL ENT: hearing grossly normal, normal pharynx, no angioedema, normal voice Neck: full range of motion, supple/symm/no masses Respiratory: chest non-tender, lungs clear, normal breath sounds, speaking full sentences Cardiovascular #1: regular rate, rhythm, no edema Cardiovascular #2: 2+ carotid (R), 2+ carotid (L), 2+ radial (R), 2+ radial (L), 2+ dorsalis pedis (R), 2+ dorsalis pedis (L) Gastrointestinal: normal bowel sounds, non tender, soft, non-distended, no guarding, no rebound Rectal: deferred Genitourinary: normal inspection, no CVA tenderness Musculoskeletal: back normal, normal range of motion, calf tenderness, gait/station normal, non-tender Neurologic: alert, motor strength/tone normal, oriented x3, sensory intact, responsive, speech normal Psychiatric: judgement/insight normal, memory normal, mood/affect normal, no suicidal/homicidal ideation Lymphatic: no adenopathy Medical Decision Making Diagnostic Impression: Primary Impression: Chest pain ER Course EK bpm. Normal sinus rhythm. Normal axis. No ectopy. No ST or T wave abnormalities. Chest x-ray: No infiltrate/effusion. Mediastinum within normal limits 54-year-old male with history of diabetes, hyperlipidemia, CAD status post stent placement here with chest pain. Patient was given aspirin and morphine on arrival to the emergency department. He had an elevated heart score due to his history and concerning story. Heart score 5. Chest x-ray, EKG, labs unremarkable including a normal troponin. Patient will be admitted to telemetry observation for chest pain suspicious of CAD related angina. Currently waiting insurance approval. Signed out to oncoming physician. Last Vital Signs Date Time Temp Pulse Resp B/P (MAP) Pulse Ox O2 Delivery O2 Flow Rate FiO2 01/09/20 20:07 98.2 98 18 129/60 97 Room Air Referrals: NON PHYSICIAN (PCP) Dawood Jay M.D. Jan 09, 2020 20:55
--- NOTE | 2020-01-09 21:00 | Diagnostic Imaging Report ---
EXAM: XR Chest, 1 View CLINICAL HISTORY: CP TECHNIQUE: Frontal view of the chest. COMPARISON: 12/05/2019 FINDINGS: Lungs: Unremarkable. No consolidation. Pleural space: Unremarkable. No pneumothorax. Heart: Unremarkable. No cardiomegaly. Mediastinum: Unremarkable. Bones/joints: No acute abnormality IMPRESSION: 1. No acute cardiopulmonary disease. 2. If there is continued concern recommend frontal and lateral chest radiographs or CT.
[2020-01-09 21:07] LABS: ALANINE AMINOTRANSFERASE 19 U/L (12-78); ALBUMIN 4.5 G/DL (3.4-5.0); ALBUMIN/GLOBULIN RATIO 0.9 (1.0-2.7); ALKALINE PHOSPHATASE 89 U/L (46-116); ASPARTATE AMINO TRANSFERASE 14 U/L (15-37); BILIRUBIN,TOTAL 0.2 MG/DL (0.2-1.0); BLOOD UREA NITROGEN 18 mg/dL (7-18); CALCIUM 10.1 MG/DL (8.5-10.1); CARBON DIOXIDE 26 MMOL/L (21-32); CHLORIDE 102 MMOL/L (98-107); CREATININE 1.4 MG/DL (0.55-1.30); POTASSIUM 4.5 MMOL/L (3.5-5.1); SODIUM 139 MMOL/L (136-145)
--- NOTE | 2020-01-09 21:10 | Diagnostic Imaging Report ---
EXAM: XR Abdomen, 2 Views CLINICAL HISTORY: ABD PAIN TECHNIQUE: Frontal view of the abdomen/pelvis with upright view of the abdomen. COMPARISON: 10/23/18 FINDINGS: Intraperitoneal space: No free air. Gastrointestinal tract: Unremarkable. No dilation. Bones/joints: Unremarkable. IMPRESSION: Unremarkable abdominal x-rays.
[2020-01-09 22:43] VITALS: BP 131/71
[2020-01-10 00:21] VITALS: BP 129/68
== END | disposition short-term general hospital (02) ==
LOC: EMR 20:20
DX: R07.9 Chest pain, unspecified (principal); I10 Essential (primary) hypertension; E11.9 Type 2 diabetes mellitus without complications; Z79.4 Long term (current) use of insulin; Z79.84 Long term (current) use of oral hypoglycemic drugs; I25.2 Old myocardial infarction; Z88.5 Allergy status to narcotic agent; Z88.0 Allergy status to penicillin
CPT/HCPCS: 36415; 71045; 74018; 80053; 81003; 83690; 84484; 85025; 85610; 85730; 93005; 96374; J2270; Z7502; 99284

== ENCOUNTER 2020-01-15 23:21 | Emergency (ER) | payer MEDICAID ==
[~2020-01-15] VITALS: Ht 188 cm; Wt 73.0 kg
[~2020-01-15 23:21] MED LIST changes: -Aspirin Baby 81mg ORAL ONE; +FAMOTIDINE20 MG ORAL; -Morphine Sulfate 4mg/ml Inj (IV USE ONLY) IVP ONE; +ZOFRAN4 MG ORAL
[2020-01-15 23:35] VITALS: BP 145/74
--- NOTE | 2020-01-15 23:59 | Emergency Room Report ---
History of Present Illness General Chief Complaint: Abdominal Pain Source: Patient Present Illness HPI Patient presents with 3 days of severe epigastric pain with nausea without vomiting or diarrhea. The last was in his bowels 4 days ago. He is an insulin- dependent diabetic and he believes his sugars were fine. He was evaluated earlier today but had to leave because his sister unexpectedly today. He never had this problem before. States that sharp and aching nonradiating. He was told this might be related to gallstones. He was seen in transfer to [facility] [place] for cardiac work-up. This morning the decision was made to admit him to the hospital for recurrent abdominal pain that was not controlled. He was felt to have high risk. He is ended up signing AGAINST MEDICAL ADVICE to care for his sister. No fevers, chills, sore throat, chest pain, palpitations, vomiting, diarrhea, dysuria, shortness of breath, joint pain, rashes, visual changes, dizziness, headache. Not sure how his sugars are. Allergies: Coded Allergies: CODEINE (Verified Allergy, Unknown, 08/14/18) PENICILLINS (Unverified Allergy, Unknown, 04/01/14) COVID-19 Screening Contact w/high risk pt: No Recent Travel to affected area: No Experienced COVID-19 symptoms?: No COVID-19 Testing performed VP OF MARKETING: Yes - 2-3 weeks ago COVID-19 Screening: Negative COVID-19 COVID-19 Testing Source: [facility] [place] Patient History Past Medical History: see triage record Social History: Reports: smoking; Denies: alcohol use, drug use Social History Narrative Lives by himself, disabled Reviewed Nursing Documentation: PMH: Agreed; PSxH: Agreed Nursing Documentation-PMH Hx Cardiac Problems: Yes - H/O OF HEART ATTACK Hx Hypertension: Yes Hx Diabetes: Yes Hx Gastrointestinal Problems: Yes - gallbladder (unknown diagnosis) Hx Neurological Problems: Yes - Chronic Pain left-facial area Review of Systems All Other Systems: negative except mentioned in HPI Physical Exam Vital Signs Date Time Temp Pulse Resp B/P (MAP) Pulse Ox O2 Delivery O2 Flow Rate FiO2 01/15/20 23:31 98.6 115 22 141/87 (105) 95 Room Air Sp02 EP Interpretation: reviewed, normal General Appearance: well appearing, no apparent distress, GCS 15, non-toxic, other - subdued and in pain Head: normocephalic Eyes: bilateral eye normal inspection, bilateral eye PERRL, bilateral eye EOMI ENT: moist mucus membranes Neck: supple Respiratory: lungs clear, normal breath sounds Cardiovascular #1: regular rate, rhythm Cardiovascular #2: 2+ radial (R) Gastrointestinal: normal inspection, no mass, non-distended, no guarding, no rebound, tenderness - epigastric, decreased bowel sounds Genitourinary: no CVA tenderness Musculoskeletal: back normal, normal range of motion, gait/station normal Neurologic: alert, oriented x3, grossly normal Psychiatric: depressed affect Skin: no rash, warm/dry Medical Decision Making Diagnostic Impression: Primary Impression: Epigastric pain Additional Impressions: Renal insufficiency Insulin dependent diabetes mellitus Leukocytosis Qualified Codes: D72.829 - Elevated white blood cell count, unspecified ER Course Patient presents with severe epigastric pain with history of recent work-up for gallstones. Differential includes cholecystitis, pancreatitis, gastritis, peptic ulcer disease, acute myocardial infarction amongst others. Patient evaluated with EKG, chest x-ray and labs. Patient treated with IV hydration, Reglan, Benadryl, Pepcid and morphine. He is a complicated patient with comorbidities and may need hospitalization. EKG no injury. CT abd/pelvis from AM reviewed. Leukocytosis, no left shift. Renal insufficiency. Pain improved. IV hydration continued. Discussed with Dr. Paulino who accepts in transfer to [facility] [place]. AM accucheck 112. Improved pain and resting. Laboratory Tests Test 01/15/20 23:45 01/15/20 23:56 White Blood Count 13.3 K/UL (4.8-10.8) H Red Blood Count 4.71 M/UL (4.70-6.10) Hemoglobin 13.0 G/DL (14.2-18.0) L Hematocrit 38.5 % (42.0-52.0) L Mean Corpuscular Volume 82 FL (80-99) Mean Corpuscular Hemoglobin 27.7 PG (27.0-31.0) Mean Corpuscular Hemoglobin Concent 33.8 G/DL (32.0-36.0) Red Cell Distribution Width 13.3 % (11.6-14.8) Platelet Count 349 K/UL (150-450) Mean Platelet Volume 5.3 FL (6.5-10.1) L Neutrophils (%) (Auto) 65.0 % (45.0-75.0) Lymphocytes (%) (Auto) 24.2 % (20.0-45.0) Monocytes (%) (Auto) 7.2 % (1.0-10.0) Eosinophils (%) (Auto) 0.5 % (0.0-3.0) Basophils (%) (Auto) 3.1 % (0.0-2.0) H Prothrombin Time 12.0 SEC (9.30-11.50) H Prothrombin Time INR 1.1 (0.9-1.1) Activated Partial Thromboplast Time 29 SEC (23-33) Urine Color Yellow Urine Appearance Clear Urine pH 5 (4.5-8.0) Urine Specific [place] 1.025 (1.005-1.035) Urine Protein 3+ (NEGATIVE) H Urine Glucose (UA) Negative (NEGATIVE) Urine Ketones 2+ (NEGATIVE) H Urine Blood Negative (NEGATIVE) Urine Nitrite Negative (NEGATIVE) Urine Bilirubin Negative (NEGATIVE) Urine Urobilinogen 1 MG/DL (0.0-1.0) H Urine Leukocyte Esterase 1+ (NEGATIVE) H Urine RBC 0 /HPF (0 - 0) Urine WBC 0-2 /HPF (0 - 0) Urine Squamous Epithelial Cells Few /LPF (NONE/OCC) Urine Calcium Oxalate Crystals Moderate /LPF (NONE) Urine Bacteria Few /HPF (NONE) Sodium Level 136 MMOL/L (136-145) Potassium Level 4.0 MMOL/L (3.5-5.1) Chloride Level 98 MMOL/L (98-107) Carbon Dioxide Level 27 MMOL/L (21-32) Anion Gap 11 mmol/L (5-15) Blood Urea Nitrogen 30 mg/dL (7-18) H Creatinine 1.9 MG/DL (0.55-1.30) H Estimated Glomerular Filtration Rate 44.7 mL/min (>60) Glucose Level 164 MG/DL (74-106) H Calcium Level 10.2 MG/DL (8.5-10.1) H Total Bilirubin 0.4 MG/DL (0.2-1.0) Aspartate Amino Transferase (AST) 22 U/L (15-37) Alanine Aminotransferase (ALT) 24 U/L (12-78) Alkaline Phosphatase 89 U/L (46-116) Total Creatine Kinase 698 U/L (26-308) H Troponin I 0.000 ng/mL (0.000-0.056) Total Protein 7.7 G/DL (6.4-8.2) Albumin 4.4 G/DL (3.4-5.0) Globulin 3.3 g/dL Albumin/Globulin Ratio 1.3 (1.0-2.7) Lipase 120 U/L (73-393) Urine Opiates Screen Negative (NEGATIVE) Urine Barbiturates Screen Negative (NEGATIVE) Phencyclidine (PCP) Screen Negative (NEGATIVE) Urine Amphetamines Screen Negative (NEGATIVE) Urine Benzodiazepines Screen Negative (NEGATIVE) Urine Cocaine Screen Negative (NEGATIVE) Urine Marijuana (THC) Screen Negative (NEGATIVE) Serum Alcohol < 3 mg/dL POC Whole Blood Glucose 162 MG/DL (74-106) H Microbiology Date/Time Source Procedure Growth Status 01/16/20 00:02 Nasopharynx SARS-CoV-2 RdRp Gene Assay - Final Complete EKG Diagnostic Results Rate: tachycardiac Rhythm: NSR ST Segments: no acute changes Rhythm Strip Diag. Results EP Interpretation: yes Rhythm: no PVC's, no ectopy, other - Sinus tachycardia Chest X-Ray Diagnostic Results Chest X-Ray Diagnostic Results : Chest X-Ray Ordered: Yes - reviewed from AM # of Views/Limited/Complete: 1 View Indication: Other EP Interpretation: Yes Interpretation: no consolidation, no effusion, no pneumothorax Impression: No acute disease Electronically Signed by: Electronically signed by Mathieu Duran MD CT/MRI/US Diagnostic Results CT/MRI/US Diagnostic Results : Imaging Test Ordered: Ultrasound from AM Impression Small adherent stones versus polyps in the gallbladder Lower pole left intra-renal stone no hydronephrosis. Mildly prominent pancreatic duct of undetermined significance. Right renal cyst Last Vital Signs Date Time Temp Pulse Resp B/P (MAP) Pulse Ox O2 Delivery O2 Flow Rate FiO2 01/16/20 08:13 97.8 92 16 127/81 100 Room Air 99 Status: improved Disposition: SHORT-TERM HOSP Condition: Serious Referrals: [facility] (PCP) Mathieu Duran MD Jan 15, 2020 23:59
[2020-01-16] MEDS ORDERED: Metoclopramide 10mg/2ml Inj IVP ONE
[2020-01-16] MEDS ORDERED: Morphine Sulfate 4mg/ml Inj (IV USE ONLY) IVP ONE
[2020-01-16] MEDS ORDERED: DiphenhydrAMINE 50mg/ml Inj IVP ONE
[2020-01-16] MEDS: LR 1000ml 1,000 ML IV SCH ×2 (00:02→08:12)
[2020-01-16 00:22] LABS: BASOPHILS % (AUTO) 3.1 % (0.0-2.0); EOSINOPHILS % (AUTO) 0.5 % (0.0-3.0); HEMATOCRIT 38.5 % (42.0-52.0); LYMPHOCYTES % (AUTO) 24.2 % (20.0-45.0); MEAN CORPUSCULAR VOLUME 82 FL (80-99); MONOCYTES % (AUTO) 7.2 % (1.0-10.0); PLATELET COUNT 349 K/UL (150-450); RED BLOOD COUNT 4.71 M/UL (4.70-6.10); RED CELL DISTRIBUTION WIDTH 13.3 % (11.6-14.8); WHITE BLOOD COUNT 13.3 K/UL (4.8-10.8)
[2020-01-16 00:34] LABS: APPEARANCE,URINE CLEAR; BILIRUBIN, URINE NEGATIVE (NEGATIVE); GLUCOSE, URINE (UA) NEGATIVE (NEGATIVE); KETONES,URINE 2+ (NEGATIVE); LEUKOCYTE ESTERASE ,URINE 1+ (NEGATIVE); NITRITE,URINE NEGATIVE (NEGATIVE); PH,URINE 5 (4.5-8.0); PROTEIN,URINE 3+ (NEGATIVE); UROBILINOGEN,URINE 1 MG/DL (0.0-1.0)
[2020-01-16 00:44] LABS: ANION GAP 11 mmol/L (5-15); BLOOD UREA NITROGEN 30 mg/dL (7-18); CALCIUM 10.2 MG/DL (8.5-10.1); CARBON DIOXIDE 27 MMOL/L (21-32); CHLORIDE 98 MMOL/L (98-107); CREATININE 1.9 MG/DL (0.55-1.30); SODIUM 136 MMOL/L (136-145)
[2020-01-16 00:48] LABS: ALANINE AMINOTRANSFERASE 24 U/L (12-78); ALBUMIN 4.4 G/DL (3.4-5.0); ALBUMIN/GLOBULIN RATIO 1.3 (1.0-2.7); ALKALINE PHOSPHATASE 89 U/L (46-116); ASPARTATE AMINO TRANSFERASE 22 U/L (15-37); BILIRUBIN,TOTAL 0.4 MG/DL (0.2-1.0); CREATINE KINASE 698 U/L (26-308)
[2020-01-16 00:55] LABS: INR 1.1 (0.9-1.1)
[2020-01-16 00:56] LABS: COLOR,URINE YELLOW
[2020-01-16 02:49] VITALS: BP 132/68
[2020-01-16 05:09] VITALS: BP 129/83
[2020-01-16 07:53] VITALS: BP 127/81
[2020-01-16 08:13] VITALS: BP 127/81
--- NOTE | 2020-01-18 15:02 | Cardiology Report ---
APPROVED REPORT EKG Measurement Heart [id number] <Conclusion> Sinus tachycardia Otherwise normal ECG
== END 2020-01-16 08:13 | disposition short-term general hospital (02) ==
LOC: EMR 23:52
DX: R10.13 Epigastric pain (principal); N28.9 Disorder of kidney and ureter, unspecified; E11.9 Type 2 diabetes mellitus without complications; D72.829 Elevated white blood cell count, unspecified; I10 Essential (primary) hypertension; F17.200 Nicotine dependence, unspecified, uncomplicated; Z79.4 Long term (current) use of insulin; Z88.5 Allergy status to narcotic agent; Z88.0 Allergy status to penicillin
CPT/HCPCS: 36415; 80053; 80307; 81003; 82550; 82962; 83690; 84484; 85025; 85610; 85730; 93005; 96361; 96374; 96375; G0480; J1200; J2270; J2765; J7030; J7120; S0028; U0002; Z7502; 99285

== ENCOUNTER 2020-04-20 22:29 | Emergency (ER) | payer MEDICAID ==
[~2020-04-20] VITALS: Ht 188 cm; Wt 72.6 kg
[2020-04-20] MEDS ORDERED: Mylanta II UD 30ml ORAL ONE (23:00)
--- NOTE | 2020-04-20 23:05 | NUR ---
ED Nurse Note: Pt walked into the ed due to Abd pain started today. pt stated he also has a chronic neck pain. according tot he pt he had cholecystectomy x 3 month ago; the pain has been gone after the surgery until today. No N/V and chills and . pt has diarrhea x days ago. monitor on; Vitals are stable, IV started; blood drawn and sent to the lab. We will keep monitoring the pt
--- NOTE | 2020-04-20 23:08 | Emergency Room Report ---
History of Present Illness General Chief Complaint: Abdominal Pain Source: Patient Present Illness HPI Patient started having abdominal and left flank pain that began 2 days ago. On Sunday he was having diarrhea. There is no vomiting or pain at that time. He started having discomfort yesterday. This morning he woke up with severe left- sided neck pain and flank pain. He feels it more in his stomach at this time. He is taken Tylenol 2 times. Also he took aspirin and is diabetic medications. Patient denies dysuria. The pain was more severe this morning. Right now he rates it 6/10. The neck pain he feels is related to some lumbar or spinal issues. He took Tylenol 2 hours ago. The patient is status post cholecystectomy 3 months ago. He was seen in December for abdominal pain but signed out AGAINST MEDICAL ADVICE at that time. He has no known exposure to Covid positive contacts. No sore throat, palpitations, dysuria, shortness of breath, joint pain, rashes, depression, anxiety, visual changes, dizziness, headache. 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 Patient History Past Medical History: see triage record Social History: Reports: smoking Social History Narrative From home Reviewed Nursing Documentation: PMH: Agreed; PSxH: Agreed Nursing Documentation-PMH Past Medical History: No History, Except For Hx Cardiac Problems: Yes - H/O OF HEART ATTACK Hx Hypertension: Yes Hx Diabetes: Yes Hx Gastrointestinal Problems: Yes - gallbladder (unknown diagnosis), cholecystectomy Hx Neurological Problems: Yes - Chronic Pain left-facial area Review of Systems All Other Systems: negative except mentioned in HPI Physical Exam Vital Signs Date Time Temp Pulse Resp B/P (MAP) Pulse Ox O2 Delivery O2 Flow Rate FiO2 04/20/20 22:37 98.4 97 18 129/91 (104) 97 Room Air Sp02 EP Interpretation: reviewed, normal General Appearance: well appearing, no apparent distress, GCS 15 Head: normocephalic Eyes: bilateral eye normal inspection, bilateral eye PERRL, bilateral eye EOMI ENT: moist mucus membranes Neck: supple Respiratory: lungs clear, normal breath sounds Cardiovascular #1: regular rate, rhythm Cardiovascular #2: 2+ radial (R) Gastrointestinal: normal inspection, normal bowel sounds, no mass, non- distended, no guarding, no rebound, tenderness - Reported left flank and left lower chest Genitourinary: no CVA tenderness - Per se Musculoskeletal: back normal, normal range of motion, gait/station normal Neurologic: alert, oriented x3, grossly normal Psychiatric: mood/affect normal Skin: no rash, warm/dry Medical Decision Making Diagnostic Impression: Primary Impression: Abdominal pain Qualified Codes: R10.9 - Unspecified abdominal pain Additional Impressions: Flank pain Neck pain ER Course Labs with normal white count. CMP normal. Patient presents with left flank left neck pain after a bout of diarrhea 2 days ago. Differential includes acute myocardial infarction, unstable angina, gastroenteritis, gastritis, type reticulitis amongst others. Patient is somewhat higher risk with history of diabetes. Evaluation with EKG, chest x-ray and labs. Patient treated and treated with IV hydration, Pepcid and Mylanta. He drove himself here. He took a dose of Tylenol 2 hours ago. EKG normal sinus rhythm normal EKG rate 83. Chest x-ray with some COPD normal heart size. Urinalysis clear. Coags normal. Pain unchanged with tx. Toradol ordered. Pain improved with Toradol. Discussed findings with patient and possible etiologies. No medical emergency apparent at this time. Told to follow up with his doctor and return if worse. Laboratory Tests Test 04/20/20 23:10 White Blood Count 7.1 K/UL (4.8-10.8) Red Blood Count 4.73 M/UL (4.70-6.10) Hemoglobin 13.5 G/DL (14.2-18.0) L Hematocrit 38.3 % (42.0-52.0) L Mean Corpuscular Volume 81 FL (80-99) Mean Corpuscular Hemoglobin 28.6 PG (27.0-31.0) Mean Corpuscular Hemoglobin Concent 35.4 G/DL (32.0-36.0) Red Cell Distribution Width 14.1 % (11.6-14.8) Platelet Count 340 K/UL (150-450) Mean Platelet Volume 6.0 FL (6.5-10.1) L Neutrophils (%) (Auto) 43.8 % (45.0-75.0) L Lymphocytes (%) (Auto) 45.8 % (20.0-45.0) H Monocytes (%) (Auto) 5.4 % (1.0-10.0) Eosinophils (%) (Auto) 3.4 % (0.0-3.0) H Basophils (%) (Auto) 1.6 % (0.0-2.0) Prothrombin Time 11.6 SEC (9.30-11.50) H Prothrombin Time INR 1.1 (0.9-1.1) Activated Partial Thromboplast Time 27 SEC (23-33) Urine Color Yellow Urine Appearance Clear Urine pH 5 (4.5-8.0) Urine Specific [place] 1.025 (1.005-1.035) Urine Protein 3+ (NEGATIVE) H Urine Glucose (UA) Negative (NEGATIVE) Urine Ketones Negative (NEGATIVE) Urine Blood Negative (NEGATIVE) Urine Nitrite Negative (NEGATIVE) Urine Bilirubin Negative (NEGATIVE) Urine Urobilinogen 1 MG/DL (0.0-1.0) H Urine Leukocyte Esterase 1+ (NEGATIVE) H Urine RBC 0-2 /HPF (0 - 0) H Urine WBC 0-2 /HPF (0 - 0) Urine Squamous Epithelial Cells None /LPF (NONE/OCC) Urine Bacteria None /HPF (NONE) Sodium Level 137 MMOL/L (136-145) Potassium Level 4.1 MMOL/L (3.5-5.1) Chloride Level 104 MMOL/L (98-107) Carbon Dioxide Level 28 MMOL/L (21-32) Anion Gap 5 mmol/L (5-15) Blood Urea Nitrogen 12 mg/dL (7-18) Creatinine 1.3 MG/DL (0.55-1.30) Estimated Glomerular Filtration Rate > 60 mL/min (>60) Glucose Level 101 MG/DL (74-106) Calcium Level 9.1 MG/DL (8.5-10.1) Total Bilirubin 0.2 MG/DL (0.2-1.0) Aspartate Amino Transferase (AST) 15 U/L (15-37) Alanine Aminotransferase (ALT) 24 U/L (12-78) Alkaline Phosphatase 108 U/L (46-116) Total Creatine Kinase 169 U/L (26-308) Troponin I 0.000 ng/mL (0.000-0.056) Total Protein 7.7 G/DL (6.4-8.2) Albumin 3.9 G/DL (3.4-5.0) Globulin 3.8 g/dL Albumin/Globulin Ratio 1.0 (1.0-2.7) Lipase 288 U/L (73-393) EKG Diagnostic Results Rate: normal Rhythm: NSR ST Segments: no acute changes Rhythm Strip Diag. Results EP Interpretation: yes Rhythm: NSR, no PVC's, no ectopy Chest X-Ray Diagnostic Results Chest X-Ray Diagnostic Results : Chest X-Ray Ordered: Yes # of Views/Limited/Complete: 1 View Indication: Chest Pain EP Interpretation: Yes Interpretation: no consolidation, no effusion, no pneumothorax Impression: No acute disease Last Vital Signs Date Time Temp Pulse Resp B/P (MAP) Pulse Ox O2 Delivery O2 Flow Rate FiO2 04/21/20 01:15 98.1 82 19 132/72 98 Room Air Status: improved Disposition: HOME, SELF-CARE Condition: Improved [facility]errals: [facility] (PCP) Mathieu Duran MD Apr 20, 2020 23:08
[2020-04-20 23:10] VITALS: BP 129/89
[2020-04-20 23:34] LABS: APPEARANCE,URINE CLEAR; BILIRUBIN, URINE NEGATIVE (NEGATIVE); GLUCOSE, URINE (UA) NEGATIVE (NEGATIVE); KETONES,URINE NEGATIVE (NEGATIVE); LEUKOCYTE ESTERASE ,URINE 1+ (NEGATIVE); NITRITE,URINE NEGATIVE (NEGATIVE); PH,URINE 5 (4.5-8.0); PROTEIN,URINE 3+ (NEGATIVE); UROBILINOGEN,URINE 1 MG/DL (0.0-1.0)
[2020-04-20 23:38] LABS: BASOPHILS % (AUTO) 1.6 % (0.0-2.0); EOSINOPHILS % (AUTO) 3.4 % (0.0-3.0); HEMATOCRIT 38.3 % (42.0-52.0); HEMOGLOBIN 13.5 G/DL (14.2-18.0); LYMPHOCYTES % (AUTO) 45.8 % (20.0-45.0); MEAN CORPUSCULAR VOLUME 81 FL (80-99); MONOCYTES % (AUTO) 5.4 % (1.0-10.0); NEUTROPHILS % (AUTO) 43.8 % (45.0-75.0); PLATELET COUNT 340 K/UL (150-450); RED BLOOD COUNT 4.73 M/UL (4.70-6.10); RED CELL DISTRIBUTION WIDTH 14.1 % (11.6-14.8); WHITE BLOOD COUNT 7.1 K/UL (4.8-10.8)
[2020-04-20 23:39] LABS: COLOR,URINE YELLOW
[2020-04-20 23:43] LABS: INR 1.1 (0.9-1.1)
[2020-04-20 23:47] LABS: ANION GAP 5 mmol/L (5-15); BLOOD UREA NITROGEN 12 mg/dL (7-18); CALCIUM 9.1 MG/DL (8.5-10.1); CARBON DIOXIDE 28 MMOL/L (21-32); CHLORIDE 104 MMOL/L (98-107); CREATININE 1.3 MG/DL (0.55-1.30); POTASSIUM 4.1 MMOL/L (3.5-5.1); SODIUM 137 MMOL/L (136-145)
[2020-04-20 23:52] LABS: ALBUMIN 3.9 G/DL (3.4-5.0); ALKALINE PHOSPHATASE 108 U/L (46-116); ASPARTATE AMINO TRANSFERASE 15 U/L (15-37); BILIRUBIN,TOTAL 0.2 MG/DL (0.2-1.0); CREATINE KINASE 169 U/L (26-308)
[2020-04-21 00:02] LABS: ALANINE AMINOTRANSFERASE 24 U/L (12-78)
[2020-04-21] MEDS ORDERED: Ketorolac 30mg Inj IV ONE (00:15)
[2020-04-21 01:15] VITALS: BP 132/72
--- NOTE | 2020-04-21 01:15 | NUR ---
ER DISCHARGE NOTE: Patient is cleared to be discharged per ERMD, pt is aox4, on room air, with stable vital signs. pt was given dc instructions, pt was able to verbalize understanding, pt id band and iv site removed without complications. pt is able to ambulate with steady gait. pt took all belongings.
--- NOTE | 2020-04-21 13:58 | Diagnostic Imaging Report ---
Indication: Cough Technique: One view of the chest Comparison: 01/15/2020 Findings: Lungs and pleural spaces are clear. Heart size is normal. No significant change Impression: No acute process
== END 2020-04-21 01:15 | disposition home or self-care (01) ==
LOC: EMR 22:50
DX: R10.9 Unspecified abdominal pain (principal); M54.2 Cervicalgia; I11.9 Hypertensive heart disease without heart failure; E11.9 Type 2 diabetes mellitus without complications; Z90.49 Acquired absence of other specified parts of digestive tract; Z88.5 Allergy status to narcotic agent; Z88.0 Allergy status to penicillin
CPT/HCPCS: 36415; 71045; 80053; 81003; 82550; 83690; 84484; 85025; 85610; 85730; 93005; 96361; 96374; 96375; J1885; J7030; S0028; Z7502; 99284

== ENCOUNTER 2020-05-28 02:29 | Emergency (ER) | payer MEDICAID ==
[~2020-05-28] VITALS: Ht 188 cm; Wt 80.7 kg
--- NOTE | 2020-05-28 02:45 | NUR ---
ED Nurse Note: Patient came from home to the ED with complaints of headache and elevated blood pressure for the past week. Denies worst headache of his lifetime, denies N/V or blurry vision. Reports that his blood pressure at home was 110/109, took atenolol 25 mg twice today. Aox4.
[2020-05-28 02:52] VITALS: BP 134/91
--- NOTE | 2020-05-28 02:56 | Emergency Room Report ---
History of Present Illness General Chief Complaint: Headache Source: Patient, Medical Record Present Illness HPI This is a 54-year-old male with a history of high blood pressure. He presents with chief complaint of headache. Onset today. He said that headache is different than his usual. Localized to the left side. Also said that his blood pressure was high. Normally runs 120s to 130s systolic. Today he said he keeps creeping up to a high of 190/110. He took an extra dose of his atenolol. He denies any focal deficit. Pain is 8 out of 10. Throbbing in nature. No fever chills. No cough or congestion. No change in his diet. He claimed that he is compliant with his medication. 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 Patient History Past Medical History: see triage record, old chart reviewed, HTN Past Surgical History: other Pertinent Family History: none Social History: Reports: smoking Immunizations: other Reviewed Nursing Documentation: PMH: Agreed; PSxH: Agreed Nursing Documentation-PMH Hx Cardiac Problems: Yes - H/O OF HEART ATTACK Hx Hypertension: Yes Hx Diabetes: Yes Hx Gastrointestinal Problems: Yes - gallbladder (unknown diagnosis), cholecystectomy Hx Neurological Problems: Yes - Chronic Pain left-facial area Review of Systems Eye: Denies: eye pain, blurred vision ENT: Denies: ear pain, nose congestion, throat swelling Respiratory: Denies: cough, shortness of breath Cardiovascular: Denies: chest pain, palpitations Gastrointestinal: Denies: abdominal pain, diarrhea, nausea, vomiting Musculoskeletal: Denies: back pain, joint pain Skin: Denies: rash Neurological: Reports: headache; Denies: numbness Endocrine: Denies: increased thirst, increased urine Hematologic/Lymphatic: Denies: easy bruising All Other Systems: negative except mentioned in HPI Physical Exam Vital Signs Date Time Temp Pulse Resp B/P (MAP) Pulse Ox O2 Delivery O2 Flow Rate FiO2 05/28/20 02:38 98.2 93 18 134/91 (105) 96 Room Air Vitals unremarkable Sp02 EP Interpretation: reviewed, normal General Appearance: well appearing, no apparent distress, alert Head: normocephalic, atraumatic Eyes: bilateral eye PERRL, bilateral eye EOMI ENT: hearing grossly normal, normal pharynx Neck: full range of motion, supple, no meningismus Respiratory: chest non-tender, lungs clear, normal breath sounds Cardiovascular #1: regular rate, rhythm, no murmur Gastrointestinal: normal bowel sounds, non tender, no mass, no organomegaly, no bruit, non-distended Musculoskeletal: back normal, normal range of motion, gait/station normal Psychiatric: mood/affect normal Medical Decision Making Diagnostic Impression: Primary Impression: Headache Qualified Codes: R51.9 - Headache, unspecified Additional Impression: Hypertension Qualified Codes: I10 - Essential (primary) hypertension ER Course Patient presents with headache and high blood pressure. No evidence of intracranial bleed, meningitis or neoplastic process. He felt better now. Blood pressures been stable here. He said his only taking 25 mg of atenolol. Told patient that he can increase it to 50 mg if blood pressure remains high at home. CT/MRI/US Diagnostic Results CT/MRI/US Diagnostic Results : Imaging Test Ordered: CT head Impression Read by radiologist. Negative. Last Vital Signs Date Time Temp Pulse Resp B/P (MAP) Pulse Ox O2 Delivery O2 Flow Rate FiO2 05/28/20 02:38 98.2 93 18 134/91 (105) 96 Room Air Status: improved Disposition: HOME, SELF-CARE Condition: Improved Patient Instructions: General Headache Without Cause Additional Instructions: You may increase your atenolol to twice a day blood pressure remains high. Fo llow-up with your doctor in 7 days. Return if symptoms worsen. Akhil Kuhn MD May 28, 2020 02:56
--- NOTE | 2020-05-28 03:35 | Diagnostic Imaging Report ---
EXAM: CT Head Without Intravenous Contrast CLINICAL HISTORY: PAIN TECHNIQUE: Axial computed tomography images of the head/brain without intravenous contrast. CTDI is 53.4 mGy and DLP is 1040.2 mGy-cm. One or more of the following dose reduction techniques were used: automated exposure control, adjustment of the mA and/or kV according to patient size, use of iterative reconstruction technique. COMPARISON: 12/16/19 FINDINGS: Brain: Patchy low attenuation in the periventricular white matter is most consistent with chronic small vessel disease. Area of encephalomalacia from area of chronic infarction anterior left periventricular white matter including adjacent to the head of caudate nucleus. Negative for mass-effect or intracranial hemorrhage. Ventricles: No change in mild ventriculomegaly. Bones/joints: Unremarkable. No acute fracture. Soft tissues: Unremarkable. Sinuses: Unremarkable as visualized. No acute sinusitis. Mastoid air cells: Unremarkable as visualized. No mastoid effusion. Other findings: Imaging mildly degraded by motion. IMPRESSION: No acute findings
--- NOTE | 2020-05-28 03:50 | NUR ---
ED Nurse Note:BP 134/96, HR86, 100% room air. Headache is 5/10
--- NOTE | 2020-05-28 03:50 | NUR ---
ER DISCHARGE NOTE:Patient is cleared to be discharged per ERMD, pt is aox4, on room air, with stable vital signs. pt was given dc instructions, pt was able to verbalize understanding, pt id band removed without complications. pt is able to ambulate with steady gait. pt took all belongings.
[2020-05-28 03:57] VITALS: BP 134/86
== END 2020-05-28 04:00 | disposition home or self-care (01) ==
LOC: EMR 02:50
DX: R51.9 Headache, unspecified (principal); I10 Essential (primary) hypertension; E11.9 Type 2 diabetes mellitus without complications; I25.2 Old myocardial infarction; Z90.49 Acquired absence of other specified parts of digestive tract; Z79.82 Long term (current) use of aspirin; Z79.4 Long term (current) use of insulin
CPT/HCPCS: 70450; Z7502; 99284